=== PATIENT | female | born 1955 | race Caucasian/White ===

== ENCOUNTER 2021-08-31 16:41 | Inpatient (IN) | payer MEDICARE, OTHER, SELFPAY ==
--- NOTE | ~2021-08-31 | XR_ITS ---
EXAMINATION: XR CHEST CLINICAL INFORMATION: Hypoxia COMPARISON: Previous CXR from 11/19/2021 TECHNIQUE: Frontal view of the chest was obtained. FINDINGS: No significant abnormality is noted involving the heart, lungs, mediastinum, bony thorax or soft tissues. XR/XR chest 1V IMPRESSION: Unremarkable examination.
--- NOTE | ~2021-08-31 | XR_ITS ---
EXAMINATION: XR CHEST, 2 VIEWS CLINICAL INFORMATION: Hypoxemia COMPARISON: None. TECHNIQUE: PA and lateral views of the chest were obtained. FINDINGS: Lungs are clear. No consolidation, pneumothorax, or pleural effusion. Cardiac and mediastinal contours are normal. Pulmonary vasculature is unremarkable. Trachea is midline. Osseous structures are unremarkable. Degenerative spondylosis in the thoracic spine. XR/XR chest 2V IMPRESSION: No acute cardiopulmonary findings
--- NOTE | 2021-08-31 17:02 | ED_ITS ---
HPI - General Adult General Chief complaint: Psychiatric Symptoms <CARLEY Schmitt Last Filed: 09/01/21 01:08> Stated complaint: CRISIS, SECTION 12 <CARLEY Schmitt Last Filed: 09/01/21 01:08> Time Seen by Provider: 08/31/21 16:44 <CARLEY Schmitt Last Filed: 09/01/21 01:08> Source: patient and EMS <CARLEY Schmitt Last Filed: 09/01/21 01:08> Mode of arrival: EMS <CARLEY Schmitt Last Filed: 09/01/21 01:08> History of Present Illness HPI narrative: 65-year-old female with a past medical history of schizophrenia BIBA after having family conflict, and being off medications x3 weeks. Patient reports she does not need to be in the hospital, he does not need her family, and she does not need her medications any more. Denies SI/HI. Denies visual or auditory hallucinations, ETOH or illicit drug use, CP/SOB, abdominal pain, nausea/vomiting Patient not forthcoming with history <CARLEY Schmitt Last Filed: 09/01/21 01:08> Related Data Allergies/adverse reactions: Allergies Allergy/AdvReac Type Severity Reaction Status Date / Time No Known Allergies Allergy Unverified 08/05/20 17:11 [No Known Allergies*] <CARLEY Schmitt Last Filed: 09/01/21 01:08> Review of Systems Review of Systems: Constitutional: No Fever, No Chills, No Fatigue, No Malaise ENT/Mouth: No Ear Pain, No Nasal Congestion, No sore throat, No Rhinorrhea Eyes: No Eye Pain, No Vision Changes Cardiovascular: No Chest Pain, No SOB Respiratory: No Cough, No Dyspnea Gastrointestinal: No Nausea, No Vomiting, No Diarrhea, No Constipation, No Abdominal pain Genitourinary: No Dysuria, No Urinary Frequency, No Flank Pain Musculoskeletal: No joint pain, No Myalgias, No Joint Swelling Skin: No Skin Lesions, No rash Neuro: No Weakness, No Headache Psych: No Anxiety/Panic, No Depression, No SI/HI, No AH/VH, No Social Issues <CARLEY Schmitt Last Filed: 09/01/21 01:08> Yes all other systems are reviewed and are negative <CARLEY Schmitt - Last Filed: 09/01/21 01:08> FOR[facility]LY [facility] Past Medical History Attestation statement: The following information was validated with the patient. <CARLEY Schmitt - Last Filed: 09/01/21 01:08> Social History Social History: Social History Advance Directives: No Advance Directives Information Provided: Yes Patient : No <CARLEY Schmitt - Last Filed: 09/01/21 01:08> Physical Exam Vital Signs: Vital Signs: Last Vital Signs Temp 98.0 F 08/31/21 23:07 Pulse 79 09/01/21 06:43 Resp 17 08/31/21 23:07 BP 134/66 09/01/21 06:43 Pulse Ox 97 09/01/21 06:43 Body Mass Index 32.3 <CARLEY Schmitt - Last Filed: 09/01/21 01:08> Vital Signs: Last Vital Signs Temp 98.0 F 08/31/21 23:07 Pulse 79 09/01/21 06:43 Resp 17 08/31/21 23:07 BP 134/66 09/01/21 06:43 Pulse Ox 97 09/01/21 06:43 Body Mass Index 32.3 <Ezra Mclaughlin MD - Last Filed: 09/01/21 08:23> Const: General: cooperative, healthy appearing and no acute distress <CARLEY Schmitt - Last Filed: 09/01/21 01:08> Limitations: no limitations <CARLEY Schmitt - Last Filed: 09/01/21 01:08> HENMT: Head: Yes normal to inspection <CARLEY Schmitt - Last Filed: 09/01/21 01:08> Ears: hearing grossly normal bilaterally <CARLEY Schmitt - Last Filed: 09/01/21 01:08> General nose exam: Normal external nose present <CARLEY Schmitt - Last Filed: 09/01/21 01:08> Face and sinus: Yes normal facial exam <CARLEY Schmitt - Last Filed: 09/01/21 01:08> Eyes: General: appearance normal, both eyes and all related structures <CARLEY Schmitt - Last Filed: 09/01/21 01:08> Pupils: Equal, round and reactive pupils present <Chula Eva [facility] Last Filed: 09/01/21 01:08> EOM: EOMs intact bilaterally <Chula [facility] - Last Filed: 09/01/21 01:08> Neck: Neck: Yes normal visual inspection and Yes no meningeal signs <Chula Eva [facility] Last Filed: 09/01/21 01:08> Resp: Effort & Inspection: normal respiratory effort <Chula [facility] - Last Filed: 09/01/21 01:08> Auscultation: clear to auscultation bilaterally, no crackles and no wheezes <Chula [facility] - Last Filed: 09/01/21 01:08> Cardio: Rate: regular rate <Chula Eva [facility] Last Filed: 09/01/21 01:08> Heart sounds: S1 normal heart sound present and S2 normal heart sound present <Chula [facility] - Last Filed: 09/01/21 01:08> GI: Inspection: Yes normal to inspection <Chula Eva [facility] Last Filed: 09/01/21 01:08> Palpation (GI): Soft to palpation, nontender, no guarding and not rigid <Chula [facility] - Last Filed: 09/01/21 01:08> Skin: Rashes: no rashes <Chula [facility] - Last Filed: 09/01/21 01:08> Wounds: no wounds <Chula Eva [facility] Last Filed: 09/01/21 01:08> Neuro: General: gait normal, tone normal, moves all extremities and no meningeal signs <Chula Eva [facility] Last Filed: 09/01/21 01:08> Cranial nerves: Yes CN's II-XII intact bilaterally and Yes Equal, round and reactive pupils present <Chula [facility] - Last Filed: 09/01/21 01:08> Gait exam (Neuro): Normal gait present <Chula Eva [facility] Last Filed: 09/01/21 01:08> Extrem: General: Yes normal to inspection <Chula [facility] - Last Filed: 09/01/21 01:08> Psych: Affect: Irritable affect present and Blunted affect present <CARLEY Schmitt - Last Filed: 09/01/21 01:08> Attitude: Guarded attititude/behavior present and Avoids eye contact (attititude/behavior) <CARLEY Schmitt - Last Filed: 09/01/21 01:08> Thought content: suicidality and no homicidality <CARLEY Schmitt Last Filed: 09/01/21 01:08> Insight: Limited insight present (Psych) <CARLEY Schmitt Last Filed: 09/01/21 01:08> Judgement: Limited judgement present (Psych) <CARLEY Schmitt - Last Filed: 09/01/21 01:08> Course Course Course Narrative: -1833--mild leukocytosis of 11 -AST/ALT mildly elevated. Labs otherwise unremarkable. Tox screen negative -0100--ED care transferred to Dr. Azul pending crisis eval. Patient placed in physician observation as needs more time to be evaluated by crisis <CARLEY Schmitt Last Filed: 09/01/21 01:08> -1833--mild leukocytosis of 11 -AST/ALT mildly elevated. Labs otherwise unremarkable. Tox screen negative -0100--ED care transferred to Dr. Azul pending crisis eval. Patient placed in physician observation as needs more time to be evaluated by crisis 08:15 patient re-evaluated by ED MD, Dr. Mclaughlin, patient awaiting placement, has been stable overnight. <Ezra Mclaughlin MD - Last Filed: 09/01/21 08:23> Medical Decision Making MDM Narrative Medical decision making narrative: 65-year-old female with a past medical history of schizophrenia BIBA after having family conflict, and being off medications x3 weeks. Patient reports she does not need to be in the hospital, he does not need her family, and she does not need her medications any more. On exam tachycardic, NAD, not forthcoming with history, guarded. Denies SI/HI. Exam nonfocal Plan: Labs, UA, BROOKS, crisis consult <CARLEY Schmitt Last Filed: 09/01/21 01:08> Lab Data Result diagrams: : 08/31/21 18:02 08/31/21 18:02 <CARLEY Schmitt - Last Filed: 09/01/21 01:08> Labs: Lab Results 08/31/21 08/31/21 08/31/21 Range/Units 18:02 18:02 18:44 WBC 11.0 H (4.8-10.8) X10*3/uL RBC 4.60 (4.20-5.50) X10*6/uL Hgb 14.2 (12.0-16.0) g/dl Hct 42.4 (37-47) % MCV 92.2 (80-98) fL MCH 30.9 (27.0-33.0) pg MCHC 33.5 (31.0-35.0) g/dl RDW 12.9 (11.0-16.0) % Plt Count 337 (160-400) X10*3/uL MPV 8.9 L (9.4-12.3) fL Immature Gran % (Auto) 1.1 H (0.0-0.4) % Neut % (Auto) 74.9 H (45-73) % Lymph % (Auto) 14.7 L (20-40) % Reagan % (Auto) 7.6 (2-11) % Eos % (Auto) 1.2 (0-4) % Baso % (Auto) 0.5 (0-2) % Lymph # (Auto) 1.6 (1.2-4.9) X10*3/uL Reagan # (Auto) 0.8 (0.1-1.2) X10*3/uL Eos # (Auto) 0.1 (0.0-0.4) X10*3/uL Baso # (Auto) 0.1 (0.0-0.2) X10*3/uL Abs Immat Gran (auto) 0.12 H (0.00-0.03) X10*3/uL Absolute Neuts (auto) 8.2 (2.0-8.3) X10*3/uL Absolute Nucleated RBC 0.000 (0.0-0.012) X10*3/uL Nucleated RBC % (auto) 0.0 (0.0-0.2) /100WBC Sodium 142 (135-145) mmol/L Potassium 4.5 (3.3-5.1) mmol/L Chloride 105 (96-108) mmol/L Carbon Dioxide 28 (22-29) mmol/L Anion Gap 14 (12-20) BUN 13 (9-16) mg/dL Creatinine 1.24 (0.5-1.4) mg/dL Estim Creat Clear Calc 42.0 Estimated GFR 44 Random Glucose 128 H (60-115) mg/dL Calcium 10.6 H (8.4-10.2) mg/dL Total Bilirubin 0.2 (0.0-1.0) mg/dL Direct Bilirubin < 0.2 (0.0-0.5) mg/dL AST 33 H (5-31) U/L ALT 47 H (0-31) U/L Alkaline Phosphatase 109 (39-117) U/L Total Protein 6.7 (6.5-8.0) g/dL Albumin 4.4 (3.5-5.0) g/dL Urine Opiates Screen (Not Detect) Urine Fentanyl Screen (Not Detect) Ur Barbiturates Screen (Not Detect) Ur Phencyclidine Scrn (Not Detect) Ur Amphetamines Screen (Not Detect) U Benzodiazepines Scrn (Not Detect) Urine Cocaine Screen (Not Detect) U Marijuana (THC) Screen (Not Detect) COVID-19 (ABIODUN) Negative (Negative) COVID-19 Clin Com See Note 08/31/21 Range/Units 18:54 WBC (4.8-10.8) X10*3/uL RBC (4.20-5.50) X10*6/uL Hgb (12.0-16.0) g/dl Hct (37-47) % MCV (80-98) fL MCH (27.0-33.0) pg MCHC (31.0-35.0) g/dl RDW (11.0-16.0) % Plt Count (160-400) X10*3/uL MPV (9.4-12.3) fL Immature Gran % (Auto) (0.0-0.4) % Neut % (Auto) (45-73) % Lymph % (Auto) (20-40) % Reagan % (Auto) (2-11) % Eos % (Auto) (0-4) % Baso % (Auto) (0-2) % Lymph # (Auto) (1.2-4.9) X10*3/uL Reagan # (Auto) (0.1-1.2) X10*3/uL Eos # (Auto) (0.0-0.4) X10*3/uL Baso # (Auto) (0.0-0.2) X10*3/uL Abs Immat Gran (auto) (0.00-0.03) X10*3/uL Absolute Neuts (auto) (2.0-8.3) X10*3/uL Absolute Nucleated RBC (0.0-0.012) X10*3/uL Nucleated RBC % (auto) (0.0-0.2) /100WBC Sodium (135-145) mmol/L Potassium (3.3-5.1) mmol/L Chloride (96-108) mmol/L Carbon Dioxide (22-29) mmol/L Anion Gap (12-20) BUN (9-16) mg/dL Creatinine (0.5-1.4) mg/dL Estim Creat Clear Calc Estimated GFR Random Glucose (60-115) mg/dL Calcium (8.4-10.2) mg/dL Total Bilirubin (0.0-1.0) mg/dL Direct Bilirubin (0.0-0.5) mg/dL AST (5-31) U/L ALT (0-31) U/L Alkaline Phosphatase (39-117) U/L Total Protein (6.5-8.0) g/dL Albumin (3.5-5.0) g/dL Urine Opiates Screen Not Detected (Not Detect) Urine Fentanyl Screen Not Detected (Not Detect) Ur Barbiturates Screen Not Detected (Not Detect) Ur Phencyclidine Scrn Not Detected (Not Detect) Ur Amphetamines Screen Not Detected (Not Detect) U Benzodiazepines Scrn Not Detected (Not Detect) Urine Cocaine Screen Not Detected (Not Detect) U Marijuana (THC) Screen Not Detected (Not Detect) COVID-19 (ABIODUN) (Negative) COVID-19 Clin Com <CARLEY Schmitt - Last Filed: 09/01/21 01:08> Lab Results 08/31/21 08/31/21 08/31/21 Range/Units 18:02 18:02 18:44 WBC 11.0 H (4.8-10.8) X10*3/uL RBC 4.60 (4.20-5.50) X10*6/uL Hgb 14.2 (12.0-16.0) g/dl Hct 42.4 (37-47) % MCV 92.2 (80-98) fL MCH 30.9 (27.0-33.0) pg MCHC 33.5 (31.0-35.0) g/dl RDW 12.9 (11.0-16.0) % Plt Count 337 (160-400) X10*3/uL MPV 8.9 L (9.4-12.3) fL Immature Gran % (Auto) 1.1 H (0.0-0.4) % Neut % (Auto) 74.9 H (45-73) % Lymph % (Auto) 14.7 L (20-40) % Reagan % (Auto) 7.6 (2-11) % Eos % (Auto) 1.2 (0-4) % Baso % (Auto) 0.5 (0-2) % Lymph # (Auto) 1.6 (1.2-4.9) X10*3/uL Reagan # (Auto) 0.8 (0.1-1.2) X10*3/uL Eos # (Auto) 0.1 (0.0-0.4) X10*3/uL Baso # (Auto) 0.1 (0.0-0.2) X10*3/uL Abs Immat Gran (auto) 0.12 H (0.00-0.03) X10*3/uL Absolute Neuts (auto) 8.2 (2.0-8.3) X10*3/uL Absolute Nucleated RBC 0.000 (0.0-0.012) X10*3/uL Nucleated RBC % (auto) 0.0 (0.0-0.2) /100WBC Sodium 142 (135-145) mmol/L Potassium 4.5 (3.3-5.1) mmol/L Chloride 105 (96-108) mmol/L Carbon Dioxide 28 (22-29) mmol/L Anion Gap 14 (12-20) BUN 13 (9-16) mg/dL Creatinine 1.24 (0.5-1.4) mg/dL Estim Creat Clear Calc 42.0 Estimated GFR 44 Random Glucose 128 H (60-115) mg/dL Calcium 10.6 H (8.4-10.2) mg/dL Total Bilirubin 0.2 (0.0-1.0) mg/dL Direct Bilirubin < 0.2 (0.0-0.5) mg/dL AST 33 H (5-31) U/L ALT 47 H (0-31) U/L Alkaline Phosphatase 109 (39-117) U/L Total Protein 6.7 (6.5-8.0) g/dL Albumin 4.4 (3.5-5.0) g/dL Urine Opiates Screen (Not Detect) Urine Fentanyl Screen (Not Detect) Ur Barbiturates Screen (Not Detect) Ur Phencyclidine Scrn (Not Detect) Ur Amphetamines Screen (Not Detect) U Benzodiazepines Scrn (Not Detect) Urine Cocaine Screen (Not Detect) U Marijuana (THC) Screen (Not Detect) COVID-19 (ABIODUN) Negative (Negative) COVID-19 Clin Com See Note 08/31/21 Range/Units 18:54 WBC (4.8-10.8) X10*3/uL RBC (4.20-5.50) X10*6/uL Hgb (12.0-16.0) g/dl Hct (37-47) % MCV (80-98) fL MCH (27.0-33.0) pg MCHC (31.0-35.0) g/dl RDW (11.0-16.0) % Plt Count (160-400) X10*3/uL MPV (9.4-12.3) fL Immature Gran % (Auto) (0.0-0.4) % Neut % (Auto) (45-73) % Lymph % (Auto) (20-40) % Reagan % (Auto) (2-11) % Eos % (Auto) (0-4) % Baso % (Auto) (0-2) % Lymph # (Auto) (1.2-4.9) X10*3/uL Reagan # (Auto) (0.1-1.2) X10*3/uL Eos # (Auto) (0.0-0.4) X10*3/uL Baso # (Auto) (0.0-0.2) X10*3/uL Abs Immat Gran (auto) (0.00-0.03) X10*3/uL Absolute Neuts (auto) (2.0-8.3) X10*3/uL Absolute Nucleated RBC (0.0-0.012) X10*3/uL Nucleated RBC % (auto) (0.0-0.2) /100WBC Sodium (135-145) mmol/L Potassium (3.3-5.1) mmol/L Chloride (96-108) mmol/L Carbon Dioxide (22-29) mmol/L Anion Gap (12-20) BUN (9-16) mg/dL Creatinine (0.5-1.4) mg/dL Estim Creat Clear Calc Estimated GFR Random Glucose (60-115) mg/dL Calcium (8.4-10.2) mg/dL Total Bilirubin (0.0-1.0) mg/dL Direct Bilirubin (0.0-0.5) mg/dL AST (5-31) U/L ALT (0-31) U/L Alkaline Phosphatase (39-117) U/L Total Protein (6.5-8.0) g/dL Albumin (3.5-5.0) g/dL Urine Opiates Screen Not Detected (Not Detect) Urine Fentanyl Screen Not Detected (Not Detect) Ur Barbiturates Screen Not Detected (Not Detect) Ur Phencyclidine Scrn Not Detected (Not Detect) Ur Amphetamines Screen Not Detected (Not Detect) U Benzodiazepines Scrn Not Detected (Not Detect) Urine Cocaine Screen Not Detected (Not Detect) U Marijuana (THC) Screen Not Detected (Not Detect) COVID-19 (ABIODUN) (Negative) COVID-19 Clin Com <Ezra Mclaughlin MD - Last Filed: 09/01/21 08:23> Discharge Plan Discharge Clinical Impression: Chronic schizophrenia <CARLEY Schmitt - Last Filed: 09/01/21 01:08>
[2021-08-31 17:06] VITALS: BP 141/98; PULSE 117; RESP 16; TEMP 36.6; O2SAT 96; BMI 32.3
[2021-08-31 18:10] LABS: MANUAL DIFF FLAG NO
[2021-08-31 18:21] LABS: Basophils Absolute Auto 0.1 X10*3/uL (0.0-0.2); Basophils Percent Auto 0.5 % (0-2); Eosinophils Absolute Auto 0.1 X10*3/uL (0.0-0.4); Eosinophils Percent Auto 1.2 % (0-4); Hematocrit 42.4 % (37-47); Hemoglobin 14.2 g/dl (12.0-16.0); Imm Gran Abs Auto 0.12 X10*3/uL (0.00-0.03); Imm Gran Pct Auto 1.1 % (0.0-0.4); Lymphocytes Absolute Auto 1.6 X10*3/uL (1.2-4.9); Lymphocytes Percent Auto 14.7 % (20-40); Mean Corpuscular HGB Conc 33.5 g/dl (31.0-35.0); Mean Corpuscular Hemoglobin 30.9 pg (27.0-33.0); Mean Corpuscular Volume 92.2 fL (80-98); Mean Platelet Volume 8.9 fL (9.4-12.3); Monocytes Absolute Auto 0.8 X10*3/uL (0.1-1.2); Monocytes Percent Auto 7.6 % (2-11); Neutrophils Absolute Auto 8.2 X10*3/uL (2.0-8.3); Neutrophils Percent Auto 74.9 % (45-73); Platelet Count 337 X10*3/uL (160-400); Red Cell Distribution Width 12.9 % (11.0-16.0)
[2021-08-31 18:38] LABS: Alanine Aminotransferase 47 U/L (0-31); Albumin Level 4.4 g/dL (3.5-5.0); Alkaline Phosphatase 109 U/L (39-117); Anion Gap 14 (12-20); Aspartate Amino Transferase 33 U/L (5-31); Bilirubin Direct < 0.2 mg/dL (0.0-0.5); Bilirubin Total 0.2 mg/dL (0.0-1.0); Blood Urea Nitrogen 13 mg/dL (9-16); Carbon Dioxide 28 mmol/L (22-29); Chloride 105 mmol/L (96-108); Estimated Glomerular Filt Rate 44; Glucose Random 128 mg/dL (60-115); Potassium 4.5 mmol/L (3.3-5.1); Sodium 142 mmol/L (135-145); Total Protein 6.7 g/dL (6.5-8.0)
[2021-08-31 18:43] LABS: Calcium 10.6 mg/dL (8.4-10.2)
[2021-08-31 19:13] LABS: COVID-19 Test Negative (Negative); IDNOW Serial# 9DD0AD1C
[2021-08-31 19:18] LABS: Amphetamine Screen Urine Not Detected (Not Detect); Barbiturates, Urine Not Detected (Not Detect); Benzodiazepines Screen Urine Not Detected (Not Detect); Cannabinoid Screen Urine Not Detected (Not Detect); Cocaine Screen Urine Not Detected (Not Detect); Fentanyl, urine Not Detected (Not Detect); Opiate Screen Urine Not Detected (Not Detect); Phencyclidine Screen Urine Not Detected (Not Detect)
--- NOTE | 2021-08-31 23:03 | PC.NURSE ---
Patient seems preoccupied and upset for being here. Patient stated I should not be here off her medication for over month. Affect is flat. Denied being anxious, offered/refused prn medication, will continue to monitor.
[2021-08-31 23:07] VITALS: BP 149/73; PULSE 111; RESP 17; TEMP 36.7; O2SAT 95
--- NOTE | 2021-09-01 05:17 | PC.NURSE ---
Patient slept through the night, no distress observed/reported, behavior calm, quiet, isolative, affect flat. VSS, Patient disposition per [facility] is section 12 inpatient bed search, appetite good, patient is off her medication for over a month, will continue to monitor.
[2021-09-01 06:43] VITALS: BP 134/66; PULSE 79; O2SAT 97
--- NOTE | 2021-09-01 07:19 | PC.NURSE ---
patient appears to remain at rest at present patient appears in no distress
[2021-09-01 08:43] VITALS: BP 143/74; PULSE 92; TEMP 37.3; O2SAT 94
--- NOTE | 2021-09-01 09:21 | PHA.MEDREC ---
Pharmacy Consult ? Medication Reconciliation Pharmacy has completed the medication reconciliation. Patient reports she has taken any medication for 3-4 weeks. The only thing she takes is ibuprofen for tooth pain, but has not had any pain recently. Tata Pham, PharmD
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
[2021-09-01 18:00] VITALS: BP 114/73; PULSE 111; RESP 16; TEMP 37; O2SAT 95
--- NOTE | 2021-09-01 20:04 | PC.NURSE ---
Pt is a 65 year old unmarried female admitted to the unit on a section 12b from [facility] ed pod where she was brought after a BHN assessment was called to a mobile unit; per crisis report and pt report, police had to pick the lock to enter pt's home and bring her to the hospital. Per crisis report pt's four sisters became concerned as she was calling them all at different times and sounded disorganized and paranoid. Pt has a long history of psychiatric illness starting age 20 and has had multiple hospitalizations and several suicide attempts by overdose; at this time she denies having had any suicidal thoughts or behaviors, stating, I stopped taking my medications about three weeks ago because my right arm was shaking . Pt at times has good eye contact and is fully oriented; she was guarded and became irritable during the admission, refusing to sign legal documents, which she seemed suspicious about, and insisting she is here against her will and that her sisters put me here . Pt receives services from [facility]. Pt is on 15 minute checks, section 12 is up on Thursday 09/06, [facility]orne is aware of pt's admit, meds verified with [facility].
--- NOTE | 2021-09-01 21:37 | PC.ADMIT ---
Addendum entered by Sunitha Almaraz RN 09/01/21 21:42: corrrection to legal status, pt is nolonger a 12b, signed a CV Original Note: Pt is a 65 year old unmarried female admitted to the unit on a section 12b from [facility] ed pod where she was brought after a BHN assessment was called to a mobile unit; per crisis report and pt report, police had to pick the lock to enter pt's home and bring her to the hospital. Per crisis report pt's four sisters became concerned as she was calling them all at different times and sounded disorganized and paranoid. Pt has a long history of psychiatric illness starting age 20 and has had multiple hospitalizations and several suicide attempts by overdose; at this time she denies having had any suicidal thoughts or behaviors, stating, I stopped taking my medications about three weeks ago because my right arm was shaking . Pt at times has good eye contact and is fully oriented; she was guarded and became irritable during the admission, refusing to sign legal documents, which she seemed suspicious about, and insisting she is here against her will and that her sisters put me here . Pt receives services from [facility]. Pt is on 15 minute checks, section 12 is up on Thursday 09/06, [facility] is aware of pt's admit, meds verified with [facility]. Initialized on 09/01/21 20:04 - END OF NOTE
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
[2021-09-02 08:40] VITALS: BP 140/71; PULSE 86
[2021-09-02 08:48] LABS: Estimated Average Glucose 134 mg/dL; Hemoglobin A1c % 6.3 %
[2021-09-02 09:28] LABS: Cholesterol 178 mg/dL; HDL Cholesterol 35 mg/dL; LDL Cholesterol Calculated 110 mg/dl; Triglycerides 168 mg/dL
[2021-09-02 09:38] LABS: Free T4 (Free Thyroxine) 0.98 ng/dL (0.71-1.85); Thyroid Stimulating Hormone 0.58 uIU/mL (0.32-4.0)
[2021-09-02 09:49] LABS: Folate 11.6 ng/mL (> or = 4.0); Vitamin B12 481 pg/mL (200-900)
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
[2021-09-03 06:00] VITALS: BP 147/70; PULSE 91; RESP 18; TEMP 36.7; O2SAT 95
--- NOTE | 2021-09-03 12:22 | PC.NURSE ---
pt refusing all am medication. dr. roche aware.
--- NOTE | 2021-09-03 22:18 | HO.PSYCHPN ---
Subjective Subjective Date of Service: 09/04/21 Reason For Visit: schizophrenia Subjective Notes: Conditional Voluntary Healthcare Proxy: No Guardianship: No Interim History: Pt has been withdrawn mostly not engaged refusing shower meds isolative and withdrawn Medication Compliance: No Attending Groups: No Mental Status Exam Mental Status Exam Narrative: Appearance: casually groomed, fair hygiene in NAD Behavior: guarded although fairly pleasant when she recognized this telegraphic typewriter repairer from previous admission psychomotor: some restlessness Speech:mumbles at times, minimally spontaneous, delayed response Thought process:thought blocking Thought content:guarded, wanting to go back home Mood: okay Affect: suspicious, guarded SI:none HI:none VH/AH:denies but appears internally preoccupied Delusions:paranoid delusions Insight/judgment:impaired x 3 Memory/cog: alert, impaired secondary to psychiatric symptoms. Diagnostics Vital Signs (24Hr): Vital Signs - 24 hr 09/03/21 06:00 Temperature 98.0 F Pulse Rate 91 Respiratory Rate 18 Blood Pressure 147/70 H Pulse Oximetry 95 Body Mass Index 32.3 Labs Results: 08/31/21 18:02 08/31/21 18:02 Labs: Laboratory Results - last 48 hr 09/02/21 09/02/21 09/02/21 08:06 08:06 08:06 Estimat Average Glucose 134 Hemoglobin A1c % 6.3 Triglycerides 168 Cholesterol 178 LDL Cholesterol, Calc 110 HDL Cholesterol 35 Vitamin B12 481 Folate 11.6 TSH 0.58 Free T4 0.98 Medications Medications Current Medications Acetaminophen (Acetaminophen 325 Mg Tablet) 650 mg PO Q6H PRN PRN Reason: Headache/Pain Mild Scale (1-3) Al Hydroxide/Mg Hydroxide (Magnesium Hydrox/Alum Hydrox 30 Ml Oral.Susp) 30 ml PO Q6H PRN PRN Reason: Heartburn/Nausea Haloperidol (Haloperidol 1 Mg Tablet) 2 mg PO BID [facility] Last Admin: 09/03/21 21:29 Dose: Not Given Documented by: Hydroxyzine HCl (Hydroxyzine Hcl 25 Mg Tablet) 25 mg PO BEDTIME PRN PRN Reason: Anxiety Ibuprofen (Ibuprofen 400 Mg Tablet) 400 mg PO Q6H PRN PRN Reason: tooth pain Lorazepam (Lorazepam 1 Mg Tablet) 1 mg PO Q4H PRN PRN Reason: insomnia/anxiety Magnesium Hydroxide (Milk Of Magnesia 30 Ml Oral.Susp) 30 ml PO DAILY PRN PRN Reason: Constipation Olanzapine (Olanzapine 5 Mg Tablet) 5 mg PO Q4H PRN PRN Reason: agitation Pharmacy Consult (Consult Rx Perform Med Rec) 1 each MISCELLANE ONCE PRN PRN Reason: Consult order Propranolol HCl (Propranolol Hcl 20 Mg Tablet) 20 mg PO TID [facility]; Protocol Last Admin: 09/03/21 21:30 Dose: Not Given Documented by: Trazodone HCl (Trazodone Hcl 50 Mg Tablet) 50 mg PO BEDTIME PRN PRN Reason: Insomnia Allergies Allergies Allergy/AdvReac Type Severity Reaction Status Date / Time No Known Allergies Allergy Unverified 08/05/20 17:11 [No Known Allergies*] Assessment & Plan Assessment & Plan (1) Schizoaffective disorder, bipolar type: Status: Acute Code(s): F25.0 - Schizoaffective disorder, bipolar type Assessment and Plan: Ms. Carvajal is a 65 year-old woman with hx of schizoaffective disorder who was brought to [facility] via EMS as pt presented increasingly more paranoid, disorganized and unable to care for self (not eating well, not following with appointments which she regularly does). We discussed risks, benefits and alternative treatment options PLAN 1. Admit to M5 2. for now continue haldol 2mg po BID, will titrate as needed. 3. obtain collateral information 4. Aftercare planning 5. monitor safety- currently on 15 checks cont above encourage acceptance of tx . Greater than 50% of the session was spent on counseling and/or coordination of care Reason for contiued inpatient stay Substantial Risk for: inability to function and rapid decompensation
--- NOTE | 2021-09-04 11:58 | HO.PSYCHPN ---
Subjective Subjective Date of Service: 09/04/21 Reason For Visit: schizophrenia Subjective Notes: Conditional Voluntary Interim History: Patient withdrawn and internally preoccupied did not engage in conversation vital signs or grooming. Refusing medication Medication Compliance: No Side effects from medications: No Attending Groups: No Review of Systems Refusing propranolol Mental Status Exam Mental Status Exam Patient Appearance: Disheveled Patient Orientation: Person and Place Level of Consciousness: Awake Patient Behavior: Guarded and Poor Eye Contact Mood Description: Anxious and Apprehensive Affect Description: Constricted Ability to Follow Directions: Fair Speech Pattern: Clear, Impoverished and Monotone Judgement: Poor Judgement and Insight: Patient refusing medication cannot really explain saying she does not needed anymore. Guarded difficult to evaluate for paranoia or hallucinations patient not willing to engage no gross thoughts of harm to herself or others Diagnostics Vital Signs (24Hr): Body Mass Index 32.3 Labs Results: 08/31/21 18:02 08/31/21 18:02 Medications Medications Current Medications Acetaminophen (Acetaminophen 325 Mg Tablet) 650 mg PO Q6H PRN PRN Reason: Headache/Pain Mild Scale (1-3) Al Hydroxide/Mg Hydroxide (Magnesium Hydrox/Alum Hydrox 30 Ml Oral.Susp) 30 ml PO Q6H PRN PRN Reason: Heartburn/Nausea Haloperidol (Haloperidol 1 Mg Tablet) 2 mg PO BID [facility] Last Admin: 09/04/21 08:10 Dose: Not Given Documented by: Hydroxyzine HCl (Hydroxyzine Hcl 25 Mg Tablet) 25 mg PO BEDTIME PRN PRN Reason: Anxiety Ibuprofen (Ibuprofen 400 Mg Tablet) 400 mg PO Q6H PRN PRN Reason: tooth pain Lorazepam (Lorazepam 1 Mg Tablet) 1 mg PO Q4H PRN PRN Reason: insomnia/anxiety Magnesium Hydroxide (Milk Of Magnesia 30 Ml Oral.Susp) 30 ml PO DAILY PRN PRN Reason: Constipation Olanzapine (Olanzapine 5 Mg Tablet) 5 mg PO Q4H PRN PRN Reason: agitation Pharmacy Consult (Consult Rx Perform Med Rec) 1 each MISCELLANE ONCE PRN PRN Reason: Consult order Propranolol HCl (Propranolol Hcl 20 Mg Tablet) 20 mg PO TID [facility]; Protocol Last Admin: 09/04/21 08:10 Dose: Not Given Documented by: Trazodone HCl (Trazodone Hcl 50 Mg Tablet) 50 mg PO BEDTIME PRN PRN Reason: Insomnia Allergies Allergies Allergy/AdvReac Type Severity Reaction Status Date / Time No Known Allergies Allergy Unverified 08/05/20 17:11 [No Known Allergies*] Assessment & Plan Assessment & Plan (1) Schizoaffective disorder, bipolar type: Status: Acute Code(s): F25.0 - Schizoaffective disorder, bipolar type Assessment and Plan: Ms. Carvajal is a 65 year-old woman with hx of schizoaffective disorder who was brought to [facility] [place] [place] [facility] via EMS as pt presented increasingly more paranoid, disorganized and unable to care for self (not eating well, not following with appointments which she regularly does). We discussed risks, benefits and alternative treatment options PLAN 1. Admit to M5 2. for now continue haldol 2mg po BID, will titrate as needed. 3. obtain collateral information 5. monitor safety- currently on 15 checks cont above encourage acceptance of tx . bove reviewed patient refusing care vital Signs refusing medication refusing to [place] herself Will need to evaluate need for commitment and Raman. Obtain further data regarding ability to care for herself in the community Greater than 50% of the session was spent on counseling and/or coordination of care Reason for contiued inpatient stay Substantial Risk for: inability to function and rapid decompensation
[2021-09-04 18:00] VITALS: RESP 16
--- NOTE | 2021-09-05 10:55 | P.PNPSI_ITS ---
Subjective Subjective Date of Service: 09/05/21 Reason For Visit: schizophrenia Interim History: Pt seen on 09/05 Patient sitting on the bed in her room on approach. Color Mixer introduced self to which patient said she did not want to talk to physician underwriter, saying you're not from this floor..you're not staff here...you're not even from this floor. Color Mixer tried to engage however Patient said I don't think you're a real doctor and then got up and walked out of the room. Medication Compliance: No Mental Status Exam Mental Status Exam Narrative: Patient Appearance:?Disheveled; poor hygiene Patient Orientation:?Person and Place Level of Consciousness:?Awake Patient Behavior:?Guarded, suspicious, not cooperative; Poor Eye Contact Mood Description:?Anxious and irritable Affect Description:?Constricted Ability to Follow Directions:?fair Speech Pattern:?Normal rate, volume and prosody; not pressured; clear Thought process: goal oriented Thought Content: paranoid of staff; denies SI/HI Perception: too guarded to evaluate for AVH Psychomotor agitation/retardation: none Judgment and Insight:?Impaired; Patient refusing medication cannot really explain saying she does not needed anymore; not bathing Diagnostics Vital Signs (24Hr): Vital Signs - 24 hr 09/04/21 18:00 Respiratory Rate 16 Body Mass Index 32.3 Labs Results: 08/31/21 18:02 08/31/21 18:02 Medications Medications Current Medications Acetaminophen (Acetaminophen 325 Mg Tablet) 650 mg PO Q6H PRN PRN Reason: Headache/Pain Mild Scale (1-3) Al Hydroxide/Mg Hydroxide (Magnesium Hydrox/Alum Hydrox 30 Ml Oral.Susp) 30 ml PO Q6H PRN PRN Reason: Heartburn/Nausea Haloperidol (Haloperidol 1 Mg Tablet) 2 mg PO BID [facility] Last Admin: 09/05/21 10:54 Dose: Not Given Documented by: Hydroxyzine HCl (Hydroxyzine Hcl 25 Mg Tablet) 25 mg PO BEDTIME PRN PRN Reason: Anxiety Ibuprofen (Ibuprofen 400 Mg Tablet) 400 mg PO Q6H PRN PRN Reason: tooth pain Lorazepam (Lorazepam 1 Mg Tablet) 1 mg PO Q4H PRN PRN Reason: insomnia/anxiety Magnesium Hydroxide (Milk Of Magnesia 30 Ml Oral.Susp) 30 ml PO DAILY PRN PRN Reason: Constipation Olanzapine (Olanzapine 5 Mg Tablet) 5 mg PO Q4H PRN PRN Reason: agitation Pharmacy Consult (Consult Rx Perform Med Rec) 1 each MISCELLANE ONCE PRN PRN Reason: Consult order Propranolol HCl (Propranolol Hcl 20 Mg Tablet) 20 mg PO TID [facility]; Protocol Last Admin: 09/05/21 10:54 Dose: Not Given Documented by: Trazodone HCl (Trazodone Hcl 50 Mg Tablet) 50 mg PO BEDTIME PRN PRN Reason: Insomnia Allergies Allergies Allergy/AdvReac Type Severity Reaction Status Date / Time No Known Allergies Allergy Unverified 08/05/20 17:11 [No Known Allergies*] Assessment & Plan Assessment & Plan (1) Schizoaffective disorder, bipolar type: Status: Acute Code(s): F25.0 - Schizoaffective disorder, bipolar type Assessment and Plan: Ms. Carvajal is a 65 year-old woman with hx of schizoaffective disorder who was [place] [facility] [place] after sister called 911 as pt presented increasingly more paranoid, disorganized and unable to care for self (not eating well, not following with appointments which she regularly does), not taking meds (history of similar behaviors, missing for days, found in hotel, not caring for self, requiring treatment for dehydration)...Upon inquiry she reports ?Im doing fine.?? Hospital course: isolating refusing meds, vitals; not bathing or grooming outpt prescriber SIRENA Allen last prescribed Depakote 750mg; haldol 0.5mg BID); tried to call but could not get through -SW talked w/ [facility] staff who said on Haldol Dec, patient had tremors. PLAN PT ON CV q15min checks -for now continue haldol 2mg po BID (pt refusing); may need to switch med due to side-effect but currently refuses Will need to evaluate need for commitment and Raman. Obtain further data regarding ability to care for herself in the community Greater than 50% of the session was spent on counseling and/or coordination of care Reason for contiued inpatient stay Substantial Risk for: rapid decompensation and med/psych decompensation
--- NOTE | 2021-09-06 10:29 | P.PNPSI_ITS ---
Subjective Subjective Date of Service: 09/06/21 Reason For Visit: schizophrenia Interim History: Patient sent down next to telegraphic typewriter mechanic who was casually talking with another patient. She asked to be called Manish. Patient was more pleasant with telegraphic typewriter mechanic at this time and talked casually. She asked telegraphic typewriter mechanic about his hobbies and patient and telegraphic typewriter mechanic discussed literature. Patient said that she had always wanted to play the guitar but never got around to taking other than basic lessens. Patient said that she did not want to be here at the hospital, that people came to her door, picked the lock and made her come to the hospital. She says she knows who it was who called an knows why they did so, but would not discuss this further. Patient says she does want to go home but that she might not be ready quite yet. She does not answer why she is not ready and clarifies that she could probably go home now but will hang out here for another couple of days. She does not want to take medications; she says that the medications she was taking are not really that helpful anyway and that no medications in the past have been. Conversation was politely concluded and patient wished telegraphic typewriter mechanic a nice day. Mental Status Exam Mental Status Exam Narrative: ?Patient Appearance:?Disheveled; poor hygiene Patient Orientation:?Person and Place Level of Consciousness:?Awake Patient Behavior: friendly today with telegraphic typewriter mechanic but overall remains?Guarded, suspicious; Poor Eye Contact Mood Description:?Anxious and irritable Affect Description:?Constricted Ability to Follow Directions:?fair Speech Pattern:?Normal rate, volume and prosody; not pressured; clear Thought process: goal oriented Thought Content: paranoid; denies SI/HI Perception: too guarded to evaluate for AVH Psychomotor agitation/retardation: none Judgment and Insight:?Impaired; Patient refusing medication cannot really explain saying she does not needed anymore; not bathing Diagnostics Vital Signs (24Hr): Body Mass Index 32.3 Labs Results: 08/31/21 18:02 08/31/21 18:02 Medications Medications Current Medications Acetaminophen (Acetaminophen 325 Mg Tablet) 650 mg PO Q6H PRN PRN Reason: Headache/Pain Mild Scale (1-3) Al Hydroxide/Mg Hydroxide (Magnesium Hydrox/Alum Hydrox 30 Ml Oral.Susp) 30 ml PO Q6H PRN PRN Reason: Heartburn/Nausea Haloperidol (Haloperidol 1 Mg Tablet) 2 mg PO BID [facility] Last Admin: 09/05/21 20:46 Dose: Not Given Documented by: Hydroxyzine HCl (Hydroxyzine Hcl 25 Mg Tablet) 25 mg PO BEDTIME PRN PRN Reason: Anxiety Ibuprofen (Ibuprofen 400 Mg Tablet) 400 mg PO Q6H PRN PRN Reason: tooth pain Lorazepam (Lorazepam 1 Mg Tablet) 1 mg PO Q4H PRN PRN Reason: insomnia/anxiety Magnesium Hydroxide (Milk Of Magnesia 30 Ml Oral.Susp) 30 ml PO DAILY PRN PRN Reason: Constipation Olanzapine (Olanzapine 5 Mg Tablet) 5 mg PO Q4H PRN PRN Reason: agitation Pharmacy Consult (Consult Rx Perform Med Rec) 1 each MISCELLANE ONCE PRN PRN Reason: Consult order Propranolol HCl (Propranolol Hcl 20 Mg Tablet) 20 mg PO TID [facility]; Protocol Last Admin: 09/05/21 20:47 Dose: Not Given Documented by: Trazodone HCl (Trazodone Hcl 50 Mg Tablet) 50 mg PO BEDTIME PRN PRN Reason: Insomnia Allergies Allergies Allergy/AdvReac Type Severity Reaction Status Date / Time No Known Allergies Allergy Unverified 08/05/20 17:11 [No Known Allergies*] Assessment & Plan Assessment & Plan (1) Schizoaffective disorder, bipolar type: Status: Acute Code(s): F25.0 - Schizoaffective disorder, bipolar type Assessment and Plan: Ms. Carvajal is a 65 year-old woman with hx of schizoaffective disorder who was brought to [facility] via EMS after sister called 911 as pt presented increasingly more paranoid, disorganized and unable to care for self (not eating well, not following with appointments which she regularly does), not taking meds (history of similar behaviors, missing for days, found in hotel, not caring for self, requiring treatment for dehydration)...Upon inquiry she reports ?Im doing fine.?? Hospital course: isolating refusing meds, vitals; not bathing or grooming outpt prescriber SIRENA Allen last prescribed Depakote 750mg; haldol 0.5mg BID); tried to call but could not get through -SW talked w/ [facility] staff who said on Haldol Dec, patient had tremors. PLAN PT ON CV q15min checks -for now continue haldol 2mg po BID (pt refusing); may need to switch med due to side-effect but currently refuses Will need to evaluate need for commitment and Raman. -will seek to Obtain further data regarding ability to care for herself in the community Greater than 50% of the session was spent on counseling and/or coordination of care Reason for contiued inpatient stay Substantial Risk for: inability to function and med/psych decompensation
--- NOTE | 2021-09-07 10:23 | P.PNPSI_ITS ---
Subjective Subjective Date of Service: 09/07/21 Reason For Visit: schizophrenia Interim History: pt seen on 09/07/21 pt irritable; lying in bed. On approach, pt looked at justowriter operator and said, you did something bad...you did didn't you?...you did something bad...get out of here...i don't want to talk to you. Patient refused to talk further despite attempts to engage. Mental Status Exam Mental Status Exam Narrative: Patient Appearance:?Disheveled; poor hygiene Patient Orientation:?Person and Place Level of Consciousness:?Awake Patient Behavior: uncooperative, angry, Guarded, suspicious; Poor Eye Contact Mood Description:?Anxious and irritable Affect Description:?Constricted Ability to Follow Directions:?fair Speech Pattern:?Normal rate, volume and prosody; not pressured; clear Thought process: goal oriented Thought Content: paranoid; denies SI/HI Perception: too guarded to evaluate for AVH Psychomotor agitation/retardation: none Judgment and Insight:?Impaired; Patient refusing medication; says it's not helpful; not bathing Diagnostics Vital Signs (24Hr): Body Mass Index 32.3 Labs Results: 08/31/21 18:02 08/31/21 18:02 Medications Medications Current Medications Acetaminophen (Acetaminophen 325 Mg Tablet) 650 mg PO Q6H PRN PRN Reason: Headache/Pain Mild Scale (1-3) Al Hydroxide/Mg Hydroxide (Magnesium Hydrox/Alum Hydrox 30 Ml Oral.Susp) 30 ml PO Q6H PRN PRN Reason: Heartburn/Nausea Haloperidol (Haloperidol 1 Mg Tablet) 2 mg PO BID [facility] Last Admin: 09/06/21 21:39 Dose: Not Given Documented by: Hydroxyzine HCl (Hydroxyzine Hcl 25 Mg Tablet) 25 mg PO BEDTIME PRN PRN Reason: Anxiety Ibuprofen (Ibuprofen 400 Mg Tablet) 400 mg PO Q6H PRN PRN Reason: tooth pain Lorazepam (Lorazepam 1 Mg Tablet) 1 mg PO Q4H PRN PRN Reason: insomnia/anxiety Magnesium Hydroxide (Milk Of Magnesia 30 Ml Oral.Susp) 30 ml PO DAILY PRN PRN Reason: Constipation Olanzapine (Olanzapine 5 Mg Tablet) 5 mg PO Q4H PRN PRN Reason: agitation Pharmacy Consult (Consult Rx Perform Med Rec) 1 each MISCELLANE ONCE PRN PRN Reason: Consult order Propranolol HCl (Propranolol Hcl 20 Mg Tablet) 20 mg PO TID [facility]; Protocol Last Admin: 09/06/21 21:39 Dose: Not Given Documented by: Trazodone HCl (Trazodone Hcl 50 Mg Tablet) 50 mg PO BEDTIME PRN PRN Reason: Insomnia Allergies Allergies Allergy/AdvReac Type Severity Reaction Status Date / Time No Known Allergies Allergy Unverified 08/05/20 17:11 [No Known Allergies*] Assessment & Plan Assessment & Plan (1) Schizoaffective disorder, bipolar type: Status: Acute Code(s): F25.0 - Schizoaffective disorder, bipolar type Assessment and Plan: Ms. Carvajal is a 65 year-old woman with hx of schizoaffective disorder who was brought to [facility] via EMS after sister called 911 as pt presented increasingly more paranoid, disorganized and unable to care for self (not eating well, not following with appointments which she regularly does), not taking meds (history of similar behaviors, missing for days, found in hotel, not caring for self, requiring treatment for dehydration)...Upon inquiry she reports ?Im doing fine.?? Hospital course: isolating refusing meds, vitals; not bathing or grooming outpt prescriber SIRENA Allen last prescribed Depakote 750mg; haldol 0.5mg BID); tried to call but could not get through -SW talked w/ [facility] staff who said on Haldol Dec, patient had tremors. -justowriter operator spoke with patient's sister Carol; justowriter operator did not disclose any information and only collected information. Sister said patient seemed a little off when they met for lunch. The next day patient called her sister and said the police came and busted the door, but when sister's went to fix the door said it was fine. The next day sister went to visit patient who refused to open the door. Through the door patient said it was nighttime even though it was day; patient then said you are not on the porch even though sister was standing there saying she was on the porch. Crisis was called; a brown was available and door was unlocked and patient taken to the emergency room. Sister says patient has been off medications for a little while not sure how long. Sister and family are worried because last year when patient was off her medication she went into hiding and was found several days later living in a hotel; the year before she drank an excessive amount of water to cleanse herself, causing electrolyte imbalance. Patient's therapist talked to web content & social media manager and said that she had developed a mild tremor on Haldol however on Haldol patient did her best. She was recently switched to Risperdal though it does not seem she took any. PLAN PT ON CV q15min checks -for now continue haldol 2mg po BID (pt refusing); may need to switch med due to side-effect but currently refuses Will need to evaluate need for commitment and Raman. -will seek to Obtain further data regarding ability to care for herself in the community I spent minutes with the patient and/or on the patient floor today, greater than?50% of which was spent counseling/coordinating care. Reason for contiued inpatient stay Substantial Risk for: med/psych decompensation
--- NOTE | 2021-09-07 12:27 | PC.NURSE ---
pt refused all meds and for blood pressure to be taken
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
[2021-09-08 18:00] VITALS: BP 144/84; PULSE 107
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
--- NOTE | 2021-09-10 19:07 | P.PNPSI_ITS ---
Subjective Subjective Date of Service: 09/10/21 Reason For Visit: schizophrenia Subjective Notes: Conditional Voluntary Interim History: Nusrat was angry and dismissive. She states that she is tired of people intruding and she wants to be left alone She continues to refuse treatment Medication Compliance: Yes Side effects from medications: No Attending Groups: No Review of Systems Acute medical concerns: No Mental Status Exam Mental Status Exam Narrative: Patient Appearance:?Disheveled; poor hygiene Patient Orientation:?Person and Place Level of Consciousness:?Awake Patient Behavior: uncooperative, angry, Guarded, suspicious; Poor or intense Eye Contact Mood Description: irritable Affect Description:?Constricted Ability to Follow Directions:?fair Speech Pattern:?Normal rate, volume and prosody; not pressured; clear Thought process: goal oriented Thought Content: paranoid; denies SI/HI Perception: denies AVH Psychomotor agitation/retardation: none Judgment and Insight:?Impaired; Patient refusing medication; says it's not helpful; not bathing Diagnostics Vital Signs (24Hr): Body Mass Index 32.3 Labs Results: 08/31/21 18:02 08/31/21 18:02 Medications Medications Current Medications Acetaminophen (Acetaminophen 325 Mg Tablet) 650 mg PO Q6H PRN PRN Reason: Headache/Pain Mild Scale (1-3) Al Hydroxide/Mg Hydroxide (Magnesium Hydrox/Alum Hydrox 30 Ml Oral.Susp) 30 ml PO Q6H PRN PRN Reason: Heartburn/Nausea Haloperidol (Haloperidol 1 Mg Tablet) 2 mg PO BID [facility] Last Admin: 09/10/21 09:13 Dose: Not Given Documented by: Hydroxyzine HCl (Hydroxyzine Hcl 25 Mg Tablet) 25 mg PO BEDTIME PRN PRN Reason: Anxiety Ibuprofen (Ibuprofen 400 Mg Tablet) 400 mg PO Q6H PRN PRN Reason: tooth pain Lorazepam (Lorazepam 1 Mg Tablet) 1 mg PO Q4H PRN PRN Reason: insomnia/anxiety Magnesium Hydroxide (Milk Of Magnesia 30 Ml Oral.Susp) 30 ml PO DAILY PRN PRN Reason: Constipation Olanzapine (Olanzapine 5 Mg Tablet) 5 mg PO Q4H PRN PRN Reason: agitation Pharmacy Consult (Consult Rx Perform Med Rec) 1 each MISCELLANE ONCE PRN PRN Reason: Consult order Propranolol HCl (Propranolol Hcl 20 Mg Tablet) 20 mg PO TID [facility]; Protocol Last Admin: 09/10/21 16:43 Dose: Not Given Documented by: Trazodone HCl (Trazodone Hcl 50 Mg Tablet) 50 mg PO BEDTIME PRN PRN Reason: Insomnia Allergies Allergies Allergy/AdvReac Type Severity Reaction Status Date / Time No Known Allergies Allergy Unverified 08/05/20 17:11 [No Known Allergies*] Assessment & Plan Assessment & Plan (1) Schizoaffective disorder, bipolar type: Status: Acute Code(s): F25.0 - Schizoaffective disorder, bipolar type Assessment and Plan: IMPRESSION: Ms. Carvajal is a 65 year-old woman with hx of schizoaffective disorder who was brought to [facility] via EMS after sister called 911 as pt presented increasingly more paranoid, disorganized and unable to care for self (not eating well, not following with appointments which she regularly does), not taking meds (history of similar behaviors, missing for days, found in hotel, not caring for self, req uiring treatment for dehydration)...Limited insight. Hospital course: isolating refusing meds, vitals; not bathing or grooming outpt prescriber SIRENA Allen last prescribed Depakote 750mg; haldol 0.5mg BID); tried to call but could not get through -SW talked w/ [facility] staff who said on Haldol Dec, patient had tremors. -loan underwriter spoke with patient's sister Carol; loan underwriter did not disclose any in formation and only collected information. Sister said patient seemed a little off when they met for lunch. The next day patient called her sister and said the police came and busted the door, but when sister's went to fix the door said it was fine. The next day sister went to visit patient who refused to open the door. Through the door patient said it was nighttime even though it was day; patient then said you are not on the porch even though sister was standing there saying she was on the porch. Crisis was called; a brown was available and door was unlocked and patient taken to the emergency room. Sister says patient has been off medications for a little while not sure how long. Sister and family are worried because last year when patient was off her medication she went into hiding and was found several days later living in a hotel; the year before she drank an excessive amount of water to cleanse herself, causing electrolyte imbalance. Patient's therapist talked to child welfare social worker and said that she had developed a mild tremor on Haldol however on Haldol patient did her best. She was recently switched to Risperdal though it does not seem she took any. Patient is disorganized in speech and behavior, but when caught at the right moment, can think in organized way. patient was able to have an organized and linear discussion regarding her life at home.? She explained that she goes shopping by driving to the grocery store; she said she has been going there for years and knows where everything is.? She says she enjoys it.? She prefers to pay her bills by check since she is not familiar with online banking.? Patient explained that money from social security is deposited into her account.? Courtesy Car Driver discussed medications and patient says she does not need or want them.? She said she was on Haldol in the past and that at that time she had schizoaffective disorder and found that the Haldol helped her.? However she reports she got tardive dyskinesia from it and also that she had a hand tremor, primarily her right hand.? She does not think she has schizoaffective disorder anymore and no longer needs medications.? Regarding her family's opinion on the matter she says that her family has some messed up thinking.? They always want to commit her.? She says no matter what she does, they always say commit commit commit...? Courtesy Car Driver asked what she thinks of this ad mission.? She said at 1st she came against her will, but now she is making the best of it and she thinks it is helpful.? However she is unable to say what is helpful about other than it is nice to be around people.? When talking about discharge she reiterates that cars are not driving right now.? Courtesy Car Driver attempted to explain that most people come to the inpatient unit who need and want treatment, frequently with medications and she is not interested in either.? Courtesy Car Driver discussed perhaps discharge home but patient did not answer and just looked at.? She then he eventually agreed to consider it. PLAN: -Currently patient is on a CV.? She is able to clearly explain how she takes care of herself in the community.? However she can also be quite disorganized speech and behavior.? Currently it seems that patient is unable to understand this admission or the discharge process; this remains true she may be too disorganized to discharge.? Will continue to evaluate. PT ON CV q15min checks -for now continue haldol 2mg po BID (pt refusing); may need to switch med due to side-effect but currently refuses Will need to evaluate need for commitment and Raman. -will seek to Obtain further data regarding ability to care for herself in the community No change to the above plan I spent minutes with the patient and/or on the patient floor today, greater than?50% of which was spent counseling/coordinating care. Patient educated on: medication risk/benefits Informed Consent: does not understand Reason for contiued inpatient stay Substantial Risk for: rapid decompensation
--- NOTE | 2021-09-11 19:01 | P.PNPSI_ITS ---
Subjective Subjective Date of Service: 09/11/21 Reason For Visit: schizophrenia Subjective Notes: 3 Day Interim History: Nusrat has remained angry and resistant to care. She has not bathed and she hoards food in her room, Ants have been crawling on this. She becomes angry and belligerent when attempts are made to help her with ADLs or to discuss treatment. She refuses everything Medication Compliance: No Attending Groups: No Review of Systems Acute medical concerns: No Mental Status Exam Mental Status Exam Narrative: Patient Appearance:?Disheveled; poor hygiene Patient Orientation:?Person and Place Level of Consciousness:?Awake Patient Behavior: uncooperative, angry, Guarded, suspicious; Poor or intense Eye Contact Mood Description: irritable Affect Description:?Constricted Ability to Follow Directions:?fair Speech Pattern:?Normal rate, volume and prosody; not pressured; clear Thought process: goal oriented Thought Content: paranoid; denies SI/HI Perception: denies AVH Psychomotor agitation/retardation: none Judgment and Insight:?Impaired; Patient refusing medication; says it's not helpful; not bathing Diagnostics Vital Signs (24Hr): Body Mass Index 32.3 Labs Results: 08/31/21 18:02 08/31/21 18:02 Medications Medications Current Medications Acetaminophen (Acetaminophen 325 Mg Tablet) 650 mg PO Q6H PRN PRN Reason: Headache/Pain Mild Scale (1-3) Al Hydroxide/Mg Hydroxide (Magnesium Hydrox/Alum Hydrox 30 Ml Oral.Susp) 30 ml PO Q6H PRN PRN Reason: Heartburn/Nausea Haloperidol (Haloperidol 1 Mg Tablet) 2 mg PO BID [facility] Last Admin: 09/11/21 08:19 Dose: Not Given Documented by: Hydroxyzine HCl (Hydroxyzine Hcl 25 Mg Tablet) 25 mg PO BEDTIME PRN PRN Reason: Anxiety Ibuprofen (Ibuprofen 400 Mg Tablet) 400 mg PO Q6H PRN PRN Reason: tooth pain Lorazepam (Lorazepam 1 Mg Tablet) 1 mg PO Q4H PRN PRN Reason: insomnia/anxiety Magnesium Hydroxide (Milk Of Magnesia 30 Ml Oral.Susp) 30 ml PO DAILY PRN PRN Reason: Constipation Olanzapine (Olanzapine 5 Mg Tablet) 5 mg PO Q4H PRN PRN Reason: agitation Pharmacy Consult (Consult Rx Perform Med Rec) 1 each MISCELLANE ONCE PRN PRN Reason: Consult order Propranolol HCl (Propranolol Hcl 20 Mg Tablet) 20 mg PO TID [facility]; Protocol Last Admin: 09/11/21 16:25 Dose: Not Given Documented by: Trazodone HCl (Trazodone Hcl 50 Mg Tablet) 50 mg PO BEDTIME PRN PRN Reason: Insomnia Allergies Allergies Allergy/AdvReac Type Severity Reaction Status Date / Time No Known Allergies Allergy Unverified 08/05/20 17:11 [No Known Allergies*] Assessment & Plan Assessment & Plan (1) Schizoaffective disorder, bipolar type: Status: Acute Code(s): F25.0 - Schizoaffective disorder, bipolar type Assessment and Plan: IMPRESSION: Ms. Carvajal is a 65 year-old woman with hx of schizoaffective disorder who was brought [place] [facility] [place] after sister called 911 as pt presented increasingly more paranoid, disorganized and unable to care for self (not eating well, not following with appointments which she regularly does), not taking meds (history of similar behaviors, missing for days, found in hotel, not caring for self, requiring treatment for dehydration)...Limited insight. Hospital course: isolating refusing meds, vitals; not bathing or grooming outpt prescriber SIRENA Allen last prescribed Depakote 750mg; haldol 0.5mg BID); tried to call but could not get through -SW talked / [facility] staff who said on Haldol Dec, patient had tremors. -copywriter spoke with patient's sister Carol; copywriter did not disclose any information and only collected information. Sister said patient seemed a little off when they met for lunch. The next day patient called her sister and said the police came and busted the door, but when sister's went to fix the door said it was fine. The next day sister went to visit patient who refused to open the door. Through the door patient said it was nighttime even though it was day; patient then said you are not on the porch even though sister was standing there saying she was on the porch. Crisis was called; a brown was available and door was unlocked and patient taken to the emergency room. Sister says patient has been off medications for a little while not sure how long. Sister and family are worried because last year when patient was off her medication she went into hiding and was found several days later living in a hotel; the year before she drank an excessive amount of water to cleanse herself, causing electrolyte imbalance. Patient's therapist talked to geriatric social worker and said that she had developed a mild tremor on Haldol however on Haldol patient did her best. She was recently switched to Risperdal though it does not seem she took any. Patient is disorganized in speech and behavior, but when caught at the right moment, can think in organized way. patient was able to have an organized and linear discussion regarding her life at home.? She explained that she goes shopping by driving to the grocery store; she said she has been going there for years and knows where everything is.? She says she enjoys it.? She prefers to pay her bills by check since she is not familiar with [employer] banking.? Patient explained that money from social security is deposited into her account.? Editor Magazine discussed medications and patient says she does not need or want them.? She said she was on Haldol in the past and that at that time she had schizoaffective disorder and found that the Haldol helped her.? However she reports she got tardive dyskinesia from it and also that she had a hand tremor, primarily her right hand.? She does not think she has schizoaffective disorder anymore and no longer needs medications.? Regarding her family's opinion on the matter she says that her family has some messed up thinking.? They always want to commit her.? She says no matter what she does, they always say commit commit commit...? Editor Magazine asked what she thinks of this admission.? She said at 1st she came against her will, but now she is making the best of it and she thinks it is helpful.? However she is unable to say what is helpful about other than it is nice to be around people.? When talking about discharge she reiterates that cars are not driving right now.? Editor Magazine attempted to explain that most people come to the inpatient unit who need and want treatment, frequently with medications and she is not interested in either.? Editor Magazine discussed perhaps discharge home but patient did not answer and just looked at.? She then he eventually agreed to consider it. PLAN: -Currently patient is on a CV.? She is able to clearly explain how she takes care of herself in the community.? However she can also be quite disorganized speech and behavior.? Currently it seems that patient is unable to understand this admission or the discharge process; this remains true she may be too disorganized to discharge.? Will continue to evaluate. PT ON CV q15min checks -for now continue haldol 2mg po BID (pt refusing); may need to switch med due to side-effect but currently refuses Will need to evaluate need for commitment and Raman. -will seek to Obtain further data regarding ability to care for herself in the community 09/10/21: No change to the above plan 09/11/21: remains belligerent and unable to see need or care. Recommend petition for treatment. I spent minutes with the patient and/or on the patient floor today, greater than?50% of which was spent counseling/coordinating care. Patient educated on: diagnosis Informed Consent: does not understand Reason for contiued inpatient stay Substantial Risk for: rapid decompensation
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
--- NOTE | 2021-09-13 05:22 | PC.NURSE ---
Patient is awake sitting up at the foot of her bed staring at the wall for a period of time. She comes out to the Kitchen at 5am and has a snack. Patient sits in Kitchen alone smiling to herself, she appears pre-occupied. When asked about sleep, she states, Me and Mary have been sleeping well. We always sleep well. Mary is my Spiritual partner... Mary has both male and female parts. She has a small penis and a vagina. Mary lives in [place]. I haven't seen her in 3 years. Patient goes on to ask this property underwriter about their eyeglasses and eye sight and reports having had cataract surgery. Patient continues to sit up in Kitchen.
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
--- NOTE | 2021-09-15 09:44 | P.PNPSI_ITS ---
Subjective Subjective Date of Service: 09/15/21 Reason For Visit: schizophrenia Interim History: Patient refused to engage with mortgage or loan underwriter. Patient says near did mortgage or loan underwriter said what do you want? Go way... I am not talking to you. Patient's roommate had to change rooms last night since patient was standing over her roommate's bed staring at her while she slept, making her very uncomfortable. Staff reports patient did not sleep last night and continues to refuse medications and vitals; no attention to ADLs and malodorous Mental Status Exam Mental Status Exam Narrative: Patient Appearance:?Disheveled; poor hygiene Patient Orientation:?Person and Place; not time, not situation Level of Consciousness:?Awake Patient Behavior: mostly uncooperative, irritable, Guarded and suspicious; Poor or intense Eye Contact; Mood Description: irritable Affect Description:?Constricted Ability to Follow Directions:?poor Speech Pattern:?Normal rate, volume and prosody; not pressured Thought process: goal oriented but concrete; disorganized as well Thought Content: paranoid; denies SI/HI Perception: AH Psychomotor agitation/retardation: none Judgment and Insight:?Impaired Diagnostics Vital Signs (24Hr): Body Mass Index 32.3 Labs Results: 08/31/21 18:02 08/31/21 18:02 Medications Medications Current Medications Acetaminophen (Acetaminophen 325 Mg Tablet) 650 mg PO Q6H PRN PRN Reason: Headache/Pain Mild Scale (1-3) Al Hydroxide/Mg Hydroxide (Magnesium Hydrox/Alum Hydrox 30 Ml Oral.Susp) 30 ml PO Q6H PRN PRN Reason: Heartburn/Nausea Haloperidol (Haloperidol 1 Mg Tablet) 2 mg PO BID [facility] Last Admin: 09/14/21 20:10 Dose: Not Given Documented by: Hydroxyzine HCl (Hydroxyzine Hcl 25 Mg Tablet) 25 mg PO BEDTIME PRN PRN Reason: Anxiety Ibuprofen (Ibuprofen 400 Mg Tablet) 400 mg PO Q6H PRN PRN Reason: tooth pain Magnesium Hydroxide (Milk Of Magnesia 30 Ml Oral.Susp) 30 ml PO DAILY PRN PRN Reason: Constipation Olanzapine (Olanzapine 5 Mg Tablet) 5 mg PO Q4H PRN PRN Reason: agitation Pharmacy Consult (Consult Rx Perform Med Rec) 1 each MISCELLANE ONCE PRN PRN Reason: Consult order Propranolol HCl (Propranolol Hcl 20 Mg Tablet) 20 mg PO TID [facility]; Protocol Last Admin: 09/14/21 20:09 Dose: Not Given Documented by: Trazodone HCl (Trazodone Hcl 50 Mg Tablet) 50 mg PO BEDTIME PRN PRN Reason: Insomnia Allergies Allergies Allergy/AdvReac Type Severity Reaction Status Date / Time No Known Allergies Allergy Unverified 08/05/20 17:11 [No Known Allergies*] Assessment & Plan Assessment & Plan (1) Schizoaffective disorder, bipolar type: Status: Acute Code(s): F25.0 - Schizoaffective disorder, bipolar type Assessment and Plan: IMPRESSION: Ms. Carvajal is a 65 year-old woman with hx of schizoaffective disorder who was brought to [facility] via EMS after sister called 911 as pt presented increasingly more paranoid, disorganized and unable to care for self (not eating well, not following with appointments which she regularly does), not taking meds (history of similar behaviors, missing for days, found in hotel, not caring for self, requiring treatment for dehydration)...Limited insight. Hospital course: isolating refusing meds, vitals; not bathing or grooming outpt prescriber SIRENA Allen last prescribed Depakote 750mg; haldol 0.5mg BID); tried to call but could not get through -SW talked w/ [facility] staff who said on Haldol Dec, patient had tremors. -mortgage or loan underwriter spoke with patient's sister Carol; mortgage or loan underwriter did not disclose any information and only collected information. Sister said patient seemed a little off when they met for lunch. The next day patient called her sister and said the police came and busted the door, but when sister's went to fix the door said it was fine. The next day sister went to visit patient who refused to open the door. Through the door patient said it was nighttime even though it was day; patient then said you are not on the porch even though sister was standing there saying she was on the porch. Crisis was called; a brown was available and door was unlocked and patient taken to the emergency room. Sister says patient has been off medications for a little while not sure how long. Sister and family are worried because last year when patient was off her medication she went into hiding and was found several days later living in a hotel; the year before she drank an excessive amount of water to cleanse h erself, causing electrolyte imbalance. Patient's therapist talked to manager social and said that she had developed a mild tremor on Haldol however on Haldol patient did her best. She was recently switched to Risperdal though it does not seem she took any. on 09/08 Patient is disorganized in speech and behavior, but when caught at the right moment, can think in organized way. patient was able to have an organized and linear discussion regarding her life at home.? She explained that she goes shopping by driving to the grocery store; she said she has been going there for years and knows where everything is.? She says she enjoys it.? She prefers to pay her bills by check since she is not familiar with online banking.? Patient explained that money from social security is deposited into her account.? Turning Machine Operator Helper discussed medications and patient says she does not need or want them.? She said she was on Haldol in the past and that at that time she had schizoaffective disorder and found that the Haldol helped her.? However she reports she got tardive dyskinesia from it and also that she had a hand tremor, primarily her right hand.? She does not think she has schizoaffective disorder anymore and no longer needs medications.? Regarding her family's opinion on the matter she says that her family has some messed up thinking.? They always want to commit her.? She says no matter what she does, they always say commit commit commit...? Turning Machine Operator Helper asked what she thinks of this admission.? She said at 1st she came against her will, but now she is making the best of it and she thinks it is helpful.? However she is unable to say what is helpful about other than it is nice to be around people.? When talking about discharge she reiterates that cars are not driving right now.? Turning Machine Operator Helper attempted to explain that most people come to the inpatient unit who need and want treatment, frequently with medications and she is not interested in either.? Turning Machine Operator Helper discussed perhaps discharge home but patient did not answer and just looked mortgage or loan underwriter. Since 09/08- patient has become increasingly difficult to engage. She has continued to refuse medication treatment, including vitals. Patient has no insight at all. She does not understand why she is on the unit and she does not believe she is psychiatrically ill (she says she used to have schizoaffective disorder but that she no longer does and thus does not need medication). Due to her psychotic illness she is unable to engage in therapy sessions or attend groups. While she has had moments of goal oriented thinking, she is overall too disorganized to discuss discharge home or have any meaningful discussion about it at all. She refuses to bathe and is malodorous, she is disorganized in speech and behavior and Patient is psychotic illness remains a barrier to treatment and she was thus both refusing and unable to engage in discussion about her treatment or discharge, refusing both. PLAN: -Currently patient is on a CV.? She is able to clearly explain how she takes care of herself in the community.? However she can also be quite disorganized speech and behavior.? Currently it seems that patient is unable to understand this admission or the discharge process; this remains true she may be too disorganized to discharge.? Will continue to evaluate. PT ON CV q15min checks -for now continue haldol 2mg po BID (pt refusing); may need to switch med due to side-effect but currently refuses Will need to evaluate need for commitment and Raman. -will seek to Obtain further data regarding ability to care for herself in the community 09/10/21: No change to the above plan 09/11/21: remains belligerent and unable to see need or care. Recommend petition for treatment. 09/12: pt continues to decline medications, thinks food is poisons, not showering malodorous, suspicious, talking to Gissel hears this voice. Cap gras delusions in that pt thinks this mortgage or loan underwriter is not Genny, but Tianna, and does not think Dr. Abdul is a doctor but business developer in [place]. I spent minutes with the patient and/or on the patient floor today, greater than?50% of which was spent counseling/coordinating care. Reason for contiued inpatient stay Substantial Risk for: inability to function
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
[2021-09-16] MEDS: Milk of Magnesia 30 ML ORAL.SUSP PO (23:48)
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
--- NOTE | 2021-09-20 13:03 | PC.NURSE ---
pt continues to refuse all care, no vital signs taken
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
--- NOTE | 2021-09-21 12:29 | PC.NURSE ---
Pt continues to refuse care, refuses VS
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
[2021-09-25] MEDS: Magnesium Hydrox/Alum Hydrox 30 ML ORAL.SUSP PO (08:43)
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
[2021-09-29 07:00] VITALS: BMI 37.6
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
[2021-09-30] MEDS: OLANZapine 10 MG VIAL 5 MG IM (18:10)
[2021-10-01] MEDS: OLANZapine 10 MG VIAL 5 MG IM (09:20)
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
[2021-10-02] MEDS: OLANZapine 10 MG VIAL 5 MG IM ×3 (08:55→09:02)
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
[2021-10-03] MEDS: OLANZapine 10 MG VIAL 5 MG IM (08:48)
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
[2021-10-04] MEDS: OLANZapine ODT 10 MG TAB.RAPDIS TRANSLINGU (10:33)
--- NOTE | 2021-10-04 10:37 | PC.NURSE ---
refused BP to be taken and Propanolol
[2021-10-04 12:00] VITALS: BP 105/66; PULSE 101
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
[2021-10-04] MEDS: Milk of Magnesia 30 ML ORAL.SUSP PO (19:51)
[2021-10-04] MEDS: traZODone HCL 50 MG TABLET PO ×2 (20:18→23:09)
[2021-10-05] MEDS: OLANZapine ODT 10 MG TAB.RAPDIS TRANSLINGU (09:25)
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
[2021-10-05] MEDS: OLANZapine ODT 10 MG TAB.RAPDIS 5 MG TRANSLINGU (22:05)
[2021-10-06] MEDS: OLANZapine ODT 10 MG TAB.RAPDIS 5 MG TRANSLINGU (08:03)
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
[2021-10-06] MEDS: OLANZapine ODT 10 MG TAB.RAPDIS TRANSLINGU (21:39)
[2021-10-07] MEDS: traZODone HCL 50 MG TABLET PO ×2 (02:50→22:40)
[2021-10-07] MEDS: hydrOXYzine HCL 25 MG TABLET PO (02:50)
--- NOTE | 2021-10-07 03:03 | PC.NURSE ---
Patient is awake and yelling loudly from 1:30am on. Patient is finally agreeable to taking PRN medication. She takes PRN Trazodone and Hydroxyzine.
[2021-10-07] MEDS: OLANZapine ODT 10 MG TAB.RAPDIS 5 MG TRANSLINGU ×2 (07:57→08:40)
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
--- NOTE | 2021-10-07 11:02 | PC.NURSE ---
pt encouraged strongly by this race and sports book writer to shower. she did not yell back at me saying no but rather politely declined at this time. maybe later'.
--- NOTE | 2021-10-07 14:38 | PC.NURSE ---
pt was agrily walking down the hallway. when asked why she seemed so upset, she stated her father was swirling aroung the toilet that they are comin g to get it thats why she has to use the toilet down the hallway. her sister is scooped up to erica and she turned towards the wall and stated erica come and take her away as well. referring to this designer/writer and i stated i would give her space but again but offered a showered. stated she wanted to know if i want to happen to her what happened to her sister... then stated nevermind and walked away.
[2021-10-07 22:37] VITALS: BP 131/72; PULSE 100
[2021-10-07] MEDS: Propranolol HCL 20 MG TABLET PO (22:37)
[2021-10-07] MEDS: OLANZapine ODT 10 MG TAB.RAPDIS TRANSLINGU (22:39)
[2021-10-08] MEDS: Magnesium Hydrox/Alum Hydrox 30 ML ORAL.SUSP PO (05:40)
[2021-10-08 06:00] VITALS: BP 146/70; PULSE 77; TEMP 36.1; O2SAT 94
[2021-10-08 09:00] VITALS: BP 146/70; PULSE 77
[2021-10-08] MEDS: Propranolol HCL 20 MG TABLET PO ×2 (09:00→20:19)
[2021-10-08] MEDS: OLANZapine ODT 10 MG TAB.RAPDIS 5 MG TRANSLINGU (09:00)
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
[2021-10-08 20:19] VITALS: BP 141/80; PULSE 92
[2021-10-08] MEDS: hydrOXYzine HCL 25 MG TABLET PO (20:20)
[2021-10-08] MEDS: traZODone HCL 50 MG TABLET PO (20:20)
[2021-10-08] MEDS: OLANZapine ODT 10 MG TAB.RAPDIS TRANSLINGU (20:21)
[2021-10-09] MEDS: OLANZapine ODT 10 MG TAB.RAPDIS 5 MG TRANSLINGU (08:42)
[2021-10-09 18:00] VITALS: BP 158/74; PULSE 104; TEMP 36.1; O2SAT 94
[2021-10-09] MEDS: traZODone HCL 50 MG TABLET PO (21:09)
[2021-10-09] MEDS: OLANZapine ODT 10 MG TAB.RAPDIS TRANSLINGU (21:09)
[2021-10-09 21:13] VITALS: BP 158/74; PULSE 104
[2021-10-09] MEDS: Propranolol HCL 20 MG TABLET PO (21:13)
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
[2021-10-10] MEDS: OLANZapine ODT 10 MG TAB.RAPDIS 5 MG TRANSLINGU (09:17)
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
[2021-10-10 18:00] VITALS: BP 126/81; PULSE 100; RESP 18; TEMP 36.9; O2SAT 94
[2021-10-10] MEDS: OLANZapine ODT 10 MG TAB.RAPDIS 15 MG TRANSLINGU (21:10)
[2021-10-10 21:22] VITALS: BP 126/81; PULSE 100
[2021-10-10] MEDS: Propranolol HCL 20 MG TABLET PO (21:22)
[2021-10-11] MEDS: traZODone HCL 50 MG TABLET PO (02:06)
[2021-10-11] MEDS: OLANZapine ODT 10 MG TAB.RAPDIS 5 MG TRANSLINGU (09:06)
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
[2021-10-11] MEDS: OLANZapine ODT 10 MG TAB.RAPDIS 15 MG TRANSLINGU (21:47)
[2021-10-12] MEDS: OLANZapine ODT 10 MG TAB.RAPDIS 5 MG TRANSLINGU (08:45)
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
[2021-10-12] MEDS: OLANZapine ODT 10 MG TAB.RAPDIS 15 MG TRANSLINGU (21:12)
[2021-10-13] MEDS: OLANZapine ODT 10 MG TAB.RAPDIS 5 MG TRANSLINGU (09:12)
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
[2021-10-13] MEDS: Acetaminophen 325 MG TABLET 650 MG PO ×2 (11:53→20:22)
--- NOTE | 2021-10-13 15:00 | PC.NURSE ---
pt refused BP's and anti hypertive
[2021-10-13 17:24] VITALS: RESP 16
[2021-10-13] MEDS: OLANZapine ODT 10 MG TAB.RAPDIS 15 MG TRANSLINGU (20:33)
[2021-10-14] MEDS: OLANZapine ODT 10 MG TAB.RAPDIS 5 MG TRANSLINGU (09:02)
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
[2021-10-14] MEDS: OLANZapine ODT 10 MG TAB.RAPDIS 15 MG TRANSLINGU (21:55)
[2021-10-15] MEDS: traZODone HCL 50 MG TABLET PO (01:08)
[2021-10-15 06:00] VITALS: BP 136/67; PULSE 90; RESP 16; TEMP 36.4; O2SAT 96
[2021-10-15] MEDS: OLANZapine ODT 10 MG TAB.RAPDIS 5 MG TRANSLINGU (08:02)
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
[2021-10-15] MEDS: OLANZapine ODT 10 MG TAB.RAPDIS 20 MG TRANSLINGU (20:08)
[2021-10-16] MEDS: OLANZapine ODT 10 MG TAB.RAPDIS 5 MG TRANSLINGU (08:52)
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
[2021-10-16 17:19] VITALS: RESP 16
[2021-10-16] MEDS: OLANZapine ODT 10 MG TAB.RAPDIS 20 MG TRANSLINGU (20:26)
[2021-10-16] MEDS: traZODone HCL 50 MG TABLET PO (23:00)
[2021-10-17] MEDS: OLANZapine ODT 10 MG TAB.RAPDIS 5 MG TRANSLINGU (08:58)
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
[2021-10-17 17:53] VITALS: BP 130/71; PULSE 96; TEMP 36.3; O2SAT 96
[2021-10-17] MEDS: OLANZapine ODT 10 MG TAB.RAPDIS 25 MG TRANSLINGU (21:35)
[2021-10-17] MEDS: traZODone HCL 50 MG TABLET PO (23:02)
[2021-10-18 06:00] VITALS: RESP 16
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
[2021-10-18] MEDS: OLANZapine ODT 10 MG TAB.RAPDIS 25 MG TRANSLINGU (20:53)
[2021-10-19 06:15] VITALS: BP 133/73; PULSE 98; RESP 17; TEMP 36.3; O2SAT 95
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
[2021-10-19 18:00] VITALS: BP 148/92; PULSE 110; RESP 18; TEMP 36.6; O2SAT 95
[2021-10-19] MEDS: OLANZapine ODT 10 MG TAB.RAPDIS 25 MG TRANSLINGU (20:44)
[2021-10-20 05:00] VITALS: BP 129/73; PULSE 108; O2SAT 94
[2021-10-20 05:02] VITALS: BP 129/73; PULSE 108
[2021-10-20] MEDS: Propranolol HCL 20 MG TABLET PO (05:02)
[2021-10-20 05:18] VITALS: BP 129/73; PULSE 108
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
[2021-10-20] MEDS: Ibuprofen 400 MG TABLET PO (20:55)
[2021-10-20] MEDS: OLANZapine ODT 10 MG TAB.RAPDIS 25 MG TRANSLINGU (21:54)
[2021-10-21 05:40] VITALS: BP 118/80; PULSE 84; RESP 18; TEMP 36.2; O2SAT 95
[2021-10-21] MEDS: Ibuprofen 400 MG TABLET PO (17:51)
[2021-10-21 18:00] VITALS: BP 128/91; PULSE 94; TEMP 36.8
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
[2021-10-21] MEDS: OLANZapine ODT 10 MG TAB.RAPDIS 25 MG TRANSLINGU (20:20)
[2021-10-21] MEDS: traZODone HCL 50 MG TABLET PO (23:37)
[2021-10-22] MEDS: hydrOXYzine HCL 25 MG TABLET PO (00:08)
[2021-10-22] MEDS: Ibuprofen 400 MG TABLET PO ×2 (00:35→20:12)
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
--- NOTE | 2021-10-22 20:08 | PC.NURSE ---
Room sweep was completed for Hygiene. Approximately 10 full cartons of milk were removed from patient's room along with approximately 15 used spoons and straws.
[2021-10-22] MEDS: OLANZapine ODT 10 MG TAB.RAPDIS 25 MG TRANSLINGU (20:12)
[2021-10-22] MEDS: traZODone HCL 50 MG TABLET PO (20:13)
--- NOTE | 2021-10-23 07:14 | PC.NURSE ---
Significant swelling noted to patient's Left side of jaw. Patient refusing vitals at this time. Covering Provider Fadumo Carcamo, notified via [employer].
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
[2021-10-23 16:37] VITALS: TEMP 37.2
[2021-10-23] MEDS: Amoxicillin/Potassium Clav 875 MG TABLET PO (16:50)
[2021-10-23] MEDS: OLANZapine ODT 10 MG TAB.RAPDIS 25 MG TRANSLINGU (20:35)
[2021-10-23 20:37] VITALS: BP 135/74; PULSE 109
[2021-10-23] MEDS: Propranolol HCL 20 MG TABLET PO (20:37)
[2021-10-23] MEDS: Hydrocortisone 2.5 % Rectal Cr 30 GM TUBE 1 APPL PR (22:33)
--- NOTE | 2021-10-24 04:52 | PC.NURSE ---
Pt. Took shower and washed clothes. Room was cleaned. Two Pt. trash cans contained large quantities of vomit - curdled milk. Trash cans removed and cleaned.
[2021-10-24] MEDS: Amoxicillin/Potassium Clav 875 MG TABLET PO ×2 (06:31→16:07)
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
[2021-10-24 21:05] VITALS: BP 146/67; PULSE 105; TEMP 37
[2021-10-24] MEDS: OLANZapine ODT 10 MG TAB.RAPDIS 25 MG TRANSLINGU (22:39)
[2021-10-25] MEDS: Amoxicillin/Potassium Clav 875 MG TABLET PO ×2 (05:44→17:07)
[2021-10-25 05:45] VITALS: TEMP 37.1
[2021-10-25 05:52] VITALS: TEMP 37.1
[2021-10-25 08:18] LABS: MANUAL DIFF FLAG NO
[2021-10-25 08:20] LABS: Basophils Percent Auto 0.3 % (0-2); Eosinophils Absolute Auto 0.3 X10*3/uL (0.0-0.4); Eosinophils Percent Auto 2.9 % (0-4); Hematocrit 37.8 % (37.0-47.0); Hemoglobin 12.5 g/dl (12.0-16.0); Imm Gran Abs Auto 0.06 X10*3/uL (0.00-0.03); Imm Gran Pct Auto 0.5 % (0.0-0.4); Lymphocytes Absolute Auto 1.3 X10*3/uL (1.2-4.9); Lymphocytes Percent Auto 11.2 % (20-40); Mean Corpuscular HGB Conc 33.1 g/dl (31.0-35.0); Mean Corpuscular Hemoglobin 30.2 pg (27.0-33.0); Mean Corpuscular Volume 91.3 fL (80.0-98.0); Mean Platelet Volume 8.6 fL (9.4-12.3); Monocytes Absolute Auto 0.7 X10*3/uL (0.1-1.2); Monocytes Percent Auto 6.1 % (2-11); Neutrophils Absolute Auto 9.1 x10*3/uL (2.0-8.3); Platelet Count 300 X10*3/uL (160-400); Red Blood Count 4.14 X10*6/uL (4.20-5.50); White Blood Count 11.6 X10*3/uL (4.8-10.8)
[2021-10-25 08:34] LABS: Estimated Average Glucose 140 mg/dL; Hemoglobin A1c % 6.5 %
[2021-10-25 08:45] LABS: Alanine Aminotransferase 25 U/L (0-31); Albumin Level 4.1 g/dL (3.5-5.0); Alkaline Phosphatase 80 U/L (39-117); Anion Gap 13 (12-20); Aspartate Amino Transferase 15 U/L (5-31); Bilirubin Direct < 0.2 mg/dL (0.0-0.5); Bilirubin Total 0.4 mg/dL (0.0-1.0); Carbon Dioxide 25 mmol/L (22-29); Chloride 108 mmol/L (96-108); Cholesterol 174 mg/dL; Creatinine Clr Calc Pharmacy 48.5; Estimated Glomerular Filt Rate 48; HDL Cholesterol 37 mg/dL; LDL Cholesterol Calculated 107 mg/dl; Potassium 4.5 mmol/L (3.3-5.1); Sodium 141 mmol/L (135-145); Total Protein 6.3 g/dL (6.5-8.0); Triglycerides 153 mg/dL
[2021-10-25 09:39] LABS: Reflex LDLD? No
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
[2021-10-25 19:25] VITALS: BP 146/96; PULSE 98; TEMP 36.6
[2021-10-25] MEDS: OLANZapine ODT 10 MG TAB.RAPDIS 25 MG TRANSLINGU (22:43)
[2021-10-26] MEDS: Amoxicillin/Potassium Clav 875 MG TABLET PO ×2 (08:59→21:00)
[2021-10-26 10:00] VITALS: BP 116/68; PULSE 98; RESP 16; TEMP 36.4; O2SAT 93
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
[2021-10-26 18:00] VITALS: BP 138/84; PULSE 99; RESP 18; TEMP 36.3; O2SAT 96
[2021-10-26] MEDS: OLANZapine ODT 10 MG TAB.RAPDIS 25 MG TRANSLINGU (21:01)
[2021-10-27 05:36] VITALS: BP 130/63; PULSE 92; RESP 17; TEMP 35.6; O2SAT 98
[2021-10-27] MEDS: Amoxicillin/Potassium Clav 875 MG TABLET PO ×2 (08:35→21:37)
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
[2021-10-27 18:00] VITALS: BP 146/73; PULSE 99; TEMP 36.9
[2021-10-27] MEDS: OLANZapine ODT 10 MG TAB.RAPDIS 30 MG TRANSLINGU (21:37)
--- NOTE | 2021-10-28 | ECG_ITS ---
Test Reason : qtc check Blood Pressure : / mmHG Vent. Rate : 089 BPM Atrial Rate : 089 BPM P-R Int : 166 ms QRS Dur : 146 ms QT Int : 392 ms P-R-T Axes : 069 -63 057 degrees QTc Int : 476 ms Normal sinus rhythm Right bundle branch block Left anterior fascicular block Bifascicular block Abnormal ECG No previous ECGs available Referred By: Fly Abdul Electronically Signed By:Jose Antonio Loera
[2021-10-28 06:00] VITALS: BP 130/66; PULSE 96; RESP 14; TEMP 36.6; O2SAT 95
[2021-10-28] MEDS: Amoxicillin/Potassium Clav 875 MG TABLET PO ×2 (09:04→21:48)
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
[2021-10-28 18:00] VITALS: BP 140/62; PULSE 98; RESP 16; TEMP 36.4
[2021-10-28] MEDS: OLANZapine ODT 10 MG TAB.RAPDIS 30 MG TRANSLINGU (21:48)
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
[2021-10-29 08:21] LABS: Blood Urea Nitrogen 33 mg/dL (9-16)
[2021-10-29] MEDS: Amoxicillin/Potassium Clav 875 MG TABLET PO ×2 (09:31→21:08)
[2021-10-29 16:47] VITALS: BP 141/77; PULSE 101; RESP 18; TEMP 36.4; O2SAT 96
[2021-10-29] MEDS: OLANZapine ODT 10 MG TAB.RAPDIS 30 MG TRANSLINGU (21:08)
[2021-10-30] MEDS: Amoxicillin/Potassium Clav 875 MG TABLET PO ×2 (09:12→19:23)
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
[2021-10-30 17:50] VITALS: BP 141/73; PULSE 102; RESP 18; TEMP 36.2; O2SAT 94
[2021-10-30] MEDS: OLANZapine ODT 10 MG TAB.RAPDIS 30 MG TRANSLINGU (19:23)
[2021-10-31] MEDS: Amoxicillin/Potassium Clav 875 MG TABLET PO ×2 (08:36→19:46)
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
[2021-10-31 18:00] VITALS: RESP 16
[2021-10-31] MEDS: OLANZapine ODT 10 MG TAB.RAPDIS 30 MG TRANSLINGU (19:45)
[2021-10-31] MEDS: Loperamide HCl 2 MG CAPSULE 4 MG PO (22:31)
[2021-11-01] MEDS: hydrOXYzine HCL 25 MG TABLET PO (02:17)
[2021-11-01] MEDS: Loperamide HCl 2 MG CAPSULE 4 MG PO (03:48)
[2021-11-01 06:00] VITALS: BP 132/73; PULSE 100; RESP 18; TEMP 36.3; O2SAT 98
[2021-11-01] MEDS: Amoxicillin/Potassium Clav 875 MG TABLET PO ×2 (09:33→20:41)
[2021-11-01 16:27] VITALS: BP 127/70; PULSE 106; RESP 16; TEMP 36.7; O2SAT 94
[2021-11-01] MEDS: OLANZapine ODT 10 MG TAB.RAPDIS 30 MG TRANSLINGU (20:40)
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
[2021-11-02 06:00] VITALS: BP 123/77; PULSE 112; RESP 18; TEMP 35.7; O2SAT 96
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
[2021-11-02 20:42] LABS: COVID-19 Test Negative (Negative); IDNOW Serial# 55D5AD1C
[2021-11-02] MEDS: OLANZapine ODT 10 MG TAB.RAPDIS 30 MG TRANSLINGU (21:41)
[2021-11-03 05:15] VITALS: BP 145/81; PULSE 99; RESP 16; TEMP 36.1; O2SAT 95
[2021-11-03 08:12] LABS: MANUAL DIFF FLAG NO
[2021-11-03 08:17] LABS: Neut%MD 75.8 %; Neutrophils Absolute Auto 7.7 x10*3/uL (2.0-8.3); WBCANC 10.2 X10*3/uL
[2021-11-03 08:18] LABS: Basophils Percent Auto 0.3 % (0-2); Eosinophils Absolute Auto 0.3 X10*3/uL (0.0-0.4); Eosinophils Percent Auto 2.8 % (0-4); Hematocrit 37.4 % (37.0-47.0); Imm Gran Abs Auto 0.03 X10*3/uL (0.00-0.03); Imm Gran Pct Auto 0.3 % (0.0-0.4); Lymphocytes Absolute Auto 1.3 X10*3/uL (1.2-4.9); Mean Corpuscular HGB Conc 32.1 g/dl (31.0-35.0); Mean Corpuscular Hemoglobin 29.1 pg (27.0-33.0); Mean Corpuscular Volume 90.6 fL (80.0-98.0); Mean Platelet Volume 8.5 fL (9.4-12.3); Monocytes Absolute Auto 0.6 X10*3/uL (0.1-1.2); Monocytes Percent Auto 6.7 % (2-11); Neutrophils Absolute Auto 7.2 x10*3/uL (2.0-8.3); Neutrophils Percent Auto 75.9 % (45-73); Platelet Count 285 X10*3/uL (160-400); Red Blood Count 4.13 X10*6/uL (4.20-5.50); Red Cell Distribution Width 13.1 % (11.0-16.0); White Blood Count 9.4 X10*3/uL (4.8-10.8)
[2021-11-03] MEDS: cloZAPine 25 MG TABLET 12.5 MG PO ×2 (08:53→20:52)
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
[2021-11-03] MEDS: OLANZapine ODT 10 MG TAB.RAPDIS 20 MG TRANSLINGU (20:54)
[2021-11-03] MEDS: Magnesium Hydrox/Alum Hydrox 30 ML ORAL.SUSP PO (22:56)
[2021-11-04 06:00] VITALS: BP 155/80; PULSE 110; RESP 14; TEMP 36.4; O2SAT 93
[2021-11-04 09:18] LABS: COVID-19 Test Negative (Negative); IDNOW Serial# 08D9AD1C
[2021-11-04] MEDS: cloZAPine 25 MG TABLET 12.5 MG PO ×2 (09:45→20:21)
[2021-11-04] MEDS: traZODone HCL 50 MG TABLET PO (20:21)
[2021-11-04] MEDS: OLANZapine ODT 10 MG TAB.RAPDIS 20 MG TRANSLINGU (20:21)
[2021-11-04] MEDS: hydrOXYzine HCL 25 MG TABLET PO (20:21)
[2021-11-05 06:00] VITALS: BP 140/79; PULSE 98; RESP 18; TEMP 36.2; O2SAT 95
[2021-11-05] MEDS: cloZAPine 25 MG TABLET 12.5 MG PO ×2 (09:14→20:22)
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
[2021-11-05] MEDS: OLANZapine ODT 10 MG TAB.RAPDIS 20 MG TRANSLINGU (20:22)
[2021-11-05] MEDS: OXcarbazepine 300 MG TABLET PO (20:22)
[2021-11-06 06:00] VITALS: BP 150/85; PULSE 109; RESP 18; TEMP 36.1; O2SAT 97
[2021-11-06] MEDS: cloZAPine 25 MG TABLET 12.5 MG PO ×2 (11:01→20:42)
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
[2021-11-06 20:38] VITALS: BP 142/76; PULSE 93; RESP 17; TEMP 36.6; O2SAT 93
[2021-11-06] MEDS: traZODone HCL 50 MG TABLET PO (20:41)
[2021-11-06] MEDS: OLANZapine ODT 10 MG TAB.RAPDIS 20 MG TRANSLINGU (20:42)
[2021-11-06] MEDS: OXcarbazepine 300 MG TABLET PO (20:43)
[2021-11-07] MEDS: cloZAPine 25 MG TABLET 12.5 MG PO (09:20)
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
[2021-11-07 13:26] LABS: COVID-19 Test Negative (Negative)
[2021-11-07] MEDS: traZODone HCL 50 MG TABLET PO (22:05)
[2021-11-07] MEDS: OLANZapine ODT 10 MG TAB.RAPDIS 20 MG TRANSLINGU (22:05)
[2021-11-07] MEDS: cloZAPine 25 MG TABLET PO (22:05)
[2021-11-08] MEDS: cloZAPine 25 MG TABLET 12.5 MG PO (08:55)
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
[2021-11-08 18:00] VITALS: RESP 18
[2021-11-08] MEDS: OLANZapine ODT 10 MG TAB.RAPDIS 20 MG TRANSLINGU (20:29)
[2021-11-08] MEDS: traZODone HCL 50 MG TABLET PO (20:30)
[2021-11-08] MEDS: cloZAPine 25 MG TABLET PO (20:30)
[2021-11-09] MEDS: cloZAPine 25 MG TABLET 12.5 MG PO (08:30)
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
[2021-11-09 17:56] VITALS: BP 133/70; PULSE 109; RESP 18; TEMP 36.6; O2SAT 94
[2021-11-09] MEDS: traZODone HCL 50 MG TABLET PO (21:05)
[2021-11-09] MEDS: OLANZapine ODT 10 MG TAB.RAPDIS 20 MG TRANSLINGU (21:05)
[2021-11-09] MEDS: cloZAPine 25 MG TABLET PO (21:06)
[2021-11-10 06:00] VITALS: BP 144/76; PULSE 96; RESP 18; TEMP 36.3; O2SAT 95
[2021-11-10 08:37] LABS: MANUAL DIFF FLAG NO
[2021-11-10 08:41] LABS: Basophils Percent Auto 0.4 % (0-2); Eosinophils Absolute Auto 0.2 X10*3/uL (0.0-0.4); Hemoglobin 13.8 g/dl (12.0-16.0); Imm Gran Abs Auto 0.04 X10*3/uL (0.00-0.03); Imm Gran Pct Auto 0.4 % (0.0-0.4); Lymphocytes Absolute Auto 1.4 X10*3/uL (1.2-4.9); Mean Corpuscular HGB Conc 32.1 g/dl (31.0-35.0); Mean Corpuscular Hemoglobin 29.2 pg (27.0-33.0); Mean Corpuscular Volume 90.9 fL (80.0-98.0); Mean Platelet Volume 8.9 fL (9.4-12.3); Monocytes Absolute Auto 0.6 X10*3/uL (0.1-1.2); Monocytes Percent Auto 6.3 % (2-11); Neutrophils Absolute Auto 6.7 x10*3/uL (2.0-8.3); Neutrophils Percent Auto 74.9 % (45-73); Platelet Count 286 X10*3/uL (160-400); Red Blood Count 4.73 X10*6/uL (4.20-5.50); Red Cell Distribution Width 13.1 % (11.0-16.0)
[2021-11-10 08:42] LABS: Neut%MD 75.1 %; Neutrophils Absolute Auto 7.1 x10*3/uL (2.0-8.3); WBCANC 9.4 X10*3/uL
[2021-11-10 18:00] VITALS: RESP 16
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
[2021-11-10] MEDS: OLANZapine ODT 10 MG TAB.RAPDIS 20 MG TRANSLINGU (21:01)
[2021-11-11] MEDS: traZODone HCL 50 MG TABLET PO ×2 (00:25→21:26)
[2021-11-11] MEDS: hydrOXYzine HCL 25 MG TABLET PO (00:25)
[2021-11-11] MEDS: Ibuprofen 400 MG TABLET PO (00:25)
[2021-11-11 06:00] VITALS: RESP 16
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
[2021-11-11 17:12] VITALS: RESP 18
[2021-11-11] MEDS: cloZAPine 25 MG TABLET 50 MG PO (21:26)
[2021-11-11] MEDS: OLANZapine ODT 10 MG TAB.RAPDIS 20 MG TRANSLINGU (21:26)
[2021-11-12 17:47] VITALS: RESP 16
[2021-11-12] MEDS: OLANZapine ODT 10 MG TAB.RAPDIS 20 MG TRANSLINGU (20:59)
[2021-11-12] MEDS: cloZAPine 25 MG TABLET 50 MG PO (20:59)
[2021-11-12] MEDS: traZODone HCL 50 MG TABLET PO (20:59)
--- NOTE | 2021-11-13 04:45 | PC.NURSE ---
Pt awoke this shift out into the hallway yelling GET OUT GET OUT . Pt was redirected. Pt later came to [facility] and stated, I'm queer and I'm comfortable , then walked away.
[2021-11-13 06:00] VITALS: BP 140/77; PULSE 105; RESP 18; TEMP 36.4; O2SAT 96
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
[2021-11-13 18:00] VITALS: BP 150/69; PULSE 98; TEMP 36.9
[2021-11-13] MEDS: traZODone HCL 50 MG TABLET PO (20:11)
[2021-11-13] MEDS: OLANZapine ODT 10 MG TAB.RAPDIS 20 MG TRANSLINGU (20:11)
[2021-11-13] MEDS: cloZAPine 25 MG TABLET 50 MG PO (20:11)
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
[2021-11-14 17:35] VITALS: RESP 16
[2021-11-14] MEDS: OLANZapine ODT 10 MG TAB.RAPDIS 15 MG TRANSLINGU (19:48)
[2021-11-14] MEDS: traZODone HCL 50 MG TABLET PO (19:49)
[2021-11-14] MEDS: cloZAPine 25 MG TABLET 75 MG PO (19:49)
[2021-11-14 19:58] VITALS: BP 140/69; PULSE 82; TEMP 36.3; O2SAT 94
[2021-11-15 06:00] VITALS: BP 139/88; PULSE 96; RESP 16; TEMP 36.3; O2SAT 97
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
[2021-11-15 17:14] VITALS: BP 139/80; PULSE 105
[2021-11-15 20:43] VITALS: BP 151/86; PULSE 101; RESP 18; TEMP 36.8; O2SAT 94
[2021-11-15] MEDS: OLANZapine ODT 10 MG TAB.RAPDIS 15 MG TRANSLINGU (21:43)
[2021-11-15] MEDS: cloZAPine 25 MG TABLET 75 MG PO (21:43)
[2021-11-15] MEDS: traZODone HCL 100 MG TABLET PO (21:43)
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
[2021-11-16 17:32] LABS: Appearance Urine CLEAR; Color Urine STRAW; Glucose Urine UA NEG (NEG); Leukocyte Esterase Urine 1+ (NEG); Nitrite Urine NEG (NEG); Specific Gravity - Urine <= 1.005 (1.005-1.025); UACC Culture Trigger YES; Urine Blood NEG (NEG); Urine Ketones NEG (NEG); Urine Protein NEG (NEG-TRACE)
[2021-11-16 17:58] LABS: Bacteria Urine TRACE /LPF; RBC Urine 0-2 /HPF (0); Squamous Epithelial Cell Urine TRACE /LPF; UACC CULT YES
[2021-11-16 18:00] VITALS: BP 121/63; PULSE 107; RESP 16; O2SAT 92
[2021-11-16] MEDS: traZODone HCL 100 MG TABLET PO (22:01)
[2021-11-16] MEDS: OLANZapine ODT 10 MG TAB.RAPDIS 15 MG TRANSLINGU (22:01)
[2021-11-16] MEDS: cloZAPine 25 MG TABLET 75 MG PO (22:02)
[2021-11-16] MEDS: Nystatin Cream 15 GM TUBE 1 APPL TOPICAL (22:06)
[2021-11-16 22:16] VITALS: O2SAT 95
--- NOTE | 2021-11-16 23:11 | PC.NURSE ---
PT requested that this clinical writer look at her left foot as it has been quite painful. A slit on the left heel was observed, approximately 1/4 vertically with a small amount of swelling. This nurse also assessed the right foot where a smaller slit was found on the heel. Triple antibiotic ointment was applied and both were covered with band aids. Reported off to next shift that podiatry consult should be put in for tomorrow.
[2021-11-17 03:09] LABS: CT PCR NOT DETECTED (Not Detect.); NG PCR NOT DETECTED (Not Detect.)
[2021-11-17 06:00] VITALS: BP 133/79; PULSE 96; RESP 18; TEMP 36.6; O2SAT 94
[2021-11-17 08:02] LABS: MANUAL DIFF FLAG NO
[2021-11-17 08:05] LABS: Basophils Percent Auto 0.6 % (0-2); Eosinophils Absolute Auto 0.2 X10*3/uL (0.0-0.4); Eosinophils Percent Auto 3.2 % (0-4); Hematocrit 38.5 % (37.0-47.0); Hemoglobin 12.4 g/dl (12.0-16.0); Imm Gran Abs Auto 0.02 X10*3/uL (0.00-0.03); Imm Gran Pct Auto 0.3 % (0.0-0.4); Lymphocytes Absolute Auto 1.2 X10*3/uL (1.2-4.9); Lymphocytes Percent Auto 16.9 % (20-40); Mean Corpuscular HGB Conc 32.2 g/dl (31.0-35.0); Mean Platelet Volume 8.9 fL (9.4-12.3); Monocytes Absolute Auto 0.6 X10*3/uL (0.1-1.2); Monocytes Percent Auto 7.8 % (2-11); Neutrophils Absolute Auto 5.1 x10*3/uL (2.0-8.3); Neutrophils Percent Auto 71.2 % (45-73); Platelet Count 217 X10*3/uL (160-400); Red Blood Count 4.28 X10*6/uL (4.20-5.50); Red Cell Distribution Width 13.2 % (11.0-16.0); White Blood Count 7.1 X10*3/uL (4.8-10.8)
[2021-11-17] MEDS: Acetaminophen 325 MG TABLET 650 MG PO (08:33)
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
[2021-11-17] MEDS: Fluconazole 150 MG TABLET PO (12:27)
--- NOTE | 2021-11-17 14:22 | PC.NURSE ---
assisted pt with soaking her feet. dried feet and applied vaseline and new socks to affected areas. skin is noted to be dry.
[2021-11-17 18:00] VITALS: BP 140/80; PULSE 93; TEMP 37
[2021-11-17] MEDS: traZODone HCL 100 MG TABLET PO (21:50)
[2021-11-17] MEDS: OLANZapine ODT 10 MG TAB.RAPDIS 15 MG TRANSLINGU (21:50)
[2021-11-17] MEDS: cloZAPine 100 MG TABLET PO (21:50)
[2021-11-18 06:00] VITALS: PULSE 95; RESP 14; TEMP 36.3; O2SAT 94
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
--- NOTE | 2021-11-18 14:26 | PC.NURSE ---
pt did soak her feet today. after feet were dried vaseline applied to dry feet and as i left the room she said i love you eleni . very sweet and appreciative..
[2021-11-18 19:53] VITALS: PULSE 92; RESP 18; TEMP 36.1; O2SAT 95
[2021-11-18] MEDS: cloZAPine 100 MG TABLET PO (19:59)
[2021-11-18] MEDS: traZODone HCL 100 MG TABLET PO (19:59)
[2021-11-18] MEDS: OLANZapine ODT 10 MG TAB.RAPDIS 15 MG TRANSLINGU (20:00)
--- NOTE | 2021-11-19 | ECG_ITS ---
Test Reason : tachycardia Blood Pressure : / mmHG Vent. Rate : 114 BPM Atrial Rate : 114 BPM P-R Int : 154 ms QRS Dur : 138 ms QT Int : 368 ms P-R-T Axes : 072 -81 073 degrees QTc Int : 507 ms Sinus tachycardia Right bundle branch block Left anterior fascicular block Bifascicular block Abnormal ECG When compared with ECG of 28-OCT-2021 11:19, Vent. rate has increased Referred By: Yolanda Rosado Electronically Signed By:JADA GRIMES MD
[2021-11-19 06:39] VITALS: BP 130/76; PULSE 100; RESP 18; TEMP 36.1; O2SAT 95
[2021-11-19] MEDS: Milk of Magnesia 30 ML ORAL.SUSP PO (09:05)
[2021-11-19 16:43] VITALS: BP 138/76; PULSE 106; RESP 16; TEMP 36.7; O2SAT 88
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
[2021-11-19 18:21] LABS: COVID-19 Test Negative (Negative); IDNOW Serial# 9DD0AD1C
[2021-11-19 18:23] LABS: MANUAL DIFF FLAG NO
[2021-11-19 18:26] LABS: Basophils Percent Auto 0.3 % (0-2); Eosinophils Absolute Auto 0.2 X10*3/uL (0.0-0.4); Eosinophils Percent Auto 1.8 % (0-4); Hematocrit 40.3 % (37.0-47.0); Hemoglobin 13.4 g/dl (12.0-16.0); Imm Gran Abs Auto 0.06 X10*3/uL (0.00-0.03); Imm Gran Pct Auto 0.5 % (0.0-0.4); Lymphocytes Absolute Auto 1.3 X10*3/uL (1.2-4.9); Lymphocytes Percent Auto 10.8 % (20-40); Mean Corpuscular HGB Conc 33.3 g/dl (31.0-35.0); Mean Corpuscular Hemoglobin 29.6 pg (27.0-33.0); Mean Corpuscular Volume 89.2 fL (80.0-98.0); Monocytes Absolute Auto 0.8 X10*3/uL (0.1-1.2); Monocytes Percent Auto 6.5 % (2-11); Neutrophils Absolute Auto 9.5 x10*3/uL (2.0-8.3); Neutrophils Percent Auto 80.1 % (45-73); Platelet Count 263 X10*3/uL (160-400); Red Blood Count 4.52 X10*6/uL (4.20-5.50); Red Cell Distribution Width 13.1 % (11.0-16.0); White Blood Count 11.9 X10*3/uL (4.8-10.8)
[2021-11-19 18:47] LABS: D Dimer High Sensitivity 179 NG/ML
[2021-11-19] MEDS: OLANZapine ODT 10 MG TAB.RAPDIS TRANSLINGU (20:19)
[2021-11-19] MEDS: cloZAPine 25 MG TABLET 50 MG PO (20:19)
[2021-11-19] MEDS: traZODone HCL 100 MG TABLET PO (20:19)
--- NOTE | 2021-11-19 21:39 | PC.NURSE ---
FOLLOW UP BY DR. LOUIE, REVIEWED COVID SWAP, EKG AND CHEST X RAY. NO NEW FINDINGS, NO NEW ORDERS. PT.'S O2 SAT. AT PRESENT TIME 94% AT ROOM TEMP. PT. DENIES DISCOMFORT/PAIN, AFFECT CONGRUENT WITH STATEMENT. PT. FOCUSED ON STOOL SOFTENER . PT. IS ACTIVE ON UNIT, VS STABLE,
[2021-11-20] MEDS: Milk of Magnesia 30 ML ORAL.SUSP PO (04:04)
[2021-11-20 06:45] VITALS: BP 141/75; PULSE 94; RESP 18; TEMP 36.1; O2SAT 94
[2021-11-20 09:00] VITALS: BP 124/69; PULSE 98; TEMP 36.1; O2SAT 95
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
[2021-11-20 11:02] LABS: MANUAL DIFF FLAG NO
[2021-11-20] MEDS: Magnesium Citrate 300 ML SOLUTION PO (11:07)
[2021-11-20 11:33] LABS: Basophils Percent Auto 0.4 % (0-2); Eosinophils Absolute Auto 0.2 X10*3/uL (0.0-0.4); Hematocrit 41.4 % (37.0-47.0); Hemoglobin 13.5 g/dl (12.0-16.0); Imm Gran Abs Auto 0.04 X10*3/uL (0.00-0.03); Imm Gran Pct Auto 0.4 % (0.0-0.4); Lymphocytes Absolute Auto 1.3 X10*3/uL (1.2-4.9); Lymphocytes Percent Auto 12.7 % (20-40); Mean Corpuscular HGB Conc 32.6 g/dl (31.0-35.0); Mean Corpuscular Hemoglobin 29.3 pg (27.0-33.0); Mean Corpuscular Volume 89.8 fL (80.0-98.0); Mean Platelet Volume 9.1 fL (9.4-12.3); Monocytes Absolute Auto 0.6 X10*3/uL (0.1-1.2); Monocytes Percent Auto 6.1 % (2-11); Neutrophils Absolute Auto 8.1 x10*3/uL (2.0-8.3); Neutrophils Percent Auto 78.4 % (45-73); Platelet Count 260 X10*3/uL (160-400); Red Blood Count 4.61 X10*6/uL (4.20-5.50); Red Cell Distribution Width 13.3 % (11.0-16.0); White Blood Count 10.4 X10*3/uL (4.8-10.8)
[2021-11-20 13:00] VITALS: BP 143/72; PULSE 107; TEMP 36.3; O2SAT 93
[2021-11-20 16:57] VITALS: BP 146/79; PULSE 105; TEMP 36.1; O2SAT 96
[2021-11-20] MEDS: OLANZapine ODT 10 MG TAB.RAPDIS TRANSLINGU (20:48)
[2021-11-20] MEDS: traZODone HCL 100 MG TABLET PO (20:48)
[2021-11-20] MEDS: cloZAPine 25 MG TABLET 50 MG PO (20:48)
--- NOTE | 2021-11-21 | ECG_ITS ---
Test Reason : 150 bpm Blood Pressure : / mmHG Vent. Rate : 146 BPM Atrial Rate : 000 BPM P-R Int : 000 ms QRS Dur : 144 ms QT Int : 348 ms P-R-T Axes : 000 -77 072 degrees QTc Int : 542 ms Undetermined rhythm Possible Atrial flutter with 2 to 1 block or Supraventricular tachycardia Right bundle branch block Left anterior fascicular block Bifascicular block Left ventricular hypertrophy with repolarization abnormality ( R in aVL ) Abnormal ECG When compared with ECG of 19-NOV-2021 17:56, Vent. rate has increased Referred By: Juanito Louis Electronically Signed By:JADA GRIMES MD
[2021-11-21] MEDS: Fluconazole 150 MG TABLET PO (08:31)
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
[2021-11-21 19:45] VITALS: BP 133/74; PULSE 150; RESP 18; TEMP 36.2; O2SAT 94
[2021-11-21] MEDS: OLANZapine ODT 10 MG TAB.RAPDIS TRANSLINGU (20:19)
[2021-11-21] MEDS: traZODone HCL 100 MG TABLET PO (20:19)
[2021-11-21] MEDS: cloZAPine 25 MG TABLET 75 MG PO (20:19)
--- NOTE | 2021-11-21 22:21 | P.EN_ITS ---
Event Note Date of Service: 11/22/21 Event Note: tachycardia: Patient has been tachycardic in 140s. Patient has baseline right bundle branch block and vascular block with widened QRS of 140s. monomorphic repeat EKG today showed QRS of 146, tachycardia to 146. patient denies any symptoms -denies lightheadedness, dizziness, palpitations, chest pain, shortness of breath, dyspnea on exertion. patient not on any beta-blockers currently Patient take Clozaril and Zyprexa which can prolong QTC Patient appears mildly dry- increase to drink p.o. fluids ordered stat labs for basic metabolic panel, troponin, magnesium, phosphorus, D-dimer paged Dr. John from Cardiology with EKGs -mentions likely A flutter with aberrancy; recs Metoprolol and Dilt drip if needed. Also mentions telemetry. spoke to RN to move to Telemetry. patient has been the spacing to be moved to the telemetry floor. Multiple it ems more made but patient was adamantly refusing to come to the fluid to change her room. In between patient remained hemodynamically stable but heart rate continues to be frustrating between 120 to 140s. Patient received p.o. metoprolol and diltiazem with little response. I I tried to speak to the patient but patient refusing to discuss her current health situation. I called patient's healthcare proxy was invoked by her primary psychiatrist earlier in her hospital course -Health Care Proxy: Erin [phone]-> left voice msg with call back number. I asked the patient's on-call psychiatrist about the patient's capacity to refuse treatment -mentioned that unable to decided this time; also given concerns for patient's agitation and worsening heart rate because of agitation if the treatment is being forced and currently patient being asymptomatic to try conservative management tonight and to keep closely monitoring the patient. on labs noted to have normal potassium level; magnesium 2.7; calcium 10.4; concern for dehydration. Encouraged oral fluid intake. Troponin and D-dimer negative. Repeat troponin pending. Update: 5:30Am pt remained asymptomatic. HR improved to 88; BP 119/71. Hypoxia: pt sats 91% on RA. CXR negative. DDimer negative. troponins negative. Likely poor effort feom obesity. Breathing comfortably on RA. transfer cancelled Aflutter: HR improved. started on Metoprolol 25mg BID; received extra metoprolol 25mg abd Diltiazem 30mg x1 overnight. TSH wnl from admission. Cardiology follow up in AM. Echo ordered.
[2021-11-21] MEDS: Acetaminophen 325 MG TABLET 650 MG PO (22:37)
[2021-11-21 22:51] VITALS: BP 129/74; PULSE 147; RESP 20; O2SAT 92
[2021-11-21] MEDS: Metoprolol Tartrate 25 MG TABLET PO (22:58)
[2021-11-21 23:27] VITALS: BP 127/75; PULSE 149
[2021-11-21 23:47] LABS: D Dimer High Sensitivity < 150 NG/ML
[2021-11-21 23:49] LABS: Troponin-I High Sensitivity 10.8 ng/L (<3.5-17.0)
[2021-11-21 23:52] LABS: Anion Gap 11 (12-20); Blood Urea Nitrogen 24 mg/dL (9-16); Calcium 10.4 mg/dL (8.4-10.2); Carbon Dioxide 28 mmol/L (22-29); Chloride 109 mmol/L (96-108); Estimated Glomerular Filt Rate 40; Glucose Random 177 mg/dL (60-115); Magnesium 2.7 mg/dL (1.6-2.6); Phosphorus 3.3 mg/dL (2.7-4.5); Sodium 144 mmol/L (135-145)
[2021-11-22] VITALS (7 sets, daily range): BP systolic 105–119; BP diastolic 59–75; PULSE 88–138; RESP 14–18; TEMP 35.9; O2SAT 91–96
[2021-11-22] MEDS: dilTIAZem HCL 30 MG TABLET PO (01:11)
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
[2021-11-22 02:48] LABS: Troponin-I High Sensitivity 13.4 ng/L (<3.5-17.0)
--- NOTE | 2021-11-22 06:42 | PC.NURSE ---
Pt was running high HR all night. Was going to be transferred to Telemetry but pt was adamantly refusing. HR @ 0130 was 138, @ 0330 it was 127 and at 0530 HR was 88. Security was brought up to bring her down but she had refused. Pt complied with vitals but refused any medications. Hospitalist Elena and Nursing Product Ambassador was up to see her at the bedside to speak to her, she refused to go downstairs. Doctor ordered Lopressor and encouraged her to drink more. Pt drank more water, at least 1 literon overnight. She refused all meds. Pt vitals have been monitored q2h throughout the night.
[2021-11-22] MEDS: Metoprolol Tartrate 25 MG TABLET PO ×2 (08:38→20:36)
--- NOTE | 2021-11-22 11:13 | P.CONCA_ITS ---
History of Present Illness History of Present Illness Date of Service: 11/22/21 Requesting physician: Edson Parker Chief complaint: Tachycardia Narrative: I was requested to see Nusrat in cardiology consultation due to noted tachycardia yesterday on EKG. Patient does not provide much history and is a limited historian. She has been admitted to the hospital for 82 days for schizophrenia and psychosis. She still has ovaries about her left foot and thinks that this will be amputated. Yesterday on routine monitoring of her vital signs was noted to be tachycardic. She had refused EKG initially however subsequently agreed. 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 This is unclear based on the 12 lead EKG. Patient was then treated by hospitalist team with Cardizem IV as well as overall as well as metoprolol. This morning the heart rate is settle down. Patient does not recall having any symptoms. She denies any prior cardiac history. Difficult to obtain history from her. Mostly obtained from the chart. Patient denies any further workup including EKG and was also denying initially meeting with me but subsequently agreed with persuasion. Review of Systems Review of Systems: Yes Unobtainable due to mental status PMFSH Social History Social History Household Members: None Housing Other:: mobile home Do you presently have visiting nurse or other home services: No Patient Tobacco Use Status: Former Tobacco user Quit Date: 1980 e-Cigarette/Vaping Use: Never Used Second Hand Smoke Exposure: No service: No Sexual orientation: Decline to Answer Meds Allergies Allergy/AdvReac Type Severity Reaction Status Date / Time No Known Allergies Allergy Unverified 08/05/20 17:11 [No Known Allergies*] Active Medications: Current Medications Acetaminophen (Acetaminophen 325 Mg Tablet) 650 mg PO Q6H PRN PRN Reason: Headache/Pain Mild Scale (1-3) Last Admin: 11/21/21 22:37 Dose: 650 mg Documented by: Al Hydroxide/Mg Hydroxide (Magnesium Hydrox/Alum Hydrox 30 Ml Oral.Susp) 30 ml PO Q6H PRN PRN Reason: Heartburn/Nausea Last Admin: 11/03/21 22:56 Dose: 30 ml Documented by: Clozapine (Clozapine 25 Mg Tablet) 75 mg PO BEDTIME CECE Last Admin: 11/21/21 20:19 Dose: 75 mg Documented by: Diltiazem HCl (Diltiazem Hcl 50 Mg/10 Ml Vial) 10 mg IVPUSH Q4H PRN PRN Reason: HR>120 Hydrocortisone (Hydrocortisone 2.5 % Rectal Cr 30 Gm Tube) 1 appl TN DAILY PRN PRN Reason: hemorrhoids Last Admin: 10/23/21 22:33 Dose: 1 appl Documented by: Hydroxyzine HCl (Hydroxyzine Hcl 25 Mg Tablet) 25 mg PO BEDTIME PRN PRN Reason: Anxiety Last Admin: 11/11/21 00:25 Dose: 25 mg Documented by: Ibuprofen (Ibuprofen 400 Mg Tablet) 400 mg PO Q6H PRN PRN Reason: tooth pain Last Admin: 11/11/21 00:25 Dose: 400 mg Documented by: Loperamide HCl (Loperamide Hcl 2 Mg Capsule) 4 mg PO Q6H PRN PRN Reason: diarrhea Last Admin: 11/01/21 03:48 Dose: 4 mg Documented by: Magnesium Hydroxide (Milk Of Magnesia 30 Ml Oral.Susp) 30 ml PO DAILY PRN PRN Reason: Constipation Last Admin: 11/20/21 04:04 Dose: 30 ml Documented by: Metoprolol Tartrate (Metoprolol Tartrate 25 Mg Tablet) 25 mg PO BID CECE; Protocol Last Admin: 11/22/21 08:38 Dose: 25 mg Documented by: Olanzapine (Olanzapine Odt 10 Mg Tab.Rapdis) 10 mg TRANSLINGU BEDTIME CECE Last Admin: 11/21/21 20:19 Dose: 10 mg Documented by: Olanzapine (Olanzapine 10 Mg Vial) 10 mg IM DAILY PRN PRN Reason: REFUSAL OF PO COURT ORDEREd Pharmacy Consult (Consult Rx Perform Med Rec) 1 each MISCELLANE ONCE PRN PRN Reason: Consult order Trazodone HCl (Trazodone Hcl 50 Mg Tablet) 50 mg PO BEDTIME PRN PRN Reason: continued insomnia Last Admin: 11/11/21 00:25 Dose: 50 mg Documented by: Trazodone HCl (Trazodone Hcl 100 Mg Tablet) 100 mg PO BEDTIME CECE Last Admin: 11/21/21 20:19 Dose: 100 mg Documented by: Home Medications Medication Instructions Recorded Confirmed Last Taken Type haloperidol 0.5 mg tablet 1 tab PO BID PRN 09/01/21 09/01/21 Unknown History ibuprofen 200 mg tablet 400 mg PO Q6H PRN 09/01/21 09/01/21 Unknown History lorazepam 1 mg tablet 1 tab PO BEDTIME PRN 09/01/21 09/01/21 Unknown History propranolol 20 mg tablet 1 tab PO TID 09/01/21 09/01/21 Unknown History Physical Exam Vital Signs: Vital Signs: Last Vital Signs Temp 96.7 F L 11/22/21 05:33 Pulse 94 11/22/21 10:01 Resp 14 11/22/21 10:01 BP 119/75 11/22/21 08:40 Pulse Ox 94 11/22/21 10:01 BMI result Body Mass Index 37.6 Const: General: cooperative, comfortable, no acute distress, alert and awake Nutritional Appearance: obese Limitations: no limitations HENMT: Head: Yes normocephalic and Yes atraumatic Neck: Neck: Yes trachea midline, Yes supple and Yes no JVD Resp: Effort & Inspection: normal respiratory effort Auscultation: clear to auscultation bilaterally Cardio: Jugular venous distension: no JVD Palpation: normal PMI Rate: regular rate Rhythm: regular rhythm Heart sounds: S1 normal heart sound present, S2 normal heart sound present, no click, no gallops, no murmurs and no rubs GI: Auscultation: normal bowel sounds Skin: General skin exam: no rashes or lesions noted Neuro: General: no focal motor deficits Objective Labs and Meds Result diagrams: 11/20/21 10:58 11/21/21 23:23 Lab results: Laboratory Results - last 24 hr 11/21/21 11/21/21 11/21/21 23:23 23:23 23:23 D-Dimer High Sensitivty < 150 Sodium 144 Potassium 4.0 Chloride 109 H Carbon Dioxide 28 Anion Gap 11 L BUN 24 H Creatinine 1.33 Estim Creat Clear Calc 42.0 Estimated GFR 40 Random Glucose 177 H Calcium 10.4 H Phosphorus 3.3 Magnesium 2.7 H Troponin I High Sens 10.8 11/22/21 01:51 D-Dimer High Sensitivty Sodium Potassium Chloride Carbon Dioxide Anion Gap BUN Creatinine Estim Creat Clear Calc Estimated GFR Random Glucose Calcium Phosphorus Magnesium Troponin I High Sens 13.4 Imaging Radiologist's impression: Impressions Chest X-Ray 11/22/21 10:00 IMPRESSION: Unremarkable examination. Assessment and Plan (1) Tachycardia: Status: Acute Patient developed tachycardia yesterday, noted incidentally on routine monitoring. There were no reported symptoms. 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 Advise Toprol-XL 50 mg daily. Avoid stimulants. Patient is refusing EKG, if he can convince her to get EKG today. Also given a bifascicular block, would consider an echocardiogram if she agrees to it. Continue usual management for a psychiatric condition. It will be difficult to monitor and assess frequency of this arrhythmias she is asymptomatic. Currently as her arrhythmias subsided and is paroxysmal in nature no need for transfer to telemetry. Will sign of the case Procedures Date of Service Date of Service: 11/22/21
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
[2021-11-22] MEDS: OLANZapine ODT 10 MG TAB.RAPDIS 5 MG TRANSLINGU (20:36)
[2021-11-22] MEDS: cloZAPine 100 MG TABLET PO (20:36)
[2021-11-22] MEDS: traZODone HCL 100 MG TABLET PO (20:37)
--- NOTE | 2021-11-23 | ECG_ITS ---
Test Reason : chest pain Blood Pressure : / mmHG Vent. Rate : 085 BPM Atrial Rate : 085 BPM P-R Int : 160 ms QRS Dur : 148 ms QT Int : 398 ms P-R-T Axes : 065 -66 052 degrees QTc Int : 473 ms Sinus rhythm with Premature supraventricular complexes Right bundle branch block Left anterior fascicular block Bifascicular block Minimal voltage criteria for LVH, may be normal variant ( R in aVL ) Abnormal ECG When compared with ECG of 21-NOV-2021 21:30, Premature supraventricular complexes are now Present Vent. rate has decreased BY 61 BPM NSR has replaced SVT/AFlutter Referred By: Fly Abdul Electronically Signed By:JADA GRIMES MD
[2021-11-23 03:06] VITALS: BP 148/76; PULSE 92; RESP 16; TEMP 36.4; O2SAT 96
--- NOTE | 2021-11-23 08:05 | PC.NURSE ---
Pt had split dry cracked heels, especially the left one. Placed petroleum jelly on both with a bandaid and sleeve bandage covering it. Pt refused soaking.
[2021-11-23 13:00] VITALS: BP 135/76; PULSE 97; RESP 18
[2021-11-23] MEDS: Metoprolol Tartrate 25 MG TABLET PO ×2 (13:51→21:48)
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
[2021-11-23 18:22] VITALS: BP 114/56; PULSE 99; RESP 16; TEMP 36.2; O2SAT 93
[2021-11-23] MEDS: cloZAPine 100 MG TABLET PO (21:48)
[2021-11-23] MEDS: traZODone HCL 100 MG TABLET PO (21:49)
[2021-11-23] MEDS: OLANZapine ODT 10 MG TAB.RAPDIS 5 MG TRANSLINGU (21:49)
[2021-11-23 22:05] VITALS: BP 135/61; PULSE 94; RESP 16; TEMP 36.1; O2SAT 93
[2021-11-24 05:45] VITALS: BP 143/67; PULSE 94; RESP 17; TEMP 36.2; O2SAT 96
[2021-11-24 08:21] LABS: MANUAL DIFF FLAG NO
[2021-11-24] MEDS: Metoprolol Tartrate 25 MG TABLET PO ×2 (08:33→20:35)
[2021-11-24 08:41] LABS: Basophils Percent Auto 0.4 % (0-2); Eosinophils Absolute Auto 0.3 X10*3/uL (0.0-0.4); Eosinophils Percent Auto 3.2 % (0-4); Hematocrit 39.3 % (37.0-47.0); Hemoglobin 12.7 g/dl (12.0-16.0); Imm Gran Abs Auto 0.03 X10*3/uL (0.00-0.03); Imm Gran Pct Auto 0.4 % (0.0-0.4); Lymphocytes Absolute Auto 1.4 X10*3/uL (1.2-4.9); Lymphocytes Percent Auto 18.3 % (20-40); Mean Corpuscular HGB Conc 32.3 g/dl (31.0-35.0); Mean Corpuscular Hemoglobin 29.2 pg (27.0-33.0); Mean Corpuscular Volume 90.3 fL (80.0-98.0); Mean Platelet Volume 8.8 fL (9.4-12.3); Monocytes Absolute Auto 0.6 X10*3/uL (0.1-1.2); Monocytes Percent Auto 7.4 % (2-11); Neutrophils Absolute Auto 5.6 x10*3/uL (2.0-8.3); Neutrophils Percent Auto 70.3 % (45-73); Platelet Count 241 X10*3/uL (160-400); Red Blood Count 4.35 X10*6/uL (4.20-5.50); Red Cell Distribution Width 13.5 % (11.0-16.0); White Blood Count 7.9 X10*3/uL (4.8-10.8)
[2021-11-24 09:00] VITALS: BP 144/68; PULSE 94; RESP 16; TEMP 36.2; O2SAT 96
[2021-11-24 09:03] LABS: TSH reflex Free T4 0.41 uIU/mL (0.32-4.0)
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
--- NOTE | 2021-11-24 12:53 | PC.NURSE ---
pt refused echo.dr. Abdul aware.
[2021-11-24] MEDS: Bacitracin Oint 14 GM TUBE 1 APPL TOPICAL ×2 (14:14→21:14)
[2021-11-24 17:17] VITALS: BP 137/77; PULSE 83; RESP 18; TEMP 36.6; O2SAT 93
[2021-11-24] MEDS: OLANZapine ODT 10 MG TAB.RAPDIS 5 MG TRANSLINGU (20:26)
[2021-11-24] MEDS: traZODone HCL 100 MG TABLET PO (20:26)
[2021-11-24] MEDS: cloZAPine 100 MG TABLET PO (20:26)
[2021-11-24 20:37] VITALS: BP 188/94; PULSE 87; RESP 18; TEMP 36.4; O2SAT 94
--- NOTE | 2021-11-24 21:14 | PC.NURSE ---
Pt adamantly refusing foot bath x2.
[2021-11-25] MEDS: Metoprolol Tartrate 25 MG TABLET PO ×2 (08:35→21:53)
[2021-11-25] MEDS: cloZAPine 25 MG TABLET 12.5 MG PO (08:35)
[2021-11-25] MEDS: Bacitracin Oint 14 GM TUBE 1 APPL TOPICAL ×3 (08:48→22:14)
--- NOTE | 2021-11-25 14:06 | P.PNPSI_ITS ---
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 HOSPITALS and Dr. Carrizales. I spent minutes with the patient and/or on the patient floor today, greater than?50% of which was spent counseling/coordinating care. Reason for contiued inpatient stay Substantial Risk for: inability to function
[2021-11-25 14:18] VITALS: BP 121/68; PULSE 96; RESP 14; O2SAT 95
[2021-11-25 18:00] VITALS: BP 122/71; PULSE 97; RESP 16; TEMP 36.1; O2SAT 95
[2021-11-25] MEDS: cloZAPine 25 MG TABLET 112.5 MG PO (21:53)
[2021-11-25] MEDS: OLANZapine ODT 10 MG TAB.RAPDIS 5 MG TRANSLINGU (21:53)
[2021-11-25] MEDS: traZODone HCL 100 MG TABLET PO (21:59)
[2021-11-26] MEDS: Metoprolol Tartrate 25 MG TABLET PO ×2 (08:32→20:54)
[2021-11-26] MEDS: cloZAPine 25 MG TABLET 12.5 MG PO (08:36)
[2021-11-26] MEDS: Bacitracin Oint 14 GM TUBE 1 APPL TOPICAL ×3 (08:36→20:58)
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
[2021-11-26 18:10] VITALS: BP 133/73; PULSE 99; RESP 18; TEMP 36.8; O2SAT 96
[2021-11-26] MEDS: OLANZapine ODT 10 MG TAB.RAPDIS 5 MG TRANSLINGU (20:54)
[2021-11-26] MEDS: traZODone HCL 100 MG TABLET PO (20:55)
[2021-11-26] MEDS: cloZAPine 25 MG TABLET 112.5 MG PO (20:55)
[2021-11-26 21:00] VITALS: BP 132/71; PULSE 104
[2021-11-27] MEDS: cloZAPine 25 MG TABLET 12.5 MG PO (08:49)
[2021-11-27] MEDS: Metoprolol Tartrate 25 MG TABLET PO ×2 (08:49→20:18)
[2021-11-27] MEDS: Bacitracin Oint 14 GM TUBE 1 APPL TOPICAL ×3 (08:50→20:20)
[2021-11-27 08:59] VITALS: PULSE 90; RESP 14; TEMP 36.9; O2SAT 96
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
[2021-11-27] MEDS: OLANZapine ODT 10 MG TAB.RAPDIS 5 MG TRANSLINGU (20:16)
[2021-11-27] MEDS: traZODone HCL 100 MG TABLET PO (20:16)
[2021-11-27] MEDS: cloZAPine 25 MG TABLET 112.5 MG PO (20:18)
[2021-11-27 20:29] VITALS: BP 120/57; PULSE 108; RESP 18; TEMP 36.8; O2SAT 94
[2021-11-28 05:59] VITALS: BP 123/70; PULSE 87; RESP 16; TEMP 36.2; O2SAT 94
[2021-11-28] MEDS: cloZAPine 25 MG TABLET 12.5 MG PO (08:19)
[2021-11-28] MEDS: Metoprolol Tartrate 25 MG TABLET PO ×2 (08:19→21:27)
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
[2021-11-28 18:00] VITALS: BP 123/78; PULSE 99; RESP 16; TEMP 36.3; O2SAT 93
[2021-11-28] MEDS: traZODone HCL 100 MG TABLET PO (21:26)
[2021-11-28] MEDS: cloZAPine 100 MG, cloZAPine 25 MG 125 MG PO (21:27)
[2021-11-28] MEDS: OLANZapine ODT 10 MG TAB.RAPDIS 5 MG TRANSLINGU (21:27)
[2021-11-29 06:16] VITALS: BP 118/53; PULSE 85; RESP 18; TEMP 36.8; O2SAT 94
[2021-11-29 10:10] VITALS: BP 123/92; PULSE 92
[2021-11-29] MEDS: Metoprolol Tartrate 25 MG TABLET PO ×2 (10:21→20:41)
[2021-11-29] MEDS: cloZAPine 25 MG TABLET 12.5 MG PO (10:23)
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
[2021-11-29 20:35] VITALS: BP 133/76; PULSE 101; RESP 16; TEMP 37; O2SAT 94
[2021-11-29] MEDS: OLANZapine ODT 10 MG TAB.RAPDIS 5 MG TRANSLINGU (20:40)
[2021-11-29] MEDS: cloZAPine 100 MG, cloZAPine 25 MG 125 MG PO (20:41)
[2021-11-29] MEDS: traZODone HCL 100 MG TABLET PO (20:41)
[2021-11-29 20:50] VITALS: TEMP 37
[2021-11-30 05:45] VITALS: BP 121/67; PULSE 80; RESP 16; TEMP 36.2; O2SAT 93
[2021-11-30] MEDS: cloZAPine 25 MG TABLET 12.5 MG PO (08:32)
[2021-11-30] MEDS: Metoprolol Tartrate 25 MG TABLET PO ×2 (08:32→21:50)
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
[2021-11-30 10:30] VITALS: BP 126/71; PULSE 79; RESP 16; O2SAT 93
[2021-11-30 21:30] VITALS: BP 129/99; PULSE 100; TEMP 37.2
[2021-11-30] MEDS: OLANZapine ODT 10 MG TAB.RAPDIS 5 MG TRANSLINGU (21:49)
[2021-11-30] MEDS: traZODone HCL 100 MG TABLET PO (21:50)
[2021-12-01] MEDS: cloZAPine 25 MG TABLET PO (08:31)
[2021-12-01] MEDS: Metoprolol Tartrate 25 MG TABLET PO (08:31)
[2021-12-01 08:51] LABS: Neut%MD 74.8 %; Neutrophils Absolute Auto 6.2 x10*3/uL (2.0-8.3); WBCANC 8.3 X10*3/uL
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
[2021-12-01 18:00] VITALS: BP 138/89; PULSE 96; RESP 16; TEMP 35.7; O2SAT 96
[2021-12-01] MEDS: OLANZapine 10 MG VIAL IM (21:41)
[2021-12-02 08:45] VITALS: BP 143/70; PULSE 89
[2021-12-02] MEDS: Metoprolol Tartrate 25 MG TABLET PO ×2 (08:58→20:09)
[2021-12-02] MEDS: cloZAPine 25 MG TABLET PO (08:59)
[2021-12-02 09:00] VITALS: BP 122/68; PULSE 80; RESP 14; TEMP 36.6; O2SAT 94
--- NOTE | 2021-12-02 15:47 | P.PNPSI_ITS ---
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 however it does have more risk for QTC prolongation and patient has not allowed, until only until recently, any type of lab work/vitals). -EKG on 10/28 shows QTc WNL; data analyst report writer inquired and Nuclear Medicine Supervisor Dr. Garcia says no follow up needed unless patient develops symptoms of dizziness/syncope Trazodone?100mg for sleep; this was prn; will now schedule and see if helps given it's lower risk of side- effects vs Tripletpal -DC Trileptal for now(started on 11/05 for insomnia); although medication worked to help pt sleep, given patients age and that she is currently on 2 antipsychotics (being cross-tapered), do not want to increase risks of side-eff ects; although pt does have frequent insomnia, she is not a danger to self/others and is redirectable; for now will utilize gentle redirection instead of trileptal -hydrocortisone PRN for c/o hemorrhoids -completed course of Augmentin started for tooth abscess -Left heal fissure from cracked skin; bacitracin TID for 4 days: completed fissure healing well -Internal Medicine Specialist discussed patient's treatment with her court affirmed healthcare proxy, Erin, patient's sister.? Internal Medicine Specialist and healthcare proxy reviewed medication options and agreed to trials of various medications listed below.? Erin reports that patient had a very bad tremor on Haldol however in new light of learning patient's past expressed feelings that she would prefer the tremor to losing her mind to psychosis, agrees that Haldol should be restarted and is included in the following options: Haldol: right hand tremor Zyprexa Risperidone: limited benefit; continued tremor Paliperidone: theoretical concern since similar to Risperdal Ziprasidone Perphenazine Fluphenazine Depakote Clozapine (if pt willing to accept blood draws) Past trials: Haldol Dec 100mg qmonthly: did her best however severe tremor Risperdal (sustenna): tremor/akathesia Abilify: not effective Zyprexa: minimally helpful data analyst report writer talked with Stefano Allen, outpt prescriber who says tried haldol (tremor), then risperdal (reported akathesia); trial of abilify ineffective; he says at baseline on meds she is witty, organized, clear minded, though shy. He says she typically finds some reason to get off a medicaiton and then does so Her care is being transfered to [facility] and Dr. Carrizales. I spent minutes with the patient and/or on the patient floor today, greater than?50% of which was spent counseling/coordinating care. Reason for contiued inpatient stay Substantial Risk for: inability to function
[2021-12-02] MEDS: HaloperidoL 1 MG TABLET PO ×2 (16:31→20:06)
[2021-12-02 18:00] VITALS: BP 122/84; PULSE 105; RESP 14; TEMP 37.2; O2SAT 93
[2021-12-02] MEDS: cloZAPine 100 MG, cloZAPine 25 MG 125 MG PO (20:06)
[2021-12-02] MEDS: traZODone HCL 100 MG TABLET PO (20:08)
[2021-12-03] MEDS: Metoprolol Tartrate 25 MG TABLET PO ×2 (09:00→21:56)
[2021-12-03] MEDS: HaloperidoL 1 MG TABLET PO (09:00)
[2021-12-03] MEDS: cloZAPine 25 MG TABLET PO (09:00)
--- NOTE | 2021-12-03 17:20 | HO.PSYCHPN ---
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 Risperidone: limited benefit; continued tremor Paliperidone: theoretical concern since similar to Risperdal Ziprasidone Perphenazine Fluphenazine Depakote Clozapine (if pt willing to accept blood draws) Past trials: Haldol Dec 100mg qmonthly: did her best however severe tremor Risperdal (sustenna): tremor/akathesia Abilify: not effective Zyprexa: minimally helpful [employer] mortgage loan talked with Stefano Allen, outpt prescriber who says tried haldol (tremor), then risperdal (reported akathesia); trial of abilify ineffective; he says at baseline on meds she is witty, organized, clear minded, though shy. He says she typically finds some reason to get off a medicaiton and then does so Her care is being transfered to [facility] and Dr. Carrizales. I spent minutes with the patient and/or on the patient floor today, greater than?50% of which was spent counseling/coordinating care. Reason for contiued inpatient stay Substantial Risk for: inability to function
[2021-12-03 18:00] VITALS: BP 127/60; PULSE 94; RESP 16; TEMP 36.3; O2SAT 93
[2021-12-03 21:45] VITALS: BP 137/77; PULSE 102
[2021-12-03] MEDS: cloZAPine 100 MG, cloZAPine 25 MG 125 MG PO (21:56)
[2021-12-03] MEDS: traZODone HCL 100 MG TABLET PO (21:56)
[2021-12-03] MEDS: HaloperidoL 1 MG TABLET 2 MG PO (21:56)
[2021-12-03] MEDS: Ibuprofen 400 MG TABLET PO (22:05)
[2021-12-04] MEDS: HaloperidoL 1 MG TABLET PO (08:52)
[2021-12-04] MEDS: cloZAPine 25 MG TABLET PO (08:52)
[2021-12-04] MEDS: Metoprolol Tartrate 25 MG TABLET PO ×2 (08:52→20:52)
[2021-12-04 08:54] VITALS: BP 131/75; PULSE 86
--- NOTE | 2021-12-04 17:02 | P.PNPSI_ITS ---
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 patient had a very bad tremor on Haldol however in new light of learning patient's past expressed feelings that she would prefer the tremor to losing her mind to psychosis, agrees that Haldol should be restarted and is included in the following options: Haldol: right hand tremor Zyprexa Risperidone: limited benefit; continued tremor Paliperidone: theoretical concern since similar to Risperdal Ziprasidone Perphenazine Fluphenazine Depakote Clozapine (if pt willing to accept blood draws) Past trials: Haldol Dec 100mg qmonthly: did her best however severe tremor Risperdal (sustenna): tremor/akathesia Abilify: not effective Zyprexa: minimally helpful conventional mortgage underwriter talked with Stefano Allen, outpt prescriber who says tried haldol (tremor), then risperdal (reported akathesia); trial of abilify ineffective; he says at baseline on meds she is witty, organized, clear minded, though shy. He says she typically finds some reason to get off a medicaiton and then does so Her care is being transfered to [facility] and Dr. Carrizales. I spent minutes with the patient and/or on the patient floor today, greater than?50% of which was spent counseling/coordinating care. Reason for contiued inpatient stay Substantial Risk for: inability to function
[2021-12-04 17:44] VITALS: BP 134/67; PULSE 87
[2021-12-04 20:45] VITALS: BP 139/67; PULSE 100; RESP 18; TEMP 36.3; O2SAT 94
[2021-12-04] MEDS: HaloperidoL 1 MG TABLET 2 MG PO (20:52)
[2021-12-04] MEDS: cloZAPine 100 MG, cloZAPine 25 MG 125 MG PO (20:52)
[2021-12-04] MEDS: traZODone HCL 100 MG TABLET PO (20:52)
[2021-12-05 08:50] VITALS: BP 142/78; PULSE 92
[2021-12-05] MEDS: Metoprolol Tartrate 25 MG TABLET PO ×2 (08:53→20:19)
[2021-12-05] MEDS: cloZAPine 25 MG TABLET PO (08:53)
[2021-12-05] MEDS: HaloperidoL 1 MG TABLET PO (08:53)
--- NOTE | 2021-12-05 09:00 | ECG_ITS ---
Test Reason : QTC CHECK Blood Pressure : / mmHG Vent. Rate : 089 BPM Atrial Rate : 089 BPM P-R Int : 170 ms QRS Dur : 148 ms QT Int : 398 ms P-R-T Axes : 008 -69 059 degrees QTc Int : 484 ms Normal sinus rhythm Right bundle branch block Left anterior fascicular block Bifascicular block Abnormal ECG When compared with ECG of 23-NOV-2021 15:11, Premature supraventricular complexes are no longer Present Referred By: Fly Abdul Electronically Signed By:Jose Antonio Loera
--- NOTE | 2021-12-05 16:20 | HO.PSYCHPN ---
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 discussed patient's treatment with her court affirmed healthcare proxy, Erin, patient's sister.? Early Years Teacher and healthcare proxy reviewed medication options and agreed to trials of various medications listed below.? Erin reports that patient had a very bad tremor on Haldol however in new light of learning patient's past expressed feelings that she would prefer the tremor to losing her mind to psychosis, agrees that Haldol should be restarted and is included in the following options: Haldol: right hand tremor Zyprexa Risperidone: limited benefit; continued tremor Paliperidone: theoretical concern since similar to Risperdal Ziprasidone Perphenazine Fluphenazine Depakote Clozapine (if pt willing to accept blood draws) Past trials: Haldol Dec 100mg qmonthly: did her best however severe tremor Risperdal (sustenna): tremor/akathesia Abilify: not effective Zyprexa: minimally helpful mortgage underwriter talked with Stefano Allen, outpt prescriber who says tried haldol (tremor), then risperdal (reported akathesia); trial of abilify ineffective; he says at baseline on meds she is witty, organized, clear minded, though shy. He says she typically finds some reason to get off a medicaiton and then does so Her care is being transfered to [facility] and Dr. Carrizales. I spent minutes with the patient and/or on the patient floor today, greater than?50% of which was spent counseling/coordinating care. Reason for contiued inpatient stay Substantial Risk for: inability to function
[2021-12-05] MEDS: cloZAPine 100 MG, cloZAPine 25 MG 125 MG PO (20:19)
[2021-12-05 20:20] VITALS: BP 144/94; PULSE 96; TEMP 35.8
[2021-12-05] MEDS: HaloperidoL 5 MG TABLET PO (20:20)
[2021-12-05] MEDS: traZODone HCL 100 MG TABLET PO (20:20)
[2021-12-06 08:31] VITALS: BP 125/75; PULSE 72; RESP 16
[2021-12-06] MEDS: cloZAPine 25 MG TABLET PO (08:42)
[2021-12-06] MEDS: HaloperidoL 1 MG TABLET PO (08:42)
[2021-12-06] MEDS: Metoprolol Tartrate 25 MG TABLET PO ×2 (08:42→20:30)
--- NOTE | 2021-12-06 10:36 | HO.PSYCHPN ---
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 to trials of various medications listed below.? Erin reports that patient had a very bad tremor on Haldol however in new light of learning patient's past expressed feelings that she would prefer the tremor to losing her mind to psychosis, agrees that Haldol should be restarted and is included in the following options: Haldol: right hand tremor Zyprexa Risperidone: limited benefit; continued tremor Paliperidone: theoretical concern since similar to Risperdal Ziprasidone Perphenazine Fluphenazine Depakote Clozapine (if pt willing to accept blood draws) Past trials: Haldol Dec 100mg qmonthly: did her best however severe tremor Risperdal (sustenna): tremor/akathesia Abilify: not effective Zyprexa: minimally helpful service writer talked with Stefano Allen, outpt prescriber who says tried haldol (tremor), then risperdal (reported akathesia); trial of abilify ineffective; he says at baseline on meds she is witty, organized, clear minded, though shy. He says she typically finds some reason to get off a medicaiton and then does so Her care is being transfered to [facility] and Dr. Carrizales. I spent minutes with the patient and/or on the patient floor today, greater than?50% of which was spent counseling/coordinating care. Reason for contiued inpatient stay Substantial Risk for: inability to function and rapid decompensation
[2021-12-06 20:15] VITALS: BP 132/67; PULSE 109; TEMP 36.3
[2021-12-06] MEDS: cloZAPine 100 MG, cloZAPine 25 MG 125 MG PO (20:29)
[2021-12-06] MEDS: HaloperidoL 5 MG TABLET PO (20:29)
[2021-12-06] MEDS: traZODone HCL 100 MG TABLET PO (20:29)
[2021-12-06] MEDS: Milk of Magnesia 30 ML ORAL.SUSP PO (21:39)
[2021-12-07 05:37] VITALS: BP 119/79; PULSE 95; RESP 16; TEMP 36.3; O2SAT 95
[2021-12-07] MEDS: HaloperidoL 1 MG TABLET PO (08:23)
[2021-12-07] MEDS: Metoprolol Tartrate 25 MG TABLET PO ×2 (08:24→21:29)
[2021-12-07] MEDS: cloZAPine 25 MG TABLET PO (08:24)
[2021-12-07] MEDS: Docusate Sodium 100 MG CAPSULE PO (13:31)
[2021-12-07 18:00] VITALS: BP 129/72; PULSE 105; RESP 18; TEMP 36.6; O2SAT 98
--- NOTE | 2021-12-07 18:17 | HO.PSYCHPN ---
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 included in the following options: Haldol: right hand tremor Zyprexa Risperidone: limited benefit; continued tremor Paliperidone: theoretical concern since similar to Risperdal Ziprasidone Perphenazine Fluphenazine Depakote Clozapine (if pt willing to accept blood draws) Past trials: Haldol Dec 100mg qmonthly: did her best however severe tremor Risperdal (sustenna): tremor/akathesia Abilify: not effective Zyprexa: minimally helpful writer 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 He says she typically finds some reason to get off a medicaiton and then does so Her care is being transfered to [facility] and Dr. Carrizales. I spent minutes with the patient and/or on the patient floor today, greater than?50% of which was spent counseling/coordinating care. Reason for contiued inpatient stay Substantial Risk for: inability to function and rapid decompensation
[2021-12-07] MEDS: HaloperidoL 5 MG TABLET 7.5 MG PO (21:28)
[2021-12-07] MEDS: cloZAPine 100 MG, cloZAPine 25 MG 125 MG PO (21:28)
[2021-12-07] MEDS: traZODone HCL 100 MG TABLET PO (21:29)
--- NOTE | 2021-12-07 23:27 | PC.NURSE ---
pt states 'I have pain in my private parts , reports red /rash but denies RN to look at it. States its not a big issue, actually it isnt really painful
[2021-12-08] MEDS: Milk of Magnesia 30 ML ORAL.SUSP PO (06:04)
[2021-12-08] MEDS: Metoprolol Tartrate 25 MG TABLET PO ×2 (08:26→21:10)
[2021-12-08] MEDS: HaloperidoL 1 MG TABLET PO (08:27)
[2021-12-08 08:28] LABS: MANUAL DIFF FLAG NO
[2021-12-08 08:30] LABS: Basophils Percent Auto 0.4 % (0-2); Eosinophils Absolute Auto 0.2 X10*3/uL (0.0-0.4); Eosinophils Percent Auto 3.1 % (0-4); Hematocrit 37.7 % (37.0-47.0); Hemoglobin 12.3 g/dl (12.0-16.0); Imm Gran Abs Auto 0.03 X10*3/uL (0.00-0.03); Imm Gran Pct Auto 0.4 % (0.0-0.4); Lymphocytes Absolute Auto 1.4 X10*3/uL (1.2-4.9); Lymphocytes Percent Auto 19.4 % (20-40); Mean Corpuscular HGB Conc 32.6 g/dl (31.0-35.0); Mean Corpuscular Hemoglobin 28.9 pg (27.0-33.0); Mean Corpuscular Volume 88.7 fL (80.0-98.0); Mean Platelet Volume 9.1 fL (9.4-12.3); Monocytes Absolute Auto 0.6 X10*3/uL (0.1-1.2); Monocytes Percent Auto 7.8 % (2-11); Neutrophils Percent Auto 68.9 % (45-73); Platelet Count 212 X10*3/uL (160-400); Red Blood Count 4.25 X10*6/uL (4.20-5.50); Red Cell Distribution Width 13.8 % (11.0-16.0); White Blood Count 7.2 X10*3/uL (4.8-10.8)
[2021-12-08] MEDS: Docusate Sodium 100 MG CAPSULE PO (08:30)
[2021-12-08 09:00] VITALS: BP 134/68; PULSE 95; RESP 14; TEMP 36.6; O2SAT 93
[2021-12-08] MEDS: traZODone HCL 100 MG TABLET PO (21:10)
[2021-12-08] MEDS: HaloperidoL 5 MG TABLET 7.5 MG PO (21:10)
[2021-12-08] MEDS: cloZAPine 100 MG, cloZAPine 25 MG 125 MG PO (21:10)
[2021-12-08 21:14] VITALS: BP 120/74; PULSE 105; RESP 16; TEMP 37.1; O2SAT 92
[2021-12-09] MEDS: Metoprolol Tartrate 25 MG TABLET PO ×2 (08:43→22:19)
[2021-12-09] MEDS: HaloperidoL 1 MG TABLET PO (08:43)
[2021-12-09] MEDS: Docusate Sodium 100 MG CAPSULE PO (08:46)
[2021-12-09 09:00] VITALS: BP 141/76; PULSE 92; RESP 14; TEMP 36.6; O2SAT 94
[2021-12-09] MEDS: Magnesium Citrate 300 ML SOLUTION PO (12:21)
--- NOTE | 2021-12-09 14:02 | P.PNPSI_ITS ---
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 good? options as there is some concern that patient had akathisia on risperidone; other typical antipsychotics may also produce tremor like Haldol; Thorazine is an option however it no longer comes in an IM form and? does not have a long-acting formula; ziprasidone remains an option however it does have more risk for QTC prolongation and patient has not allowed, until only until recently, any type of lab work/vitals). -EKG on 10/28 shows QTc WNL; underwriter solicitation director inquired and Deflector Operator Dr. Garcia says no follow up needed unless patient develops symptoms of dizziness/syncope Trazodone?100mg for sleep; this was prn; will now schedule and see if helps given it's lower risk of side- effects vs Tripletpal -DC Trileptal for now(started on 11/05 for insomnia); although medication worked to help pt sleep, given patients age and that she is currently on 2 antipsychotics (being cross-tapered), do not want to increase risks of side- effects; although pt does have frequent insomnia, she is not a danger to self/others and is redirectable; for now will utilize gentle redirection instead of trileptal -hydrocortisone PRN for c/o hemorrhoids -completed course of Augmentin started for tooth abscess -Left heal fissure from cracked skin; bacitracin TID for 4 days: completed fissure healing well -Canoe Inspector discussed patient's treatment with her court affirmed healthcare proxy, Erin, patient's sister.? Canoe Inspector and healthcare proxy reviewed medication options and agreed to trials of various medications listed below.? Erin reports that patient had a very bad tremor on Haldol however in new light of learning patient's past expressed feelings that she would prefer the tremor to losing her mind to psychosis, agrees that Haldol should be restarted and is included in the following options: Haldol: right hand tremor Zyprexa Risperidone: limited benefit; continued tremor Paliperidone: theoretical concern since similar to Risperdal Ziprasidone Perphenazine Fluphenazine Depakote Clozapine (if pt willing to accept blood draws) Past trials: Haldol Dec 100mg qmonthly: did her best however severe tremor Risperdal (sustenna): tremor/akathesia Abilify: not effective Zyprexa: minimally helpful underwriter solicitation director talked with Stefano Allen, outpt prescriber who says tried haldol (tremor), then risperdal (reported akathesia); trial of abilify ineffective; he says at baseline on meds she is witty, organized, clear minded, though shy. He says she typically finds some reason to get off a medicaiton and then does so Her care is being transfered to [facility] and Dr. Carrizales. I spent minutes with the patient and/or on the patient floor today, gr eater than?50% of which was spent counseling/coordinating care. Reason for contiued inpatient stay Substantial Risk for: inability to function
[2021-12-09] MEDS: Milk of Magnesia 30 ML ORAL.SUSP PO (22:16)
[2021-12-09] MEDS: HaloperidoL 5 MG TABLET 7.5 MG PO (22:17)
[2021-12-09] MEDS: bisacodyL 5 MG TABLET.DR 10 MG PO (22:18)
[2021-12-09] MEDS: cloZAPine 100 MG, cloZAPine 25 MG 125 MG PO (22:18)
[2021-12-09] MEDS: traZODone HCL 100 MG TABLET PO (22:18)
[2021-12-09 22:20] VITALS: BP 123/80; PULSE 112; RESP 16; TEMP 36.5; O2SAT 98
--- NOTE | 2021-12-10 02:03 | PC.NURSE ---
Pt awake at 0200. Stated she was extremely constipated. She had rec'd MOM and Mag Citrate 300ml today ONCE today. Gave pt warm prune juice. Will monitor throughout shift.
[2021-12-10 07:09] VITALS: BP 126/74; PULSE 100; RESP 16; TEMP 36.3; O2SAT 95
[2021-12-10] MEDS: Metoprolol Tartrate 25 MG TABLET PO ×2 (08:32→20:41)
--- NOTE | 2021-12-10 12:44 | HO.PSYCHPN ---
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 lower risk of side-effects vs Tripletpal -DC Trileptal for now(started on 11/05 for insomnia); although medication worked to help pt sleep, given patients age and that she is currently on 2 antipsychotics (being cross-tapered), do not want to increase risks of side-effects; although pt does have frequent insomnia, she is not a danger to self/others and is redirectable; for now will utilize gentle redirection instead of trileptal -hydrocortisone PRN for c/o hemorrhoids -completed course of Augmentin started for tooth abscess -Left heal fissure from cracked skin; bacitracin TID for 4 days: completed fissure healing well -Assistant Maintenance Manager discussed patient's treatment with her court affirmed healthcare proxy, Erin, patient's sister.? Assistant Maintenance Manager and healthcare proxy reviewed medication options and agreed to trials of various medications listed below.? Erin reports that patient had a very bad tremor on Haldol however in new light of learning patient's past expressed feelings that she would prefer the tremor to losing her mind to psychosis, agrees that Haldol should be restarted and is included in the following options: Haldol: right hand tremor Zyprexa Risperidone: limited benefit; continued tremor Paliperidone: theoretical concern since similar to Risperdal Ziprasidone Perphenazine Fluphenazine Depakote Clozapine (if pt willing to accept blood draws) Past trials: Haldol Dec 100mg qmonthly: did her best however severe tremor Risperdal (sustenna): tremor/akathesia Abilify: not effective Zyprexa: minimally helpful customs entry writer talked with Stefano Allen, outpt prescriber who says tried haldol (tremor), then risperdal (reported akathesia); trial of abilify ineffective; he says at baseline on meds she is witty, organized, clear minded, though shy. He says she typically finds some reason to get off a medicaiton and then does so Her care is being transfered to [facility] and Dr. Carrizales. 12/10/21 - No changes to the above plan I spent minutes with the patient and/or on the patient floor today, greater than?50% of which was spent counseling/coordinating care. Patient educated on: medication risk/benefits Informed Consent: further education needed Reason for contiued inpatient stay Substantial Risk for: rapid decompensation
[2021-12-10 18:00] VITALS: BP 135/69; PULSE 55
[2021-12-10] MEDS: cloZAPine 100 MG, cloZAPine 25 MG 125 MG PO (20:37)
[2021-12-10] MEDS: traZODone HCL 100 MG TABLET PO (20:37)
[2021-12-10] MEDS: HaloperidoL 5 MG TABLET 10 MG PO (20:37)
[2021-12-10] MEDS: traZODone HCL 50 MG TABLET PO (20:38)
[2021-12-11] MEDS: Metoprolol Tartrate 25 MG TABLET PO ×2 (08:46→20:37)
[2021-12-11] MEDS: Milk of Magnesia 30 ML ORAL.SUSP PO (18:07)
--- NOTE | 2021-12-11 19:04 | P.PNPSI_ITS ---
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 on 11/05 for insomnia); although medication worked to help pt sleep, given patients age and that she is currently on 2 antip sychotics (being cross-tapered), do not want to increase risks of side-effects; although pt does have frequent insomnia, she is not a danger to self/others and is redirectable; for now will utilize gentle redirection instead of trileptal -hydrocortisone PRN for c/o hemorrhoids -completed course of Augmentin started for tooth abscess -Left heal fissure from cracked skin; bacitracin TID for 4 days: completed fissure healing well -Quality Assurance Tester discussed patient's treatment with her court affirmed healthcare proxy, Erin, patient's sister.? Quality Assurance Tester and healthcare proxy reviewed medication options and agreed to trials of various medications listed below.? Erin reports that patient had a very bad tremor on Haldol however in new light of learning patient's past expressed feelings that she would prefer the tremor to losing her mind to psychosis, agrees that Haldol should be restarted and is i ncluded in the following options: Haldol: right hand tremor Zyprexa Risperidone: limited benefit; continued tremor Paliperidone: theoretical concern since similar to Risperdal Ziprasidone Perphenazine Fluphenazine Depakote Clozapine (if pt willing to accept blood draws) Past trials: Haldol Dec 100mg qmonthly: did her best however severe tremor Risperdal (sustenna): tremor/akathesia Abilify: not effective Zyprexa: minimally helpful television writer talked with Stefano Allen, outpt prescriber who says tried haldol (tremor), then risperdal (reported akathesia); trial of abilify ineffective; he says at baseline on meds she is witty, organized, clear minded, though shy. He says she typically finds some reason to get off a medicaiton and then does so Her care is being transfered to [facility] and Dr. Carrizales. 12/10/21 - No changes to the above plan 12/11/21 - CT current treatment plan I spent minutes with the patient and/or on the patient floor today, greater than?50% of which was spent counseling/coordinating care. Patient educated on: medication risk/benefits Reason for contiued inpatient stay Substantial Risk for: rapid decompensation
[2021-12-11 19:16] VITALS: BP 155/69; PULSE 106; RESP 18; TEMP 37.1; O2SAT 94
[2021-12-11] MEDS: traZODone HCL 100 MG TABLET PO (20:36)
[2021-12-11] MEDS: HaloperidoL 5 MG TABLET 10 MG PO (20:37)
[2021-12-11] MEDS: bisacodyL 5 MG TABLET.DR 10 MG PO (20:37)
[2021-12-11] MEDS: cloZAPine 100 MG, cloZAPine 25 MG 125 MG PO (20:37)
[2021-12-12] MEDS: Metoprolol Tartrate 25 MG TABLET PO ×2 (08:28→21:53)
[2021-12-12 09:00] VITALS: BP 122/70; PULSE 68; RESP 14; TEMP 36.6; O2SAT 94
--- NOTE | 2021-12-12 13:34 | P.PNPSI_ITS ---
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 risks of side- effects; although pt does have frequent insomnia, she is not a danger to self/others and is redirectable; for now will utilize gentle redirection instead of trileptal -hydrocortisone PRN for c/o hemorrhoids -completed course of Augmentin started for tooth abscess -Left heal fissure from cracked skin; bacitracin TID for 4 days: completed fissure healing well -Sales Apprentice discussed patient's treatment with her court affirmed healthcare proxy, Erin, patient's sister.? Sales Apprentice and healthcare proxy reviewed medication options and agreed to trials of various medications listed below.? Erin reports that patient had a very bad tremor on Haldol however in new light of learning patient's past expressed feelings that she would prefer the tremor to losing her mind to psychosis, agrees that Haldol should be restarted and is included in the following options: Haldol: right hand tremor Zyprexa Risperidone: limited benefit; continued tremor Paliperidone: theoretical concern since similar to Risperdal Ziprasidone Perphenazine Fluphenazine Depakote Clozapine (if pt willing to accept blood draws) Past trials: Haldol Dec 100mg qmonthly: did her best however severe tremor Risperdal (sustenna): tremor/akathesia Abilify: not effective Zyprexa: minimally helpful com writer talked with Stefano Allen, outpt prescriber who says tried haldol (tremor), then risperdal (reported akathesia); trial of abilify ineffective; he says at baseline on meds she is witty, organized, clear minded, though shy. He says she typically finds some reason to get off a medicaiton and then does so Her care is being transfered to [facility] and Dr. Carrizales. 12/10/21 - No changes to the above plan 12/11/21 - CT current treatment plan I spent minutes with the patient and/or on the patient floor today, greater than?50% of which was spent counseling/coordinating care. Reason for contiued inpatient stay Substantial Risk for: inability to function
[2021-12-12 17:30] VITALS: BP 142/68; PULSE 97; TEMP 36.3; O2SAT 95
[2021-12-12] MEDS: HaloperidoL 5 MG TABLET 10 MG PO (21:53)
[2021-12-12] MEDS: cloZAPine 100 MG, cloZAPine 25 MG 125 MG PO (21:53)
[2021-12-12] MEDS: bisacodyL 5 MG TABLET.DR 10 MG PO (21:54)
[2021-12-12] MEDS: traZODone HCL 100 MG TABLET PO (21:54)
--- NOTE | 2021-12-13 10:38 | HO.PSYCHPN ---
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 will now schedule and see if helps given it's lower risk of side-effects vs Tripletpal -DC Trileptal for now(started on 11/05 for insomnia); although medication worked to help pt sleep, given patients age and that she is currently on 2 antipsychotics (being cross-tapered), do not want to increase risks of side-effects; although pt does have frequent insomnia, she is not a danger to self/others and is redirectable; for now will utilize gentle redirection instead of trileptal -hydrocortisone PRN for c/o hemorrhoids -completed course of Augmentin started for tooth abscess -Left heal fissure from cracked skin; bacitracin TID for 4 days: completed fissure healing well -Industrial Engineering Manager discussed patient's treatment with her court affirmed healthcare proxy, Erin, patient's sister.? Industrial Engineering Manager and healthcare proxy reviewed medication options and agreed to trials of various medications listed below.? Erin reports that patient had a very bad tremor on Haldol however in new light of learning patient's past expressed feelings that she would prefer the tremor to losing her mind to psychosis, agrees that Haldol should be restarted and is included in the following options: Haldol: right hand tremor Zyprexa Risperidone: limited benefit; continued tremor Paliperidone: theoretical concern since similar to Risperdal Ziprasidone Perphenazine Fluphenazine Depakote Clozapine (if pt willing to accept blood draws) Past trials: Haldol Dec 100mg qmonthly: did her best however severe tremor Risperdal (sustenna): tremor/akathesia Abilify: not effective Zyprexa: minimally helpful show card writer talked with Stefano Allen, outpt prescriber who says tried haldol (tremor), then risperdal (reported akathesia); trial of abilify ineffective; he says at baseline on meds she is witty, organized, clear minded, though shy. He says she typically finds some reason to get off a medicaiton and then does so Her care is being transfered to [facility] and Dr. Carrizales. 12/10/21 - No changes to the above plan 12/11/21 - CT current treatment plan I spent minutes with the patient and/or on the patient floor today, greater than?50% of which was spent counseling/coordinating care. Reason for contiued inpatient stay Substantial Risk for: inability to function
[2021-12-13 12:00] VITALS: BP 135/74; PULSE 90
[2021-12-13] MEDS: Metoprolol Tartrate 25 MG TABLET PO ×2 (12:13→22:24)
[2021-12-13 18:00] VITALS: BP 136/72; PULSE 93; TEMP 36.2; O2SAT 95
[2021-12-13] MEDS: cloZAPine 100 MG, cloZAPine 25 MG 125 MG PO (22:23)
[2021-12-13] MEDS: traZODone HCL 100 MG TABLET PO (22:24)
[2021-12-13] MEDS: bisacodyL 5 MG TABLET.DR 10 MG PO (22:24)
[2021-12-13] MEDS: HaloperidoL 5 MG TABLET 10 MG PO (22:24)
[2021-12-14 08:38] VITALS: BP 139/68; PULSE 92; RESP 16
[2021-12-14] MEDS: Metoprolol Tartrate 25 MG TABLET PO ×2 (08:40→22:59)
[2021-12-14 18:00] VITALS: BP 127/71; PULSE 98; RESP 16; TEMP 36.6; O2SAT 94
[2021-12-14 22:45] VITALS: BP 134/71; PULSE 93
[2021-12-14] MEDS: cloZAPine 100 MG TABLET PO (22:58)
[2021-12-14] MEDS: bisacodyL 5 MG TABLET.DR 10 MG PO (22:58)
[2021-12-14] MEDS: HaloperidoL 5 MG TABLET 10 MG PO (22:59)
[2021-12-14] MEDS: traZODone HCL 100 MG TABLET PO (22:59)
[2021-12-15] MEDS: Metoprolol Tartrate 25 MG TABLET PO ×2 (08:10→21:07)
[2021-12-15 08:24] VITALS: BP 112/79; PULSE 100; RESP 14; TEMP 36.8; O2SAT 96
[2021-12-15 08:35] LABS: MANUAL DIFF FLAG NO
[2021-12-15 08:42] LABS: Basophils Absolute Auto 0.1 X10*3/uL (0.0-0.2); Basophils Percent Auto 0.8 % (0-2); Eosinophils Absolute Auto 0.2 X10*3/uL (0.0-0.4); Eosinophils Percent Auto 2.8 % (0-4); Hematocrit 44.4 % (37.0-47.0); Hemoglobin 14.1 g/dl (12.0-16.0); Imm Gran Abs Auto 0.05 X10*3/uL (0.00-0.03); Imm Gran Pct Auto 0.6 % (0.0-0.4); Lymphocytes Absolute Auto 1.5 X10*3/uL (1.2-4.9); Lymphocytes Percent Auto 19.2 % (20-40); Mean Corpuscular HGB Conc 31.8 g/dl (31.0-35.0); Mean Corpuscular Hemoglobin 28.9 pg (27.0-33.0); Monocytes Absolute Auto 0.6 X10*3/uL (0.1-1.2); Monocytes Percent Auto 7.5 % (2-11); Neutrophils Absolute Auto 5.4 x10*3/uL (2.0-8.3); Neutrophils Percent Auto 69.1 % (45-73); Platelet Count 239 X10*3/uL (160-400); Red Blood Count 4.88 X10*6/uL (4.20-5.50); Red Cell Distribution Width 14.2 % (11.0-16.0); White Blood Count 7.8 X10*3/uL (4.8-10.8)
--- NOTE | 2021-12-15 12:39 | P.PNPSI_ITS ---
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 self/others and is redirectable; for now will utilize gentle redirection instead of trileptal -hydrocortisone PRN for c/o hemorrhoids -completed course of Augmentin started for tooth abscess -Left heal fissure from cracked skin; bacitracin TID for 4 days: completed fissure healing well -Equipment Maintenance Technician discussed patient's treatment with her court affirmed healthcare proxy, Erin, patient's sister.? Equipment Maintenance Technician and healthcare proxy reviewed medication options and agreed to trials of various medications listed below.? Erin reports that patient had a very bad tremor on Haldol however in new light of learning patient's past expressed feelings that she would prefer the tremor to losing her mind to psychosis, agrees that Haldol should be restarted and is included in the following options: Haldol: right hand tremor Zyprexa Risperidone: limited benefit; continued tremor Paliperidone: theoretical concern since similar to Risperdal Ziprasidone Perphenazine Fluphenazine Depakote Clozapine (if pt willing to accept blood draws) Past trials: Haldol Dec 100mg qmonthly: did her best however severe tremor Risperdal (sustenna): tremor/akathesia Abilify: not effective Zyprexa: minimally helpful commercial insurance underwriter talked with Stefano Allen, outpt prescriber who says tried haldol (tremor), then risperdal (reported akathesia); trial of abilify ineffective; he says at baseline on meds she is witty, organized, clear minded, though shy. He says she typically finds some reason to get off a medicaiton and then does so Her care is being transfered to [facility] and Dr. Carrizales. I spent minutes with the patient and/or on the patient floor today, greater than?50% of which was spent counseling/coordinating care. Reason for contiued inpatient stay Substantial Risk for: inability to function
--- NOTE | 2021-12-15 17:09 | HO.PSYCHPN ---
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 sleep, given patients age and that she is currently on 2 antipsychotics (being cross-tapered), do not want to increase risks of side-effects; although pt does have frequent insomnia, she is not a danger to self/others and is redirectable; for now will utilize gentle redirection instead of trileptal -hydrocortisone PRN for c/o hemorrhoids -completed course of Augmentin started for tooth abscess -Left heal fissure from cracked skin; bacitracin TID for 4 days: completed fissure healing well -Training Mgr discussed patient's treatment with her court affirmed healthcare proxy, Erin, patient's sister.? Training Mgr and healthcare proxy reviewed medication options and agreed to trials of various medications listed below.? Erin reports that patient had a very bad tremor on Haldol however in new light of learning patient's past expressed feelings that she would prefer the tremor to losing her mind to psychosis, agrees that Haldol should be restarted and is included in the following options: Haldol: right hand tremor Zyprexa Risperidone: limited benefit; continued tremor Paliperidone: theoretical concern since similar to Risperdal Ziprasidone Perphenazine Fluphenazine Depakote Clozapine (if pt willing to accept blood draws) Past trials: Haldol Dec 100mg qmonthly: did her best however severe tremor Risperdal (sustenna): tremor/akathesia Abilify: not effective Zyprexa: minimally helpful magnetic tape typewriter operator talked with Stefano Allen, outpt prescriber who says tried haldol (tremor), then risperdal (reported akathesia); trial of abilify ineffective; he says at baseline on meds she is witty, organized, clear minded, though shy. He says she typically finds some reason to get off a medicaiton and then does so Her care is being transfered to [facility] and Dr. Carrizales. I spent minutes with the patient and/or on the patient floor today, greater than?50% of which was spent counseling/coordinating care. Reason for contiued inpatient stay Substantial Risk for: inability to function and rapid decompensation
[2021-12-15] MEDS: traZODone HCL 100 MG TABLET PO (21:05)
[2021-12-15] MEDS: HaloperidoL 5 MG TABLET 10 MG PO (21:07)
[2021-12-15] MEDS: cloZAPine 100 MG TABLET PO (21:07)
[2021-12-15] MEDS: bisacodyL 5 MG TABLET.DR 10 MG PO (21:07)
[2021-12-15 21:10] VITALS: BP 116/70; PULSE 104; TEMP 36.9
[2021-12-16 07:12] VITALS: BP 118/69; PULSE 68; TEMP 36.6; O2SAT 98
[2021-12-16] MEDS: Metoprolol Tartrate 25 MG TABLET PO ×2 (08:46→20:38)
[2021-12-16 09:00] VITALS: BP 133/82; PULSE 67; RESP 14; TEMP 36.8; O2SAT 93
--- NOTE | 2021-12-16 18:12 | HO.PSYCHPN ---
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 Augmentin started for tooth abscess -Left heal fissure from cracked skin; bacitracin TID for 4 days: completed fissure healing well -Freight Service Inspector discussed patient's treatment with her court affirmed healthcare proxy, Erin, patient's sister.? Freight Service Inspector and healthcare proxy reviewed medication options and agreed to trials of various medications listed below.? Erin reports that patient had a very bad tremor on Haldol however in new light of learning patient's past expressed feelings that she would prefer the tremor to losing her mind to psychosis, agrees that Haldol should be restarted and is included in the following options: Haldol: right hand tremor Zyprexa Risperidone: limited benefit; continued tremor Paliperidone: theoretical concern since similar to Risperdal Ziprasidone Perphenazine Fluphenazine Depakote Clozapine (if pt willing to accept blood draws) Past trials: Haldol Dec 100mg qmonthly: did her best however severe tremor Risperdal (sustenna): tremor/akathesia Abilify: not effective Zyprexa: minimally helpful conventional underwriter talked with Stefano Allen, outpt prescriber who says tried haldol (tremor), then risperdal (reported akathesia); trial of abilify ineffective; he says at baseline on meds she is witty, organized, clear minded, though shy. He says she typically finds some reason to get off a medicaiton and then does so Her care is being transfered to [facility] and Dr. Carrizales. I spent minutes with the patient and/or on the patient floor today, greater than?50% of which was spent counseling/coordinating care. Reason for contiued inpatient stay Substantial Risk for: inability to function and rapid decompensation
[2021-12-16 18:30] VITALS: BP 104/50; PULSE 92; RESP 16; TEMP 36.6; O2SAT 92
[2021-12-16] MEDS: HaloperidoL 5 MG TABLET 10 MG PO (20:38)
[2021-12-16] MEDS: cloZAPine 100 MG TABLET PO (20:38)
[2021-12-16] MEDS: traZODone HCL 100 MG TABLET PO (20:38)
[2021-12-16 20:42] VITALS: BP 114/72; PULSE 98; O2SAT 96
[2021-12-17 08:45] VITALS: BP 130/67; PULSE 91
[2021-12-17] MEDS: Metoprolol Tartrate 25 MG TABLET PO ×2 (09:23→22:52)
[2021-12-17 22:45] VITALS: BP 107/59; PULSE 91; TEMP 35.8; O2SAT 94
[2021-12-17] MEDS: HaloperidoL 5 MG TABLET 10 MG PO (22:51)
[2021-12-17] MEDS: cloZAPine 100 MG TABLET PO (22:52)
[2021-12-17] MEDS: bisacodyL 5 MG TABLET.DR 10 MG PO (22:52)
[2021-12-17] MEDS: traZODone HCL 100 MG TABLET PO (22:52)
--- NOTE | 2021-12-17 23:49 | P.PNPSI_ITS ---
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 increase risks of side- effects; although pt does have frequent insomnia, she is not a danger to self/others and is redirectable; for now will utilize gentle redirection instead of trileptal -hydrocortisone PRN for c/o hemorrhoids -completed course of Augmentin started for tooth abscess -Left heal fissure from cracked skin; bacitracin TID for 4 days: completed fissure healing well -Community Health Advisor discussed patient's treatment with her court affirmed healthcare proxy, Erin, patient's sister.? Community Health Advisor and healthcare proxy reviewed medication options and agreed to trials of various medications listed below.? Erin re ports that patient had a very bad tremor on Haldol however in new light of learning patient's past expressed feelings that she would prefer the tremor to losing her mind to psychosis, agrees that Haldol should be restarted and is included in the following options: Haldol: right hand tremor Zyprexa Risperidone: limited benefit; continued tremor Paliperidone: theoretical concern since similar to Risperdal Ziprasidone Perphenazine Fluphenazine Depakote Clozapine (if pt willing to accept blood draws) Past trials: Haldol Dec 100mg qmonthly: did her best however severe tremor Risperdal (sustenna): tremor/akathesia Abilify: not effective Zyprexa: minimally helpful journalists and other writers talked with Stefano Allen, outpt prescriber who says tried haldol (tremor), then risperdal (reported akathesia); trial of abilify ineffective; he says at baseline on meds she is witty, organized, clear minded, though shy. He says she typically finds some reason to get off a medicaiton and then does so Her care is being transfered to [facility] and Dr. Carrizales. I spent minutes with the patient and/or on the patient floor today, greater than?50% of which was spent counseling/coordinating care. Reason for contiued inpatient stay Substantial Risk for: inability to function
[2021-12-18 08:30] VITALS: BP 153/84; PULSE 102; TEMP 36.8
[2021-12-18] MEDS: Metoprolol Tartrate 25 MG TABLET PO ×2 (08:52→20:43)
--- NOTE | 2021-12-18 14:18 | HO.PSYCHPN ---
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 does have frequent insomnia, she is not a danger to self/others and is redirectable; for now will utilize gentle redirection instead of trileptal -hydrocortisone PRN for c/o hemorrhoids -completed course of Augmentin started for tooth abscess -Left heal fissure from cracked skin; bacitracin TID for 4 days: completed fissure healing well -Chief Innovation Officer discussed patient's treatment with her court affirmed healthcare proxy, Erin, patient's sister.? Chief Innovation Officer and healthcare proxy reviewed medication options and agreed to trials of various medications listed below.? Erin reports that patient had a very bad tremor on Haldol however in new light of learning patient's past expressed feelings that she would prefer the tremor to losing her mind to psychosis, agrees that Haldol should be restarted and is included in the following options: Haldol: right hand tremor Zyprexa Risperidone: limited benefit; continued tremor Paliperidone: theoretical concern since similar to Risperdal Ziprasidone Perphenazine Fluphenazine Depakote Clozapine (if pt willing to accept blood draws) Past trials: Haldol Dec 100mg qmonthly: did her best however severe tremor Risperdal (sustenna): tremor/akathesia Abilify: not effective Zyprexa: minimally helpful proposal lead writer talked with Stefano Allen, outpt prescriber who says tried haldol (tremor), then risperdal (reported akathesia); trial of abilify ineffective; he says at baseline on meds she is witty, organized, clear minded, though shy. He says she typically finds some reason to get off a medicaiton and then does so Her care is being transfered to [facility] and Dr. Carrizales. I spent minutes with the patient and/or on the patient floor today, greater than?50% of which was spent counseling/coordinating care. Reason for contiued inpatient stay Substantial Risk for: harm to others
[2021-12-18 18:00] VITALS: BP 139/83; PULSE 94
[2021-12-18 19:58] VITALS: BP 154/76; PULSE 103; TEMP 36.9; O2SAT 94
[2021-12-18] MEDS: bisacodyL 5 MG TABLET.DR 10 MG PO (20:43)
[2021-12-18] MEDS: traZODone HCL 100 MG TABLET PO (20:43)
[2021-12-18] MEDS: HaloperidoL 5 MG TABLET 10 MG PO (20:43)
[2021-12-18] MEDS: cloZAPine 100 MG TABLET PO (20:44)
[2021-12-18 20:54] VITALS: BP 152/74; PULSE 102
[2021-12-19] MEDS: Metoprolol Tartrate 25 MG TABLET PO ×2 (08:40→20:04)
[2021-12-19 08:42] VITALS: PULSE 91; RESP 14; TEMP 36.7; O2SAT 93
--- NOTE | 2021-12-19 16:31 | P.PNPSI_ITS ---
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 Director and healthcare proxy reviewed medication options and agreed to trials of various medications listed below.? Erin reports that patient had a very bad tremor on Haldol however in new light of learning patient's past expressed feelings that she would prefer the tremor to losing her mind to psychosis, agrees that Haldol should be restarted and is included in the following options: Haldol: right hand tremor Zyprexa Risperidone: limited benefit; continued tremor Paliperidone: theoretical concern since similar to Risperdal Ziprasidone Perphenazine Fluphenazine Depakote Clozapine (if pt willing to accept blood draws) Past trials: Haldol Dec 100mg qmonthly: did her best however severe tremor Risperdal (sustenna): tremor/akathesia Abilify: not effective Zyprexa: minimally helpful insurance underwriter talked with Stefano Allen, outpt prescriber who says tried haldol (tremor), then risperdal (reported akathesia); trial of abilify ineffective; he says at baseline on meds she is witty, organized, clear minded, though shy. He says she typically finds some reason to get off a medicaiton and then does so Her care is being transfered to [facility] and Dr. Carrizales. I spent minutes with the patient and/or on the patient floor today, greater than?50% of which was spent counseling/coordinating care. Reason for contiued inpatient stay Substantial Risk for: inability to function and rapid decompensation
[2021-12-19 18:00] VITALS: BP 124/67; PULSE 74; TEMP 36.4; O2SAT 94
[2021-12-19] MEDS: traZODone HCL 100 MG TABLET PO (20:04)
[2021-12-19] MEDS: bisacodyL 5 MG TABLET.DR 10 MG PO (20:04)
[2021-12-19] MEDS: cloZAPine 100 MG TABLET PO (20:04)
[2021-12-19] MEDS: HaloperidoL 5 MG TABLET 10 MG PO (20:04)
[2021-12-20] MEDS: Metoprolol Tartrate 25 MG TABLET PO ×2 (07:53→20:17)
[2021-12-20 07:54] VITALS: BP 134/73; PULSE 87; TEMP 35.9; O2SAT 93
[2021-12-20 20:05] VITALS: BP 127/81; PULSE 97; TEMP 35.9; O2SAT 94
[2021-12-20] MEDS: HaloperidoL 5 MG TABLET 10 MG PO (20:17)
[2021-12-20] MEDS: traZODone HCL 100 MG TABLET PO (20:17)
[2021-12-20] MEDS: bisacodyL 5 MG TABLET.DR 10 MG PO (20:17)
[2021-12-20] MEDS: cloZAPine 100 MG TABLET PO (20:17)
--- NOTE | 2021-12-20 22:22 | HO.PSYCHPN ---
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 Ziprasidone Perphenazine Fluphenazine Depakote Clozapine (if pt willing to accept blood draws) Past trials: Haldol Dec 100mg qmonthly: did her best however severe tremor Risperdal (sustenna): tremor/akathesia Abilify: not effective Zyprexa: minimally helpful information writer talked with Stefano Allen, outpt prescriber who says tried haldol (tremor), then risperdal (reported akathesia); trial of abilify ineffective; he says at baseline on meds she is witty, organized, clear minded, though shy. He says she typically finds some reason to get off a medicaiton and then does so Her care is being transfered to [facility] and Dr. Carrizales. I spent minutes with the patient and/or on the patient floor today, greater than?50% of which was spent counseling/coordinating care. Reason for contiued inpatient stay Substantial Risk for: inability to function and rapid decompensation
[2021-12-21 08:11] VITALS: BP 139/67; PULSE 85; TEMP 36.1; O2SAT 93
[2021-12-21] MEDS: Metoprolol Tartrate 25 MG TABLET PO ×2 (08:37→20:42)
[2021-12-21 13:00] VITALS: BP 136/63; PULSE 91; TEMP 36.2; O2SAT 94
--- NOTE | 2021-12-21 14:29 | P.PNPSI_ITS ---
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 is included in the following options: Haldol: right hand tremor Zyprexa Risperidone: limited benefit; continued tremor Paliperidone: theoretical concern since similar to Risperdal Ziprasidone Perphenazine Fluphenazine Depakote Clozapine (if pt willing to accept blood draws) Past trials: Haldol Dec 100mg qmonthly: did her best however severe tremor Risperdal (sustenna): tremor/akathesia Abilify: not effective Zyprexa: minimally helpful contract technical writer talked with [facility] prescriber who says tried haldol (tremor), then risperdal (reported akathesia); trial of abilify ineffective; he says at baseline on meds she is witty, organized, clear minded, though shy. He says she typically finds some reason to get off a medicaiton and then does so Her care is being transfered to [facility] and Dr. Carrizales. I spent minutes with the patient and/or on the patient floor today, gre ater than?50% of which was spent counseling/coordinating care. Reason for contiued inpatient stay Substantial Risk for: inability to function and rapid decompensation
[2021-12-21] MEDS: cloZAPine 100 MG TABLET PO (17:06)
[2021-12-21] MEDS: HaloperidoL 5 MG TABLET 10 MG PO (20:41)
[2021-12-21] MEDS: traZODone HCL 100 MG TABLET PO (20:42)
[2021-12-21] MEDS: bisacodyL 5 MG TABLET.DR 10 MG PO (20:42)
[2021-12-22] MEDS: Metoprolol Tartrate 25 MG TABLET PO ×2 (08:10→20:51)
[2021-12-22 08:21] LABS: MANUAL DIFF FLAG NO
[2021-12-22 08:27] LABS: Basophils Percent Auto 0.4 % (0-2); Eosinophils Absolute Auto 0.2 X10*3/uL (0.0-0.4); Eosinophils Percent Auto 2.2 % (0-4); Hemoglobin 12.5 g/dl (12.0-16.0); Imm Gran Abs Auto 0.04 X10*3/uL (0.00-0.03); Imm Gran Pct Auto 0.5 % (0.0-0.4); Lymphocytes Absolute Auto 1.3 X10*3/uL (1.2-4.9); Mean Corpuscular HGB Conc 32.9 g/dl (31.0-35.0); Mean Corpuscular Hemoglobin 29.1 pg (27.0-33.0); Mean Corpuscular Volume 88.4 fL (80.0-98.0); Monocytes Absolute Auto 0.7 X10*3/uL (0.1-1.2); Monocytes Percent Auto 9.1 % (2-11); Neut%MD 72.2 %; Neutrophils Absolute Auto 5.5 x10*3/uL (2.0-8.3); Neutrophils Absolute Auto 5.6 x10*3/uL (2.0-8.3); Neutrophils Percent Auto 70.8 % (45-73); Platelet Count 213 X10*3/uL (160-400); Red Cell Distribution Width 14.4 % (11.0-16.0); WBCANC 7.8 X10*3/uL; White Blood Count 7.8 X10*3/uL (4.8-10.8)
[2021-12-22 09:00] VITALS: BP 124/82; PULSE 97; RESP 14; TEMP 36.7; O2SAT 93
[2021-12-22 13:00] VITALS: BP 120/88; PULSE 96; RESP 14; TEMP 36.6; O2SAT 94
--- NOTE | 2021-12-22 16:50 | HO.PSYCHPN ---
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 want to increase risks of side-effects; although pt does have frequent insomnia, she is not a danger to self/others and is redirectable; for now will utilize gentle redirection instead of trileptal -hydrocortisone PRN for c/o hemorrhoids -completed course of Augmentin started for tooth abscess -Left heal fissure from cracked skin; bacitracin TID for 4 days: completed fissure healing well -[employer] discussed patient's treatment with her court affirmed healthcare proxy, Erin, patient's sister.? [employer] and healthcare proxy reviewed medication options and agreed to trials of various medications listed below.? Erin reports that patient had a very bad tremor on Haldol however in new light of learning patient's past expressed feelings that she would prefer the tremor to losing her mind to psychosis, agrees that Haldol should be restarted and is included in the following options: Haldol: right hand tremor Zyprexa Risperidone: limited benefit; continued tremor Paliperidone: theoretical concern since similar to Risperdal Ziprasidone Perphenazine Fluphenazine Depakote Clozapine (if pt willing to accept blood draws) Past trials: Haldol Dec 100mg qmonthly: did her best however severe tremor Risperdal (sustenna): tremor/akathesia Abilify: not effective Zyprexa: minimally helpful commercial insurance underwriter talked with Stefano Allen, outpt prescriber who says tried haldol (tremor), then risperdal (reported akathesia); trial of abilify ineffective; he says at baseline on meds she is witty, organized, clear minded, though shy. He says she typically finds some reason to get off a medicaiton and then does so Her care is being transfered to [facility] and Dr. Carrizales. I spent minutes with the patient and/or on the patient floor today, greater than?50% of which was spent counseling/coordinating care. Reason for contiued inpatient stay Substantial Risk for: inability to function and rapid decompensation
[2021-12-22] MEDS: cloZAPine 100 MG TABLET PO (17:26)
[2021-12-22 20:35] VITALS: BP 135/80; PULSE 98; RESP 16; TEMP 36.4; O2SAT 94
[2021-12-22] MEDS: traZODone HCL 100 MG TABLET PO (20:50)
[2021-12-22] MEDS: HaloperidoL 5 MG TABLET 10 MG PO (20:50)
[2021-12-22] MEDS: bisacodyL 5 MG TABLET.DR 10 MG PO (20:50)
[2021-12-23] MEDS: Metoprolol Tartrate 25 MG TABLET PO ×2 (09:02→21:02)
[2021-12-23 09:03] VITALS: BP 99/60; PULSE 72; RESP 14
--- NOTE | 2021-12-23 17:11 | HO.PSYCHPN ---
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 patient's treatment with her court affirmed healthcare proxy, Erin, patient's sister.? [employer] and healthcare proxy reviewed medication options and agreed to trials of various medications listed below.? Erin reports that patient had a very bad tremor on Haldol however in new light of learning patient's past expressed feelings that she would prefer the tremor to losing her mind to psychosis, agrees that Haldol should be restarted and is included in the following options: Haldol: right hand tremor Zyprexa Risperidone: limited benefit; continued tremor Paliperidone: theoretical concern since similar to Risperdal Ziprasidone Perphenazine Fluphenazine Depakote Clozapine (if pt willing to accept blood draws) Past trials: Haldol Dec 100mg qmonthly: did her best however severe tremor Risperdal (sustenna): tremor/akathesia Abilify: not effective Zyprexa: minimally helpful com writer talked with Stefano Allen, outpt prescriber who says tried haldol (tremor), then risperdal (reported akathesia); trial of abilify ineffective; he says at baseline on meds she is witty, organized, clear minded, though shy. He says she typically finds some reason to get off a medicaiton and then does so Her care is being transfered to [facility] and Dr. Carrizales. I spent minutes with the patient and/or on the patient floor today, greater than?50% of which was spent counseling/coordinating care. Reason for contiued inpatient stay Substantial Risk for: inability to function and rapid decompensation
[2021-12-23] MEDS: cloZAPine 100 MG TABLET PO (17:14)
[2021-12-23 21:01] VITALS: BP 143/67; PULSE 101; RESP 18; TEMP 36.6; O2SAT 98
[2021-12-23] MEDS: bisacodyL 5 MG TABLET.DR 10 MG PO (21:02)
[2021-12-23] MEDS: HaloperidoL 5 MG TABLET 10 MG PO (21:02)
[2021-12-23] MEDS: traZODone HCL 100 MG TABLET PO (21:02)
[2021-12-24] MEDS: Metoprolol Tartrate 25 MG TABLET PO ×2 (08:15→20:47)
--- NOTE | 2021-12-24 12:03 | HO.PSYCHPN ---
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 healthcare proxy reviewed medication options and agreed to trials of various medications listed below.? Erin reports that patient had a very bad tremor on Haldol however in new light of learning patient's past expressed feelings that she would prefer the tremor to losing her mind to psychosis, agrees that Haldol should be restarted and is included in the following options: Haldol: right hand tremor Zyprexa Risperidone: limited benefit; continued tremor Paliperidone: theoretical concern since similar to Risperdal Ziprasidone Perphenazine Fluphenazine Depakote Clozapine (if pt willing to accept blood draws) Past trials: Haldol Dec 100mg qmonthly: did her best however severe tremor Risperdal (sustenna): tremor/akathesia Abilify: not effective Zyprexa: minimally helpful ghost writer talked with Stefano Allen, outpt prescriber who says tried haldol (tremor), then risperdal (reported akathesia); trial of abilify ineffective; he says at baseline on meds she is witty, organized, clear minded, though shy. He says she typically finds some reason to get off a medicaiton and then does so Her care is being transfered to [facility] and Dr. Carrizales. I spent minutes with the patient and/or on the patient floor today, greater than?50% of which was spent counseling/coordinating care. Reason for contiued inpatient stay Substantial Risk for: inability to function, rapid decompensation and med/psych decompensation
[2021-12-24 13:00] VITALS: BP 122/86; PULSE 100; RESP 14; TEMP 36.6; O2SAT 94
[2021-12-24] MEDS: cloZAPine 100 MG TABLET PO (16:35)
[2021-12-24 18:48] VITALS: BP 114/68; PULSE 103; RESP 16; TEMP 36.1; O2SAT 94
[2021-12-24] MEDS: bisacodyL 5 MG TABLET.DR 10 MG PO (20:47)
[2021-12-24] MEDS: traZODone HCL 100 MG TABLET PO (20:47)
[2021-12-24] MEDS: HaloperidoL 5 MG TABLET 10 MG PO (20:47)
[2021-12-24 20:49] VITALS: BP 130/76; PULSE 105
[2021-12-25] MEDS: Metoprolol Tartrate 25 MG TABLET PO ×2 (08:27→20:36)
[2021-12-25] MEDS: Magnesium Hydrox/Alum Hydrox 30 ML ORAL.SUSP PO (10:04)
--- NOTE | 2021-12-25 11:59 | HO.PSYCHPN ---
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 fissure from cracked skin; bacitracin TID for 4 days: completed fissure healing well -Grinder [employer] Tool discussed patient's treatment with her court affirmed healthcare proxy, Erin, patient's sister.? Grinder Set Up Operator Thread Tool and healthcare proxy reviewed medication options and agreed to trials of various medications listed below.? Erin reports that patient had a very bad tremor on Haldol however in new light of learning patient's past expressed feelings that she would prefer the tremor to losing her mind to psychosis, agrees that Haldol should be restarted and is included in the following options: Haldol: right hand tremor Zyprexa Risperidone: limited benefit; continued tremor Paliperidone: theoretical concern since similar to Risperdal Ziprasidone Perphenazine Fluphenazine Depakote Clozapine (if pt willing to accept blood draws) Past trials: Haldol Dec 100mg qmonthly: did her best however severe tremor Risperdal (sustenna): tremor/akathesia Abilify: not effective Zyprexa: minimally helpful lyric writer talked with Stefano Allen, outpt prescriber who says tried haldol (tremor), then risperdal (reported akathesia); trial of abilify ineffective; he says at baseline on meds she is witty, organized, clear minded, though shy. He says she typically finds some reason to get off a medicaiton and then does so Her care is being transfered to [facility] and Dr. Carrizales. I spent minutes with the patient and/or on the patient floor today, greater than?50% of which was spent counseling/coordinating care. Reason for contiued inpatient stay Substantial Risk for: inability to function, rapid decompensation and med/psych decompensation
[2021-12-25] MEDS: cloZAPine 100 MG TABLET PO (16:48)
[2021-12-25] MEDS: HaloperidoL 5 MG TABLET 10 MG PO (20:36)
[2021-12-25 20:50] VITALS: BP 130/76; PULSE 105; RESP 16; TEMP 36.6; O2SAT 94
[2021-12-26] MEDS: Metoprolol Tartrate 25 MG TABLET PO ×2 (08:24→19:57)
[2021-12-26 08:51] VITALS: BP 115/61; PULSE 94; RESP 14; TEMP 36.5; O2SAT 95
--- NOTE | 2021-12-26 16:50 | HO.PSYCHPN ---
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 utilize gentle redirection instead of trileptal -hydrocortisone PRN for c/o hemorrhoids -completed course of Augmentin started for tooth abscess -Left heal fissure from cracked skin; bacitracin TID for 4 days: completed fissure healing well -Hook And Eye Attacher discussed patient's treatment with her court affirmed healthcare proxy, Erin, patient's sister.? Hook And Eye Attacher and healthcare proxy reviewed medication options and agreed to trials of various medications listed below.? Erin reports that patient had a very bad tremor on Haldol however in new light of learning patient's past expressed feelings that she would prefer the tremor to losing her mind to psychosis, agrees that Haldol should be restarted and is included in the following options: Haldol: right hand tremor Zyprexa Risperidone: limited benefit; continued tremor Paliperidone: theoretical concern since similar to Risperdal Ziprasidone Perphenazine Fluphenazine Depakote Clozapine (if pt willing to accept blood draws) Past trials: Haldol Dec 100mg qmonthly: did her best however severe tremor Risperdal (sustenna): tremor/akathesia Abilify: not effective Zyprexa: minimally helpful assembly instructions writer talked with Stefano Allen, outpt prescriber who says tried haldol (tremor), then risperdal (reported akathesia); trial of abilify ineffective; he says at baseline on meds she is witty, organized, clear minded, though shy. He says she typically finds some reason to get off a medicaiton and then does so Her care is being transfered to [facility] and Dr. Carrizales. I spent minutes with the patient and/or on the patient floor today, greater than?50% of which was spent counseling/coordinating care. Reason for contiued inpatient stay Substantial Risk for: inability to function and rapid decompensation
[2021-12-26] MEDS: cloZAPine 100 MG TABLET PO (17:34)
[2021-12-26 19:55] VITALS: BP 113/70; PULSE 100; TEMP 35.7; O2SAT 93
[2021-12-26] MEDS: traZODone HCL 100 MG TABLET PO (19:56)
[2021-12-26] MEDS: HaloperidoL 5 MG TABLET 10 MG PO (19:57)
[2021-12-26] MEDS: bisacodyL 5 MG TABLET.DR 10 MG PO (19:57)
[2021-12-27 08:27] VITALS: BP 113/79; PULSE 87; RESP 16; TEMP 36.3; O2SAT 97
[2021-12-27] MEDS: Metoprolol Tartrate 25 MG TABLET PO ×2 (09:16→21:25)
--- NOTE | 2021-12-27 12:59 | HO.PSYCHPN ---
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 antipsychotics (being cross-tapered), do not want to increase risks of side-effects; although pt does have frequent insomnia, she is not a danger to self/others and is redirectable; for now will utilize gentle redirection instead of trileptal -hydrocortisone PRN for c/o hemorrhoids -completed course of Augmentin started for tooth abscess -Left heal fissure from cracked skin; bacitracin TID for 4 days: completed fissure healing well -Aircraft Design Engineer discussed patient's treatment with her court affirmed healthcare proxy, Erin, patient's sister.? Aircraft Design Engineer and healthcare proxy reviewed medication options and agreed to trials of various medications listed below.? Erin reports that patient had a very bad tremor on Haldol however in new light of learning patient's past expressed feelings that she would prefer the tremor to losing her mind to psychosis, agrees that Haldol should be restarted and is included in the following options: Haldol: right hand tremor Zyprexa Risperidone: limited benefit; continued tremor Paliperidone: theoretical concern since similar to Risperdal Ziprasidone Perphenazine Fluphenazine Depakote Clozapine (if pt willing to accept blood draws) Past trials: Haldol Dec 100mg qmonthly: did her best however severe tremor Risperdal (sustenna): tremor/akathesia Abilify: not effective Zyprexa: minimally helpful typewriter assembler talked with Stefano Allen, outpt prescriber who says tried haldol (tremor), then risperdal (reported akathesia); trial of abilify ineffective; he says at baseline on meds she is witty, organized, clear minded, though shy. He says she typically finds some reason to get off a medicaiton and then does so Her care is being transfered to [facility] and Dr. Carrizales. I spent minutes with the patient and/or on the patient floor today, greater than?50% of which was spent counseling/coordinating care. Reason for contiued inpatient stay Substantial Risk for: inability to function and rapid decompensation
[2021-12-27 18:00] VITALS: BP 108/68; PULSE 84; RESP 16
[2021-12-27] MEDS: cloZAPine 25 MG TABLET 75 MG PO (18:35)
[2021-12-27] MEDS: HaloperidoL 5 MG TABLET 10 MG PO (21:25)
[2021-12-27] MEDS: bisacodyL 5 MG TABLET.DR 10 MG PO (21:25)
[2021-12-27] MEDS: traZODone HCL 100 MG TABLET PO (21:25)
[2021-12-28 08:35] VITALS: BP 137/72; PULSE 97; TEMP 36.2; O2SAT 95
[2021-12-28 08:39] VITALS: BP 137/72; PULSE 97; TEMP 36.2; O2SAT 95
[2021-12-28] MEDS: Metoprolol Tartrate 25 MG TABLET PO ×2 (09:12→20:06)
--- NOTE | 2021-12-28 10:21 | P.PNPSI_ITS ---
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 options and agreed to trials of various medications listed below.? Erin reports that patient had a very bad tremor on Haldol however in new light of learning patient's past expressed feelings that she would prefer the tremor to losing her mind to psychosis, agrees that Haldol should be restarted and is included in the following options: Haldol: right hand tremor Zyprexa Risperidone: limited benefit; continued tremor Paliperidone: theoretical concern since similar to Risperdal Ziprasidone Perphenazine Fluphenazine Depakote Clozapine (if pt willing to accept blood draws) Past trials: Haldol Dec 100mg qmonthly: did her best however severe tremor Risperdal (sustenna): tremor/akathesia Abilify: not effective Zyprexa: minimally helpful grant writer talked with Stefano Allen, outpt prescriber who says tried haldol (tremor), then risperdal (reported akathesia); trial of abilify ineffective; he says at baseline on meds she is witty, organized, clear minded, though shy. He says she typically finds some reason to get off a medicaiton and then does so Her care is being transfered to [facility] and Dr. Carrizales. I spent minutes with the patient and/or on the patient floor today, greater than?50% of which was spent counseling/coordinating care. Reason for contiued inpatient stay Substantial Risk for: rapid decompensation
[2021-12-28] MEDS: cloZAPine 25 MG TABLET 75 MG PO (16:38)
[2021-12-28 18:00] VITALS: BP 118/76; PULSE 101; TEMP 36.4; O2SAT 96
[2021-12-28] MEDS: HaloperidoL 5 MG TABLET 10 MG PO (20:05)
[2021-12-28] MEDS: bisacodyL 5 MG TABLET.DR 10 MG PO (20:06)
[2021-12-28] MEDS: traZODone HCL 100 MG TABLET PO (20:06)
[2021-12-29 08:20] LABS: Neut%MD 72.7 %; Neutrophils Absolute Auto 5.8 x10*3/uL (2.0-8.3)
[2021-12-29] MEDS: Metoprolol Tartrate 25 MG TABLET PO ×2 (08:36→20:19)
--- NOTE | 2021-12-29 16:32 | HO.PSYCHPN ---
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 until recently, any type of lab work/vitals). -EKG on 10/28 shows QTc WNL; customs entry writer inquired and [employer] Dr. Garcia says no follow up needed unless patient develops symptoms of dizziness/syncope Trazodone?100mg for sleep; this was prn; will now schedule and see if helps given it's lower risk of side-effects vs Tripletpal -DC Trileptal for now(started on 11/05 for insomnia); although medication worked to help pt sleep, given patients age and that she is currently on 2 antipsychotics (being cross-tapered), do not want to increase risks of side-effects; although pt does have frequent insomnia, she is not a danger to self/others and is redirectable; for now will utilize gentle redirection instead of trileptal -hydrocortisone PRN for c/o hemorrhoids -completed course of Augmentin started for tooth abscess -Left heal fissure from cracked skin; bacitracin TID for 4 days: completed fissure healing well -[employer] discussed patient's treatment with her court affirmed healthcare proxy, Erin, patient's sister.? [employer] and healthcare proxy reviewed medication options and agreed to trials of various medications listed below.? Erin reports that patient had a very bad tremor on Haldol however in new light of learning patient's past expressed feelings that she would prefer the tremor to losing her mind to psychosis, agrees that Haldol should be restarted and is included in the following options: Haldol: right hand tremor Zyprexa Risperidone: limited benefit; continued tremor Paliperidone: theoretical concern since similar to Risperdal Ziprasidone Perphenazine Fluphenazine Depakote Clozapine (if pt willing to accept blood draws) Past trials: Haldol Dec 100mg qmonthly: did her best however severe tremor Risperdal (sustenna): tremor/akathesia Abilify: not effective Zyprexa: minimally helpful customs entry writer talked with Stefano Allen, outpt prescriber who says tried haldol (tremor), then risperdal (reported akathesia); trial of abilify ineffective; he says at baseline on meds she is witty, organized, clear minded, though shy. He says she typically finds some reason to get off a medicaiton and then does so Her care is being transfered to [facility] and Dr. Carrizales. I spent minutes with the patient and/or on the patient floor today, greater than?50% of which was spent counseling/coordinating care. Reason for contiued inpatient stay Substantial Risk for: inability to function and rapid decompensation
[2021-12-29] MEDS: cloZAPine 25 MG TABLET 50 MG PO (17:28)
[2021-12-29 18:00] VITALS: BP 129/83; PULSE 82; RESP 16; TEMP 35.9; O2SAT 97
[2021-12-29] MEDS: HaloperidoL 5 MG TABLET 10 MG PO (20:18)
[2021-12-29] MEDS: traZODone HCL 100 MG TABLET PO (20:19)
[2021-12-29] MEDS: bisacodyL 5 MG TABLET.DR 10 MG PO (20:19)
[2021-12-30 08:12] VITALS: BP 120/93; PULSE 93; RESP 16; TEMP 36.6; O2SAT 94
[2021-12-30] MEDS: Metoprolol Tartrate 25 MG TABLET PO ×2 (08:52→20:17)
--- NOTE | 2021-12-30 11:26 | PC.NURSE ---
PT ATTEMPTED TO TAKE A SHOWER. SHE WAS GETTING INTO THE SHOWER AREA SHE STATED SHE WAS FEELING LIGHT HEADED AND DIDNT WANT TO SHOWER. PT WAS WALKED TO HER ROOM AND ORTHO BP DONE. SITTING 120/73, P85 O2 SAT 94%... STANDING WAS 121/75, P 89, 93%. SHE DID NOTE FEELING A LITTLE SCARED TO SHOWER. WOULD NOT ELABORATE.
--- NOTE | 2021-12-30 14:26 | P.PNPSI_ITS ---
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 painter inquired and Plate Grinder Dr. Garcia says no follow up needed unless patient develops symptoms of dizziness/syncope Trazodone?100mg for sleep; this was prn; will now schedule and see if helps given it's lower risk of side- effects vs Tripletpal -DC Trileptal for now(started on 11/05 for insomnia); although medication worked to help pt sleep, given patients age and that she is currently on 2 antipsychotics (being cross-tapered), do not want to increase risks of side- effects; although pt does have frequent insomnia, she is not a danger to self/others and is redirectable; for now will utilize gentle redirection instead of trileptal -hydrocortisone PRN for c/o hemorrhoids -completed course of Augmentin started for tooth abscess -Left heal fissure from cracked skin; bacitracin TID for 4 days: completed fis sure healing well -Electric Motor Assembler discussed patient's treatment with her court affirmed healthcare proxy, Erin, patient's sister.? Electric Motor Assembler and healthcare proxy reviewed medication options and agreed to trials of various medications listed below.? Erin reports that patient had a very bad tremor on Haldol however in new light of learning patient's past expressed feelings that she would prefer the tremor to losing her mind to psychosis, agrees that Haldol should be restarted and is included in the following options: Haldol: right hand tremor Zyprexa Risperidone: limited benefit; continued tremor Paliperidone: theoretical concern since similar to Risperdal Ziprasidone Perphenazine Fluphenazine Depakote Clozapine (if pt willing to accept blood draws) Past trials: Haldol Dec 100mg qmonthly: did her best however severe tremor Risperdal (sustenna): tremor/akathesia Abilify: not effective Zyprexa: minimally helpful sign writer letterer or painter talked with Stefano Allen, outpt prescriber who says tried haldol (javon mor), then risperdal (reported akathesia); trial of abilify ineffective; he says at baseline on meds she is witty, organized, clear minded, though shy. He says she typically finds some reason to get off a medicaiton and then does so Her care is being transfered to [facility] and Dr. Carrizales. I spent minutes with the patient and/or on the patient floor today, greater than?50% of which was spent counseling/coordinating care. Reason for contiued inpatient stay Substantial Risk for: inability to function and rapid decompensation
[2021-12-30] MEDS: cloZAPine 25 MG TABLET 50 MG PO (17:53)
[2021-12-30 18:09] VITALS: BP 111/66; PULSE 97; TEMP 36.6
[2021-12-30 20:00] VITALS: BP 130/70; PULSE 97
[2021-12-30] MEDS: bisacodyL 5 MG TABLET.DR 10 MG PO (20:17)
[2021-12-30] MEDS: traZODone HCL 100 MG TABLET PO (20:17)
[2021-12-30] MEDS: traZODone HCL 50 MG TABLET PO (20:17)
[2021-12-30] MEDS: HaloperidoL 5 MG TABLET 10 MG PO (20:17)
[2021-12-31 08:45] VITALS: BP 133/95; PULSE 92; TEMP 36.2
[2021-12-31] MEDS: Metoprolol Tartrate 25 MG TABLET PO ×2 (09:17→21:16)
--- NOTE | 2021-12-31 11:56 | HO.PSYCHPN ---
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 any type of lab work/vitals). -EKG on 10/28 shows QTc WNL; typewriter ribbon winder inquired and Dining Car Waiter/Waitress Dr. Garcia says no follow up needed unless patient develops symptoms of dizziness/syncope Trazodone?100mg for sleep; this was prn; will now schedule and see if helps given it's lower risk of side-effects vs Tripletpal -DC Trileptal for now(started on 11/05 for insomnia); although medication worked to help pt sleep, given patients age and that she is currently on 2 antipsychotics (being cross-tapered), do not want to increase risks of side-effects; although pt does have frequent insomnia, she is not a danger to self/others and is redirectable; for now will utilize gentle redirection instead of trileptal -hydrocortisone PRN for c/o hemorrhoids -completed course of Augmentin started for tooth abscess -Left heal fissure from cracked skin; bacitracin TID for 4 days: completed fissure healing well -Hazardous Waste Technician discussed patient's treatment with her court affirmed healthcare proxy, Erin, patient's sister.? Hazardous Waste Technician and healthcare proxy reviewed medication options and agreed to trials of various medications listed below.? Erin reports that patient had a very bad tremor on Haldol however in new light of learning patient's past expressed feelings that she would prefer the tremor to losing her mind to psychosis, agrees that Haldol should be restarted and is included in the following options: Haldol: right hand tremor Zyprexa Risperidone: limited benefit; continued tremor Paliperidone: theoretical concern since similar to Risperdal Ziprasidone Perphenazine Fluphenazine Depakote Clozapine (if pt willing to accept blood draws) Past trials: Haldol Dec 100mg qmonthly: did her best however severe tremor Risperdal (sustenna): tremor/akathesia Abilify: not effective Zyprexa: minimally helpful typewriter ribbon winder talked with Stefano Allen, outpt prescriber who says tried haldol (tremor), then risperdal (reported akathesia); trial of abilify ineffective; he says at baseline on meds she is witty, organized, clear minded, though shy. He says she typically finds some reason to get off a medicaiton and then does so Her care is being transfered to [facility] and Dr. Carrizales. I spent 15 minutes with the patient and/or on the patient floor today, greater than?50% of which was spent counseling/coordinating care. Informed Consent: further education needed Reason for contiued inpatient stay Substantial Risk for: inability to function and rapid decompensation
[2021-12-31] MEDS: cloZAPine 25 MG TABLET 50 MG PO (17:27)
[2021-12-31 21:10] VITALS: BP 110/67; PULSE 64; TEMP 36.8; O2SAT 92
[2021-12-31] MEDS: bisacodyL 5 MG TABLET.DR 10 MG PO (21:15)
[2021-12-31] MEDS: traZODone HCL 100 MG TABLET PO (21:15)
[2021-12-31] MEDS: HaloperidoL 5 MG TABLET 10 MG PO (21:15)
[2022-01-01 09:00] VITALS: BP 154/68; PULSE 83; TEMP 36.2
[2022-01-01] MEDS: Metoprolol Tartrate 25 MG TABLET PO ×2 (09:13→21:50)
--- NOTE | 2022-01-01 09:27 | P.PNPSI_ITS ---
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 schedule and see if helps given it's lower risk of side- effects vs Tripletpal -DC Trileptal for now(started on 11/05 for insomnia); although medication worked to help pt sleep, given patients age and that she is currently on 2 antipsychotics (being cross-tapered), do not want to increase risks of side- effects; although pt does have frequent insomnia, she is not a danger to self/others and is redirectable; for now will utilize gentle redirection instead of trileptal -hydrocortisone PRN for c/o hemorrhoids -completed course of Augmentin started for tooth abscess -Left heal fissure from cracked skin; bacitracin TID for 4 days: completed fissure healing well -Aerotriangulation Specialist discussed patient's treatment with her court affirmed healthcare proxy, Erin, patient's sister.? Aerotriangulation Specialist and healthcare proxy reviewed medication options and agreed to trials of various medications listed below.? Erin reports that patient had a very bad tremor on Haldol however in new light of learning patient's past expressed feelings that she would prefer the tremor to losing her mind to psychosis, agrees that Haldol should be restarted and is included in the following options: Haldol: right hand tremor Zyprexa Risperidone: limited benefit; continued tremor Paliperidone: theoretical concern since similar to Risperdal Ziprasidone Perphenazine Fluphenazine Depakote Clozapine (if pt willing to accept blood draws) Past trials: Haldol Dec 100mg qmonthly: did her best however severe tremor Risperdal (sustenna): tremor/akathesia Abilify: not effective Zyprexa: minimally helpful filing writer talked with Stefano Allen, outpt prescriber who says tried haldol (tremor), then risperdal (reported akathesia); trial of abilify ineffective; he says at baseline on meds she is witty, organized, clear minded, though shy. He says she typically finds some reason to get off a medicaiton and then does so Her care is being transfered to [facility] and Dr. Carrizales. I spent 15 minutes with the patient and/or on the patient floor today, greater than?50% of which was spent counseling/coordinating care. Reason for contiued inpatient stay Substantial Risk for: harm to self, harm to others, inability to function and rapid decompensation
[2022-01-01] MEDS: cloZAPine 25 MG TABLET 50 MG PO (17:23)
[2022-01-01 21:00] VITALS: BP 131/71; PULSE 91; TEMP 36.3
[2022-01-01] MEDS: traZODone HCL 100 MG TABLET PO (21:50)
[2022-01-01] MEDS: bisacodyL 5 MG TABLET.DR 10 MG PO (21:50)
[2022-01-01] MEDS: HaloperidoL 5 MG TABLET 10 MG PO (21:50)
[2022-01-02] MEDS: Metoprolol Tartrate 25 MG TABLET PO ×2 (08:39→20:34)
[2022-01-02 08:55] VITALS: BP 125/75; PULSE 94; RESP 14; TEMP 36.7; O2SAT 96
--- NOTE | 2022-01-02 16:41 | P.PNPSI_ITS ---
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 side-effects are increased when a person is simultaneously on 2 antipsychotics; at this point there are not many other good? options as there is some concern that patient had akathisia on risperidone; other typical antipsychotics may also produce tremor like Haldol; Thorazine is an option however it no longer comes in an IM form and? does not have a long-acting formula; ziprasidone remains an option however it does have more risk for QTC prolongation and patient has not allowed, until only until recently, any type of lab work/vitals). -EKG on 10/28 shows QTc WNL; comic book writer inquired and Child Welfare Manager Dr. Garcia says no follow up needed unless patient develops symptoms of dizziness/syncope Trazodone?100mg for sleep; this was prn; will now schedule and see if helps given it's lower risk of side- effects vs Tripletpal -DC Trileptal for now(started on 11/05 for insomnia); although medication worked to help pt sleep, given patients age and that she is currently on 2 antipsychotics (being cross-tapered), do not want to increase risks of side-effects; although pt does have frequent insomnia, she is not a danger to self/others and is redirectable; for now will utilize gentle redirection instead of trileptal -hydrocortisone PRN for c/o hemorrhoids -completed course of Augmentin started for tooth abscess -Left heal fissure from cracked skin; bacitracin TID for 4 days: completed fissure healing well -Material Flow Engineer discussed patient's treatment with her court affirmed healthcare proxy, Erin, patient's sister.? Material Flow Engineer and healthcare proxy reviewed medication options and agreed to trials of various medications listed below.? Erin reports that patient had a very bad tremor on Haldol however in new light of learning patient's past expressed feelings that she would prefer the tremor to losing her mind to psychosis, agrees that Haldol should be restarted and is included in the following options: Haldol: right hand tremor Zyprexa Risperidone: limited benefit; continued tremor Paliperidone: theoretical concern since similar to Risperdal Ziprasidone Perphenazine Fluphenazine Depakote Clozapine (if pt willing to accept blood draws) Past trials: Haldol Dec 100mg qmonthly: did her best however severe tremor Risperdal (sustenna): tremor/akathesia Abilify: not effective Zyprexa: minimally helpful comic book writer talked with Stefano Allen, outpt prescriber who says tried haldol (tremor), then risperdal (reported akathesia); trial of abilify ineffective; he says at baseline on meds she is witty, organized, clear minded, though shy. He says she typically finds some reason to get off a medicaiton and then does so Her care is being transfered to [facility] and Dr. Carrizales. I spent minutes with the patient and/or on the patient floor today, greater than?50% of which was spent counseling/coordinating care. Reason for contiued inpatient stay Substantial Risk for: rapid decompensation
[2022-01-02 18:00] VITALS: BP 137/73; PULSE 99; TEMP 36.8
[2022-01-02] MEDS: cloZAPine 25 MG TABLET 50 MG PO (19:31)
--- NOTE | 2022-01-02 19:45 | PC.NURSE ---
Pt stated she felt strange, she wasn't sure how to describe. Vitals taken. VS were 121/85, 104, 93% and temp 97.5. Will continue to monitor.
[2022-01-02] MEDS: HaloperidoL 5 MG TABLET 10 MG PO (20:33)
[2022-01-02] MEDS: traZODone HCL 100 MG TABLET PO (20:33)
[2022-01-02] MEDS: bisacodyL 5 MG TABLET.DR 10 MG PO (20:34)
[2022-01-03 08:30] VITALS: BP 134/80; PULSE 77; RESP 16; TEMP 36.5; O2SAT 95
[2022-01-03] MEDS: Metoprolol Tartrate 25 MG TABLET PO ×2 (08:44→20:04)
[2022-01-03 13:00] VITALS: BP 112/67; PULSE 83; RESP 14; O2SAT 95
[2022-01-03] MEDS: cloZAPine 25 MG TABLET PO (16:51)
[2022-01-03 18:00] VITALS: BP 150/86; PULSE 94; TEMP 37
[2022-01-03 19:45] VITALS: BP 126/65; PULSE 95
[2022-01-03] MEDS: traZODone HCL 100 MG TABLET PO (20:04)
[2022-01-03] MEDS: HaloperidoL 5 MG TABLET 10 MG PO (20:04)
[2022-01-03] MEDS: bisacodyL 5 MG TABLET.DR 10 MG PO (20:04)
--- NOTE | 2022-01-03 22:34 | HO.PSYCHPN ---
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 a person is simultaneously on 2 antipsychotics; at this point there are not many other good? options as there is some concern that patient had akathisia on risperidone; other typical antipsychotics may also produce tremor like Haldol; Thorazine is an option however it no longer comes in an IM form and? does not have a long-acting formula; ziprasidone remains an option however it does have more risk for QTC prolongation and patient has not allowed, until only until recently, any type of lab work/vitals). -EKG on 10/28 shows QTc WNL; telegraphic typewriter repairer inquired and Electronic Equipment Repairer Dr. Garcia says no follow up needed unless patient develops symptoms of dizziness/syncope Trazodone?100mg for sleep; this was prn; will now schedule and see if helps given it's lower risk of side-effects vs Tripletpal -DC Trileptal for now(started on 11/05 for insomnia); although medication worked to help pt sleep, given patients age and that she is currently on 2 antipsychotics (being cross-tapered), do not want to increase risks of side-effects; although pt does have frequent insomnia, she is not a danger to self/others and is redirectable; for now will utilize gentle redirection instead of trileptal -hydrocortisone PRN for c/o hemorrhoids -completed course of Augmentin started for tooth abscess -Left heal fissure from cracked skin; bacitracin TID for 4 days: completed fissure healing well -Landing Scaler discussed patient's treatment with her court affirmed healthcare proxy, Erin, patient's sister.? Landing Scaler and healthcare proxy reviewed medication options and agreed to trials of various medications listed below.? Erin reports that patient had a very bad tremor on Haldol however in new light of learning patient's past expressed feelings that she would prefer the tremor to losing her mind to psychosis, agrees that Haldol should be restarted and is included in the following options: Haldol: right hand tremor Zyprexa Risperidone: limited benefit; continued tremor Paliperidone: theoretical concern since similar to Risperdal Ziprasidone Perphenazine Fluphenazine Depakote Clozapine (if pt willing to accept blood draws) Past trials: Haldol Dec 100mg qmonthly: did her best however severe tremor Risperdal (sustenna): tremor/akathesia Abilify: not effective Zyprexa: minimally helpful telegraphic typewriter repairer talked with Stefano Allen, outpt prescriber who says tried haldol (tremor), then risperdal (reported akathesia); trial of abilify ineffective; he says at baseline on meds she is witty, organized, clear minded, though shy. He says she typically finds some reason to get off a medicaiton and then does so Her care is being transfered to [facility] and Dr. Carrizales. I spent minutes with the patient and/or on the patient floor today, greater than?50% of which was spent counseling/coordinating care. Reason for contiued inpatient stay Substantial Risk for: inability to function and rapid decompensation
[2022-01-04 07:13] LABS: Neut%MD 67.7 %; Neutrophils Absolute Auto 4.8 x10*3/uL (2.0-8.3); WBCANC 7.1 X10*3/uL
[2022-01-04] MEDS: Metoprolol Tartrate 25 MG TABLET PO ×2 (08:49→21:24)
[2022-01-04 08:51] VITALS: BP 144/78; PULSE 76; RESP 14; TEMP 36.6; O2SAT 96
[2022-01-04] MEDS: cloZAPine 25 MG TABLET PO (16:32)
--- NOTE | 2022-01-04 18:04 | HO.PSYCHPN ---
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 risk) as risk of side-effects are increased when a person is simultaneously on 2 antipsychotics; at this point there are not many other good? options as there is some concern that patient had akathisia on risperidone; other typical antipsychotics may also produce tremor like Haldol; Thorazine is an option however it no longer comes in an IM form and? does not have a long-acting formula; ziprasidone remains an option however it does have more risk for QTC prolongation and patient has not allowed, until only until recently, any type of lab work/vitals). -EKG on 10/28 shows QTc WNL; group underwriter inquired and [employer] Offbearer Dr. Garcia says no follow up needed unless patient develops symptoms of dizziness/syncope Trazodone?100mg for sleep; this was prn; will now schedule and see if helps given it's lower risk of side-effects vs Tripletpal -DC Trileptal for now(started on 11/05 for insomnia); although medication worked to help pt sleep, given patients age and that she is currently on 2 antipsychotics (being cross-tapered), do not want to increase risks of side-effects; although pt does have frequent insomnia, she is not a danger to self/others and is redirectable; for now will utilize gentle redirection instead of trileptal -hydrocortisone PRN for c/o hemorrhoids -completed course of Augmentin started for tooth abscess -Left heal fissure from cracked skin; bacitracin TID for 4 days: completed fissure healing well -[place] discussed patient's treatment with her court affirmed healthcare proxy, Erin, patient's sister.? [place] and healthcare proxy reviewed medication options and agreed to trials of various medications listed below.? Erin reports that patient had a very bad tremor on Haldol however in new light of learning patient's past expressed feelings that she would prefer the tremor to losing her mind to psychosis, agrees that Haldol should be restarted and is included in the following options: Haldol: right hand tremor Zyprexa Risperidone: limited benefit; continued tremor Paliperidone: theoretical concern since similar to Risperdal Ziprasidone Perphenazine Fluphenazine Depakote Clozapine (if pt willing to accept blood draws) Past trials: Haldol Dec 100mg qmonthly: did her best however severe tremor Risperdal (sustenna): tremor/akathesia Abilify: not effective Zyprexa: minimally helpful group underwriter talked with Stefano Allen, outpt prescriber who says tried haldol (tremor), then risperdal (reported akathesia); trial of abilify ineffective; he says at baseline on meds she is witty, organized, clear minded, though shy. He says she typically finds some reason to get off a medicaiton and then does so Her care is being transfered to [facility] and Dr. Carrizales. I spent minutes with the patient and/or on the patient floor today, greater than?50% of which was spent counseling/coordinating care. Reason for contiued inpatient stay Substantial Risk for: inability to function, rapid decompensation and med/psych decompensation
[2022-01-04] MEDS: HaloperidoL 5 MG TABLET 10 MG PO (21:23)
[2022-01-04] MEDS: traZODone HCL 100 MG TABLET PO (21:24)
[2022-01-04] MEDS: bisacodyL 5 MG TABLET.DR 10 MG PO (21:24)
[2022-01-04 21:25] VITALS: BP 121/69; PULSE 87; TEMP 36.1; O2SAT 93
[2022-01-05] MEDS: Metoprolol Tartrate 25 MG TABLET PO ×2 (08:06→20:16)
[2022-01-05 08:11] VITALS: BP 117/74; PULSE 91; RESP 14; TEMP 36.7; O2SAT 93
[2022-01-05 13:00] VITALS: PULSE 90; RESP 14; TEMP 36.7; O2SAT 94
--- NOTE | 2022-01-05 16:23 | HO.PSYCHPN ---
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 and comes in an IM form as well as long-acting; discussed case with Dr. Castaneda who agrees with Zyprexa 30mg even though it's a? higher dose than what's typically considered a max dose since Zyprexa has already demonstrated some benefit and pt has been tolerating this medication; the alternative of adding a 2nd antipsychotic to Zyprexa?even if at a low dose carries roughly the same risk potential (or more risk) as risk of side-effects are increased when a person is simultaneously on 2 antipsychotics; at this point there are not many other good? options as there is some concern that patient had akathisia on risperidone; other typical antipsychotics may also produce tremor like Haldol; Thorazine is an option however it no longer comes in an IM form and? does not have a long-acting formula; ziprasidone remains an option however it does have more risk for QTC prolongation and patient has not allowed, until only until recently, any type of lab work/vitals). -EKG on 10/28 shows QTc WNL; fha underwriter inquired and Chick Sexer Dr. Garcia says no follow up needed unless patient develops symptoms of dizziness/syncope Trazodone?100mg for sleep; this was prn; will now schedule and see if helps given it's lower risk of side-effects vs Tripletpal -DC Trileptal for now(started on 11/05 for insomnia); although medication worked to help pt sleep, given patients age and that she is currently on 2 antipsychotics (being cross-tapered), do not want to increase risks of side-effects; although pt does have frequent insomnia, she is not a danger to self/others and is redirectable; for now will utilize gentle redirection instead of trileptal -hydrocortisone PRN for c/o hemorrhoids -completed course of Augmentin started for tooth abscess -Left heal fissure from cracked skin; bacitracin TID for 4 days: completed fissure healing well -Educational Technology Coordinator discussed patient's treatment with her court affirmed healthcare proxy, Erin, patient's sister.? Educational Technology Coordinator and healthcare proxy reviewed medication options and agreed to trials of various medications listed below.? Erin reports that patient had a very bad tremor on Haldol however in new light of learning patient's past expressed feelings that she would prefer the tremor to losing her mind to psychosis, agrees that Haldol should be restarted and is included in the following options: Haldol: right hand tremor Zyprexa Risperidone: limited benefit; continued tremor Paliperidone: theoretical concern since similar to Risperdal Ziprasidone Perphenazine Fluphenazine Depakote Clozapine (if pt willing to accept blood draws) Past trials: Haldol Dec 100mg qmonthly: did her best however severe tremor Risperdal (sustenna): tremor/akathesia Abilify: not effective Zyprexa: minimally helpful fha underwriter talked with Stefano Allen outpt prescriber who says tried haldol (tremor), then risperdal (reported akathesia); trial of abilify ineffective; he says at baseline on meds she is witty, organized, clear minded, though shy. He says she typically finds some reason to get off a medicaiton and then does so Her care is being transfered to [facility] and Dr. Carrizales. I spent minutes with the patient and/or on the patient floor today, greater than?50% of which was spent counseling/coordinating care. Reason for contiued inpatient stay Substantial Risk for: inability to function, rapid decompensation and med/psych decompensation
[2022-01-05] MEDS: cloZAPine 25 MG TABLET PO (17:03)
[2022-01-05] MEDS: Loperamide HCl 2 MG CAPSULE PO (17:03)
[2022-01-05 20:06] VITALS: BP 115/69; PULSE 92; RESP 18; TEMP 36.6; O2SAT 95
[2022-01-05] MEDS: traZODone HCL 100 MG TABLET PO (20:16)
[2022-01-05] MEDS: HaloperidoL 5 MG TABLET 10 MG PO (20:16)
[2022-01-06] MEDS: Metoprolol Tartrate 25 MG TABLET PO ×2 (08:32→19:55)
[2022-01-06 09:00] VITALS: BP 138/74; PULSE 78; RESP 16; TEMP 36.3; O2SAT 94
--- NOTE | 2022-01-06 18:20 | P.PNPSI_ITS ---
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 tolerating this medication; the alternative of adding a 2nd antipsychotic to Zyprexa?even if at a low dose carries roughly the same risk potential (or more risk) as risk of side-effects are increased when a person is simultaneously on 2 antipsychotics; at this point there are not many other good? options as there is some concern that patient had akathisia on risperidone; other typical antipsychotics may also produce tremor like Haldol; Thorazine is an option however it no longer comes in an IM form and? does not have a long-acting formula; ziprasidone remains an option however it does have more risk for QTC prolongation and patient has not allowed, until only until recently, any type of lab work/vitals). -EKG on 10/28 shows QTc WNL; freelance writer inquired and Lapidary Apprentice Dr. Garcia says no follow up needed unless patient develops symptoms of dizziness/syncope Trazodone?100mg for sleep; this was prn; will now schedule and see if helps given it's lower risk of side- effects vs Tripletpal -DC Trileptal for now(started on 11/05 for insomnia); although medication worked to help pt sleep, given patients age and that she is currently on 2 antipsychoti cs (being cross-tapered), do not want to increase risks of side-effects; although pt does have frequent insomnia, she is not a danger to self/others and is redirectable; for now will utilize gentle redirection instead of trileptal -hydrocortisone PRN for c/o hemorrhoids -completed course of Augmentin started for tooth abscess -Left heal fissure from cracked skin; bacitracin TID for 4 days: completed fissure healing well -[employer] discussed patient's treatment with her court affirmed healthcare proxy, Erin, patient's sister.? [employer] and healthcare proxy reviewed medication options and agreed to trials of various medications listed below.? Erin reports that patient had a very bad tremor on Haldol however in new light of learning patient's past expressed feelings that she would prefer the tremor to losing her mind to psychosis, agrees that Haldol should be restarted and is included in the following options: Haldol: right hand tremor Zyprexa Risperidone: limited benefit; continued tremor Paliperidone: theoretical concern since similar to Risperdal Ziprasidone Perphenazine Fluphenazine Depakote Clozapine (if pt willing to accept blood draws) Past trials: Haldol Dec 100mg qmonthly: did her best however severe tremor Risperdal (sustenna): tremor/akathesia Abilify: not effective Zyprexa: minimally helpful freelance writer talked with Stefano Allen, outpt prescriber who says tried haldol (tremor), then risperdal (reported akathesia); trial of abilify ineffective; he says at baseline on meds she is witty, organized, clear minded, though shy. He says she typically finds some reason to get off a medicaiton and then does so Her care is being transfered to [facility] and Dr. Carrizales. I spent minutes with the patient and/or on the patient floor today, greater than?50% of which was spent counseling/coordinating care. Reason for contiued inpatient stay Substantial Risk for: inability to function and rapid decompensation
[2022-01-06 19:35] VITALS: BP 120/70; PULSE 93
[2022-01-06] MEDS: traZODone HCL 100 MG TABLET PO (19:55)
[2022-01-06] MEDS: HaloperidoL 5 MG TABLET 10 MG PO (19:55)
[2022-01-07] MEDS: Metoprolol Tartrate 25 MG TABLET PO ×2 (08:51→20:07)
[2022-01-07 13:00] VITALS: BP 123/86; PULSE 83; RESP 14; TEMP 36.6; O2SAT 97
--- NOTE | 2022-01-07 17:17 | HO.PSYCHPN ---
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 already demonstrated some benefit and pt has been tolerating this medication; the alternative of adding a 2nd antipsychotic to Zyprexa?even if at a low dose carries roughly the same risk potential (or more risk) as risk of side-effects are increased when a person is simultaneously on 2 antipsychotics; at this point there are not many other good? options as there is some concern that patient had akathisia on risperidone; other typical antipsychotics may also produce tremor like Haldol; Thorazine is an option however it no longer comes in an IM form and? does not have a long-acting formula; ziprasidone remains an option however it does have more risk for QTC prolongation and patient has not allowed, until only until recently, any type of lab work/vitals). -EKG on 12/10 shows QTc WNL; designer writer inquired and Traffic Manager Dr. Garcia says no follow up needed unless patient develops symptoms of dizziness/syncope Trazodone?100mg for sleep; this was prn; will now schedule and see if helps given it's lower risk of side-effects vs Tripletpal -DC Trileptal for now(started on 11/05 for insomnia); although medication worked to help pt sleep, given patients age and that she is currently on 2 antipsychotics (being cross-tapered), do not want to increase risks of side-effects; although pt does have frequent insomnia, she is not a danger to self/others and is redirectable; for now will utilize gentle redirection instead of trileptal -hydrocortisone PRN for c/o hemorrhoids -completed course of Augmentin started for tooth abscess -Left heal fissure from cracked skin; bacitracin TID for 4 days: completed fissure healing well -Utility Bill Collection Clerk discussed patient's treatment with her court affirmed healthcare proxy, Erin, patient's sister.? Utility Bill Collection Clerk and healthcare proxy reviewed medication options and agreed to trials of various medications listed below.? Erin reports that patient had a very bad tremor on Haldol however in new light of learning patient's past expressed feelings that she would prefer the tremor to losing her mind to psychosis, agrees that Haldol should be restarted and is included in the following options: Haldol: right hand tremor Zyprexa Risperidone: limited benefit; continued tremor Paliperidone: theoretical concern since similar to Risperdal Ziprasidone Perphenazine Fluphenazine Depakote Clozapine (if pt willing to accept blood draws) Past trials: Haldol Dec 100mg qmonthly: did her best however severe tremor Risperdal (sustenna): tremor/akathesia Abilify: not effective Zyprexa: minimally helpful designer writer talked with Stefano Allen, outpt prescriber who says tried haldol (tremor), then risperdal (reported akathesia); trial of abilify ineffective; he says at baseline on meds she is witty, organized, clear minded, though shy. He says she typically finds some reason to get off a medicaiton and then does so Her care is being transfered to [facility] and Dr. Carrizales 01/07: no changes to primary team treatment plan. Aware of recent transition from Clozaril to Haldol. I spent minutes with the patient and/or on the patient floor today, greater than?50% of which was spent counseling/coordinating care. Reason for contiued inpatient stay Substantial Risk for: inability to function and rapid decompensation
[2022-01-07 19:45] VITALS: BP 138/73; PULSE 94
[2022-01-07] MEDS: HaloperidoL 5 MG TABLET 10 MG PO (20:07)
[2022-01-07] MEDS: traZODone HCL 100 MG TABLET PO (20:07)
[2022-01-08] MEDS: Metoprolol Tartrate 25 MG TABLET PO ×2 (08:57→19:48)
--- NOTE | 2022-01-08 12:46 | HO.PSYCHPN ---
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 though it's a? higher dose than what's typically considered a max dose since Zyprexa has already demonstrated some benefit and pt has been tolerating this medication; the alternative of adding a 2nd antipsychotic to Zyprexa?even if at a low dose carries roughly the same risk potential (or more risk) as risk of side-effects are increased when a person is simultaneously on 2 antipsychotics; at this point there are not many other good? options as there is some concern that patient had akathisia on risperidone; other typical antipsychotics may also produce tremor like Haldol; Thorazine is an option however it no longer comes in an IM form and? does not have a long-acting formula; ziprasidone remains an option however it does have more risk for QTC prolongation and patient has not allowed, until only until recently, any type of lab work/vitals). -EKG on 10/28 shows QTc WNL; typewriters functional tester inquired and [facility] Dr. Garcia says no follow up needed unless patient develops symptoms of dizziness/syncope Trazodone?100mg for sleep; this was prn; will now schedule and see if helps given it's lower risk of side-effects vs Tripletpal -DC Trileptal for now(started on 11/05 for insomnia); although medication worked to help pt sleep, given patients age and that she is currently on 2 antipsychotics (being cross-tapered), do not want to increase risks of side-effects; although pt does have frequent insomnia, she is not a danger to self/others and is redirectable; for now will utilize gentle redirection instead of trileptal -hydrocortisone PRN for c/o hemorrhoids -completed course of Augmentin started for tooth abscess -Left heal fissure from cracked skin; bacitracin TID for 4 days: completed fissure healing well -Roller Leveler Operator discussed patient's treatment with her court affirmed healthcare proxy, Erin, patient's sister.? Roller Leveler Operator and healthcare proxy reviewed medication options and agreed to trials of various medications listed below.? Erin reports that patient had a very bad tremor on Haldol however in new light of learning patient's past expressed feelings that she would prefer the tremor to losing her mind to psychosis, agrees that Haldol should be restarted and is included in the following options: Haldol: right hand tremor Zyprexa Risperidone: limited benefit; continued tremor Paliperidone: theoretical concern since similar to Risperdal Ziprasidone Perphenazine Fluphenazine Depakote Clozapine (if pt willing to accept blood draws) Past trials: Haldol Dec 100mg qmonthly: did her best however severe tremor Risperdal (sustenna): tremor/akathesia Abilify: not effective Zyprexa: minimally helpful typewriters functional tester talked with Stefano Allen, outpt prescriber who says tried haldol (tremor), then risperdal (reported akathesia); trial of abilify ineffective; he says at baseline on meds she is witty, organized, clear minded, though shy. He says she typically finds some reason to get off a medicaiton and then does so Her care is being transfered to [facility] and Dr. Carrizales 01/08: no changes to primary team treatment plan. Aware of recent transition from Clozaril to Haldol. I spent minutes with the patient and/or on the patient floor today, greater than?50% of which was spent counseling/coordinating care. Patient educated on: medication risk/benefits Informed Consent: understands Reason for contiued inpatient stay Substantial Risk for: inability to function
[2022-01-08 18:00] VITALS: BP 145/68; PULSE 88
[2022-01-08] MEDS: traZODone HCL 100 MG TABLET PO (19:48)
[2022-01-08] MEDS: HaloperidoL 5 MG TABLET 10 MG PO (19:48)
[2022-01-09] MEDS: Metoprolol Tartrate 25 MG TABLET PO ×2 (08:17→21:05)
[2022-01-09 09:00] VITALS: BP 128/86; PULSE 88; RESP 14; TEMP 36.8; O2SAT 95
--- NOTE | 2022-01-09 09:34 | P.PNPSI_ITS ---
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 this point there are not many other good? options as there is some concern that patient had akathisia on risperidone; other typical antipsychotics may also produce tremor like Haldol; Thorazine is an option however it no longer comes in an IM form and? does not have a long-acting formula; ziprasidone remains an option however it does have more risk for QTC prolongation and patient has not allowed, until only until recently, any type of lab work/vitals). -EKG on 10/28 shows QTc WNL; contract technical writer inquired and [employer] Dr. Garcia says no follow up needed unless patient develops symptoms of dizziness/syncope Trazodone?100mg for sleep; this was prn; will now schedule and see if helps given it's lower risk of side-effects vs Tripletpal -DC Trileptal for now(started on 11/05 for insomnia); although medication worked to help pt sleep, given patients age and that she is currently on 2 antipsychotics (being cross-tapered), do not want to increase risks of side- effects; although pt does have frequent insomnia, she is not a danger to self/others and is redirectable; for now will utilize gentle redirection instead of trileptal -hydrocortisone PRN for c/o hemorrhoids -completed course of Augmentin started for tooth abscess -Left heal fissure from cracked skin; bacitracin TID for 4 days: completed fissure healing well -Water Sander discussed patient's treatment with her court affirmed healthcare proxy, Erin, patient's sister.? Water Sander and healthcare proxy reviewed medication options and agreed to trials of various medications listed below.? Erin reports that patient had a very bad tremor on Haldol however in new light of learning patient's past expressed feelings that she would prefer the tremor to losing her mind to psychosis, agrees that Haldol should be restarted and is included in the following options: Haldol: right hand tremor Zyprexa Risperidone: limited benefit; continued tremor Paliperidone: theoretical concern since similar to Risperdal Ziprasidone Perphenazine Fluphenazine Depakote Clozapine (if pt willing to accept blood draws) Past trials: Haldol Dec 100mg qmonthly: did her best however severe tremor Risperdal (sustenna): tremor/akathesia Abilify: not effective Zyprexa: minimally helpful contract technical writer talked with Stefano Allen, outpt prescriber who says tried haldol (tremor), then risperdal (reported akathesia); trial of abilify ineffective; he says at baseline on meds she is witty, organized, clear minded, though shy. He says she typically finds some reason to get off a medicaiton and then does so Her care is being transfered to [facility] and Dr. Carrizales 01/08: no changes to primary team treatment plan. Aware of recent transition from Clozaril to Haldol. I spent minutes with the patient and/or on the patient floor today, greater than?50% of which was spent counseling/coordinating care. Reason for contiued inpatient stay Substantial Risk for: other
--- NOTE | 2022-01-09 13:04 | PC.NURSE ---
PT REPORTS SHE IS HAVING HARD TIME URINATING. STATES SHE IS HAVING A HARD TIME WITH THE START OF FLOW OF URINE BUT THEN STATES SHE IS ABLE TO GO. UA OBTAINED WITH SOME DIFFICULTY. BLADDER SCAN DONE. POST VOID RESIDUAL WAS 91CC AT 1250.
[2022-01-09 13:13] LABS: Appearance Urine CLEAR; Color Urine YELLOW; Glucose Urine UA NEG (NEG); Leukocyte Esterase Urine NEG (NEG); Nitrite Urine NEG (NEG); PH 5.5 (5.0-8.0); Specific Gravity - Urine <= 1.005 (1.005-1.025); Urine Blood NEG (NEG); Urine Ketones NEG (NEG); Urine Protein NEG (NEG-TRACE)
[2022-01-09 20:30] VITALS: BP 135/84; PULSE 98
[2022-01-09] MEDS: traZODone HCL 100 MG TABLET PO (21:05)
[2022-01-09] MEDS: HaloperidoL 5 MG TABLET 10 MG PO (21:05)
[2022-01-10 08:45] VITALS: BP 136/68; PULSE 75; TEMP 36.6
[2022-01-10] MEDS: Metoprolol Tartrate 25 MG TABLET PO ×2 (08:47→20:31)
--- NOTE | 2022-01-10 17:36 | P.PNPSI_ITS ---
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 to cause as TD/tremor verses 1st generations, and comes in an IM form as well as long-acting; discussed case with Dr. Castaneda who agrees with Zyprexa 30mg even though it's a? higher dose than what's typically considered a max dose since Zyprexa has already demonstrated some benefit and pt has been tolerating this medication; the alternative of adding a 2nd antipsychotic to Zyprexa?even if at a low dose carries roughly the same risk potential (or more risk) as risk of side-effects are increased when a person is simultaneously on 2 antipsychotics; at this point there are not many other good? options as there is some concern that patient had akathisia on risperidone; other typical antipsychotics may also produce tremor like Haldol; Thorazine is an option however it no longer comes in an IM form and? does not have a long-acting formula; ziprasidone remains an option however it does have more risk for QTC prolongation and patient has not allowed, until only until recently, any type of lab work/vitals). -EKG on 10/28 shows QTc WNL; designer writer inquired and [employer] Contact Printer Dr. Garcia says no follow up needed unless patient develops symptoms of dizziness/syncope Trazodone?100mg for sleep; this was prn; will now schedule and see if helps given it's lower risk of side- effects vs Tripletpal -DC Trileptal for now(started on 11/05 for insomnia); although medication worked to help pt sleep, given patients age and that she is currently on 2 antipsychotics (being cross-tapered), do not want to increase risks of side- effects; although pt does have frequent insomnia, she is not a danger to self/others and is redirectable; for now will utilize gentle redirection instead of trileptal -hydrocortisone PRN for c/o hemorrhoids -completed course of Augmentin started for tooth abscess -Left heal fissure from cracked skin; bacitracin TID for 4 days: completed fissure healing well -Cop Examiner discussed patient's treatment with her court affirmed healthcare proxy, Erin, patient's sister.? Cop Examiner and healthcare proxy reviewed medication options and agreed to trials of various medications listed below.? Erin reports that patient had a very bad tremor on Haldol however in new light of learning patient's past expressed feelings that she would prefer the tremor to losing her mind to psychosis, agrees that Haldol should be restarted and is included in the following options: Haldol: right hand tremor Zyprexa Risperidone: limited benefit; continued tremor Paliperidone: theoretical concern since similar to Risperdal Ziprasidone Perphenazine Fluphenazine Depakote Clozapine (if pt willing to accept blood draws) Past trials: Haldol Dec 100mg qmonthly: did her best however severe tremor Risperdal (sustenna): tremor/akathesia Abilify: not effective Zyprexa: minimally helpful designer writer talked with Stefano Allen, outpt prescriber who says tried haldol (tremor), then risperdal (reported akathesia); trial of abilify ineffective; he says at baseline on meds she is witty, organized, clear minded, though shy. He says she typically finds some reason to get off a medicaiton and then does so Her care is being transfered to [facility] and Dr. Carrizales 01/08: no changes to primary team treatment plan. Aware of recent transition from Clozaril to Haldol. I spent minutes with the patient and/or on the patient floor today, greater than?50% of which was spent counseling/coordinating care. Reason for contiued inpatient stay Substantial Risk for: inability to function, rapid decompensation and med/psych decompensation
[2022-01-10 20:25] VITALS: BP 127/66; PULSE 74; RESP 18; TEMP 36.4; O2SAT 97
[2022-01-10] MEDS: HaloperidoL 5 MG TABLET 10 MG PO (20:32)
[2022-01-10] MEDS: traZODone HCL 100 MG TABLET PO (20:32)
[2022-01-11 08:50] VITALS: BP 137/88; PULSE 84; TEMP 36.8
[2022-01-11] MEDS: Metoprolol Tartrate 25 MG TABLET PO ×2 (08:52→20:09)
[2022-01-11 19:58] VITALS: BP 137/71; PULSE 103; RESP 18; TEMP 36.3; O2SAT 97
[2022-01-11] MEDS: traZODone HCL 100 MG TABLET PO (20:07)
[2022-01-11] MEDS: HaloperidoL 5 MG TABLET 10 MG PO (20:08)
[2022-01-11] MEDS: cloNIDine HCL 0.1 MG TABLET 0.05 MG PO (20:08)
--- NOTE | 2022-01-11 23:10 | P.PNPSI_ITS ---
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 first see if adding propranolol would be effective rather than have patient on 2 antipsychotics 2.?Premature supraventricular complexes (see cardiology note below):RESOLVED per EKG on 12/05/21 -will continue to intermittently monitor Discussed case with hospitalist and following recommendations -complete cardiac echo ordered -continue with metoprolol 25 mg b.i.d. -vitals t.i.d. TSH WNL B.?CLOZAPINE: -DISCONTINUED -at 1st, it was continued in case Haldol, which was restarted, did not prove as effective as it was in the past. -it was then Lowered to Clozapine Since patient complained of feeling overmedicated and staff noted that she was less social in the milieu. -at this point will discontinue since it is too low to Have much effect if any; Some consideration of restarting Zyprexa and leaving it at a low dose since this too was partially helpful and on Zyprexa she was consistently attentive to ADLs. ZYPREXA:? Discontinue Restarting Haldol so will discontinue Zyprexa Only minimally helpful; -Will taper off more quickly to lower risk of QTc prolongation; while this may cause pt to psychiatrically decompensate, she is currently safe on unit and while developing torsades is rare, it's preferable to mitigate this risk -(Zyprexa had been chose since it is less likely to cause as TD/tremor verses 1st generations, and comes in an IM form as well as long-acting; discussed case with Dr. Castaneda who agrees with Zyprexa 30mg even though it's a? higher dose than what's typically considered a max dose since Zyprexa has already demonstrated some benefit and pt has been tolerating this medication; the alternative of adding a 2nd antipsychotic to Zyprexa?even if at a low dose carries roughly the same risk potential (or more risk) as risk of side-effects are increased when a person is simultaneously on 2 antipsychotics; at this point there are not many other good? options as there is some concern that patient had akathisia on risperidone; other typical antipsychotics may also produce tremor like Haldol; Thorazine is an option however it no longer comes in an IM form and? does not have a long-acting formula; ziprasidone remains an option however it does have more risk for QTC prolongation and patient has not allowed, until only until recently, any type of lab work/vitals). -EKG on 10/28 shows QTc WNL; insurance underwriter inquired and Broadcast Meteorologist Dr. Garcia says no follow up needed unless patient develops symptoms of dizziness/syncope Trazodone?100mg for sleep; this was prn; will now schedule and see if helps given it's lower risk of side- effects vs Tripletpal -DC Trileptal for now(started on 11/05 for insomnia); although medication worked to help pt sleep, given patients age and that she is currently on 2 antipsychotics (being cross-tapered), do not want to increase risks of side- effects; although pt does have frequent insomnia, she is not a danger to self/others and is redirectable; for now will utilize gentle redirection instead of trileptal -hydrocortisone PRN for c/o hemorrhoids -completed course of Augmentin started for tooth abscess -Left heal fissure from cracked skin; bacitracin TID for 4 days: completed fissure healing well -Machine Tool Technology Instructor discussed patient's treatment with her court affirmed healthcare proxy, Erin, patient's sister.? Machine Tool Technology Instructor and healthcare proxy reviewed medication options and agreed to trials of various medications listed below.? Erin reports that patient had a very bad tremor on Haldol however in new light of learning patient's past expressed feelings that she would prefer the tremor to losing her mind to psychosis, agrees that Haldol should be restarted and is included in the following options: Haldol: right hand tremor Zyprexa Risperidone: limited benefit; continued tremor Paliperidone: theoretical concern since similar to Risperdal Ziprasidone Perphenazine Fluphenazine Depakote Clozapine (if pt willing to accept blood draws) Past trials: Haldol Dec 100mg qmonthly: did her best however severe tremor Risperdal (sustenna): tremor/akathesia Abilify: not effective Zyprexa: minimally helpful insurance underwriter talked with Stefano Allen, outpt prescriber who says tried haldol (tremor), then risperdal (reported akathesia); trial of abilify ineffective; he says at baseline on meds she is witty, organized, clear minded, though shy. He says she typically finds some reason to get off a medicaiton and then does so Her care is being transfered to [facility] and Dr. Carrizales 01/08: no changes to primary team treatment plan. Aware of recent transition from Clozaril to Haldol. I spent minutes with the patient and/or on the patient floor today, greater than?50% of which was spent counseling/coordinating care. Reason for contiued inpatient stay Substantial Risk for: med/psych decompensation
[2022-01-12] MEDS: Metoprolol Tartrate 25 MG TABLET PO ×2 (08:33→19:42)
[2022-01-12 09:00] VITALS: PULSE 76; RESP 14; TEMP 36.2; O2SAT 97
--- NOTE | 2022-01-12 16:50 | HO.PSYCHPN ---
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 hallucinations and intermittent paranoid delusions. She reports she no longer feels overly medicated. [employer] Operator would like to see if outpatient therapist Halie could come for a visit to help assess patient's approach to baseline; patient agrees with this plan -patient remains only partially treated by Haldol. Will continue to see if patient improves further on this dose; have also considered restarting Zyprexa has this was also partially helpful. At this point, will taper and dc Clozapine since at this low dose, it's effect is minimal if at all. 01/11 Patient seems to be improving: Pt says she realizes that many of the things she was thinking were real are not real at all...typewriter assembly and parts inspector inquired further and pt said after she got her Haldol Dec yesterday, something changed for her and she felt clear minded. [employer] Burner Operator asked about some past delusions/AVH and at first she couldn't remember but eventually did and laughed at herself for it. 01/12 Patient continues to significantly improve; her ability to express her thoughts has increased in clarity and sophisticated szymanski over the past 2 days since she received her most recent Haldol deck on 01/10. Patient says she knows she has schizoaffective disorder, that it is a serious disease and that only Haldol seems to help with that symptoms. She talked about her past delusional thoughts and hallucinations, knowing they were not real. Patient is going to and appropriately contributing in groups, showering and with organized behavior. Patient accepted to [facility]. [employer] Burner Operator is ambivalent about whether patient should remain on the unit or move forward in go to [facility] as planned. On the 1 hand, patient has been floridly psychotic for about 4 months and has only improved over these past 2 days. Her stability is Possibly somewhat fragile and it is unclear if patient could again to compensate. Conversely, patient has finally emerged from her psychosis on this unit And with this staff; patient and staff know each other well and a transition to a new facility, with new staff, new rules could proved destabilizing. Will continue to discuss with team. Of note, patients right handed tremor is present; she says it's tolerable wants to continue with Haldol. Would like trial of Propranolol PLAN: HCP INVOKED AND AFFIRMED BY COURT ON 09/30/21 (HCP: Erin? [phone]) .5 right hand tremor; medication induced parkinsonism -trial of Propranlol 10mg pt said some trouble sleeping and asked for medication to help she reports urinating frequently but agrees she drinks a lot of H20 and will cut down;U/A negative; fully resloved added Clonidine 0.05mg qhs for insomnia complaint 1?Schizoaffective disoder, Bipolar type:? A. RESTARTed Haldol:? Pt received Haldol Dec 100mg qmonth on 01/10 Haldol 10mg qhs QTc WNL on 12/05/21 -Haldol IM p.r.n. if patient refuses p.o. medication -currently, no tremor; history of right hand tremor on Haldol; however it seems that patient did not get a trial of propranolol or other beta-laquita to mitigate tremor side effects * will 1st see if titrating Haldol has positive affect; if so will very likely taper and DC clozapine; it is possible that if patient could be on I a low dose of clozapine (or Zyprexa), she may not need as much Haldol which could mitigate tremor; however it is preferable to first see if adding propranolol would be effective rather than have patient on 2 antipsychotics 2.?Premature supraventricular complexes (see cardiology note below):RESOLVED per EKG on 12/05/21 -will continue to intermittently monitor Discussed case with hospitalist and following recommendations -complete cardiac echo ordered -continue with metoprolol 25 mg b.i.d. -vitals t.i.d. TSH WNL B.?CLOZAPINE: -DISCONTINUED -at 1st, it was continued in case Haldol, which was restarted, did not prove as effective as it was in the past. -it was then Lowered to Clozapine Since patient complained of feeling overmedicated and staff noted that she was less social in the milieu. -at this point will discontinue since it is too low to Have much effect if any; Some consideration of restarting Zyprexa and leaving it at a low dose since this too was partially helpful and on Zyprexa she was consistently attentive to ADLs. ZYPREXA:? Discontinue Restarting Haldol so will discontinue Zyprexa Only minimally helpful; -Will taper off more quickly to lower risk of QTc prolongation; while this may cause pt to psychiatrically decompensate, she is currently safe on unit and while developing torsades is rare, it's preferable to mitigate this risk -(Zyprexa had been chose since it is less likely to cause as TD/tremor verses 1st generations, and comes in an IM form as well as long-acting; discussed case with Dr. Castaneda who agrees with Zyprexa 30mg even though it's a? higher dose than what's typically considered a max dose since Zyprexa has already demonstrated some benefit and pt has been tolerating this medication; the alternative of adding a 2nd antipsychotic to Zyprexa?even if at a low dose carries roughly the same risk potential (or more risk) as risk of side-effects are increased when a person is simultaneously on 2 antipsychotics; at this point there are not many other good? options as there is some concern that patient had akathisia on risperidone; other typical antipsychotics may also produce tremor like Haldol; Thorazine is an option however it no longer comes in an IM form and? does not have a long-acting formula; ziprasidone remains an option however it does have more risk for QTC prolongation and patient has not allowed, until only until recently, any type of lab work/vitals). -EKG on 10/28 shows QTc WNL; typewriter assembly and parts inspector inquired and [employer] Dr. Garcia says no follow up needed unless patient develops symptoms of dizziness/syncope Trazodone?100mg for sleep; this was prn; will now schedule and see if helps given it's lower risk of side-effects vs Tripletpal -DC Trileptal for now(started on 11/05 for insomnia); although medication worked to help pt sleep, given patients age and that she is currently on 2 antipsychotics (being cross-tapered), do not want to increase risks of side-effects; although pt does have frequent insomnia, she is not a danger to self/others and is redirectable; for now will utilize gentle redirection instead of trileptal -hydrocortisone PRN for c/o hemorrhoids -completed course of Augmentin started for tooth abscess -Left heal fissure from cracked skin; bacitracin TID for 4 days: completed fissure healing well -Black [employer] Burner Operator discussed patient's treatment with her court affirmed healthcare proxy, Erin, patient's sister.? [employer] Burner Operator and healthcare proxy reviewed medication options and agreed to trials of various medications listed below.? Erin reports that patient had a very bad tremor on Haldol however in new light of learning patient's past expressed feelings that she would prefer the tremor to losing her mind to psychosis, agrees that Haldol should be restarted and is included in the following options: Haldol: right hand tremor Zyprexa Risperidone: limited benefit; continued tremor Paliperidone: theoretical concern since similar to Risperdal Ziprasidone Perphenazine Fluphenazine Depakote Clozapine (if pt willing to accept blood draws) Past trials: Haldol Dec 100mg qmonthly: did her best however severe tremor Risperdal (sustenna): tremor/akathesia Abilify: not effective Zyprexa: minimally helpful typewriter assembly and parts inspector talked with Stefano Allen, outpt prescriber who says tried haldol (tremor), then risperdal (reported akathesia); trial of abilify ineffective; he says at baseline on meds she is witty, organized, clear minded, though shy. He says she typically finds some reason to get off a medicaiton and then does so Her care is being transfered to [facility] and Dr. Carrizales 01/08: no changes to primary team treatment plan. Aware of recent transition from Clozaril to Haldol. I spent minutes with the patient and/or on the patient floor today, greater than?50% of which was spent counseling/coordinating care. Patient educated on: diagnosis Informed Consent: understands Reason for contiued inpatient stay Substantial Risk for: rapid decompensation
[2022-01-12 19:09] VITALS: BP 137/76; PULSE 90; RESP 17; TEMP 36.6; O2SAT 95
[2022-01-12] MEDS: cloNIDine HCL 0.1 MG TABLET 0.05 MG PO (19:42)
[2022-01-12] MEDS: traZODone HCL 100 MG TABLET PO (19:42)
[2022-01-12] MEDS: HaloperidoL 5 MG TABLET 10 MG PO (19:42)
[2022-01-13] MEDS: Metoprolol Tartrate 25 MG TABLET PO ×2 (08:15→19:40)
[2022-01-13 09:00] VITALS: BP 130/86; PULSE 100; RESP 14; TEMP 36.6; O2SAT 94
--- NOTE | 2022-01-13 10:36 | HO.PSYCHPN ---
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 staff; patient and staff know each other well and a transition to a new facility, with new staff, new rules could proved destabilizing. Will continue to discuss with team. Of note, patients right handed tremor is present; she says it's tolerable wants to continue with Haldol. Would like trial of Propranolol 01/13 remains organized in speech, thought, behavior; Voices gone, no delusional content, but now has a song that plays over and over in her head; will start PRN Zyprexa (chosen instead of more Haldol since zyprexa had some partial benefit in past and did not cause tremor; more haldol will likely make tremor worse). PLAN: HCP INVOKED AND AFFIRMED BY COURT ON 09/30/21 (HCP: Erin? [phone]) .5 right hand tremor; medication induced parkinsonism -trial of Propranlol 10mg pt said some trouble sleeping and asked for medication to help she reports urinating frequently but agrees she drinks a lot of H20 and will cut down;U/A negative; fully resloved added Clonidine 0.05mg qhs for insomnia complaint 1?Schizoaffective disoder, Bipolar type:? A. Haldol (was on this in community but was stopped due to tremor) -STARTED Zyprexa 2.5mg TID prn for AH Pt received Haldol Dec 100mg qmonth on 01/10 Haldol 10mg qhs QTc WNL on 12/05/21 PATIENT ACCEPTED TO [facility]; team discussing options -currently, no tremor; history of right hand tremor on Haldol; however it seems that patient did not get a trial of propranolol or other beta-laquita to mitigate tremor side effects * will 1st see if titrating Haldol has positive affect; if so will very likely taper and DC clozapine; it is possible that if patient could be on I a low dose of clozapine (or Zyprexa), she may not need as much Haldol which could mitigate tremor; however it is preferable to first see if adding propranolol would be effective rather than have patient on 2 antipsychotics 2.?Premature supraventricular complexes (see cardiology note below):RESOLVED per EKG on 12/05/21 -will continue to intermittently monitor Discussed case with hospitalist and following recommendations -complete cardiac echo ordered -continue with metoprolol 25 mg b.i.d. -vitals t.i.d. TSH WNL B.?CLOZAPINE: -DISCONTINUED -at 1st, it was continued in case Haldol, which was restarted, did not prove as effective as it was in the past. -it was then Lowered to Clozapine Since patient complained of feeling overmedicated and staff noted that she was less social in the milieu. -at this point will discontinue since it is too low to Have much effect if any; Some consideration of restarting Zyprexa and leaving it at a low dose since this too was partially helpful and on Zyprexa she was consistently attentive to ADLs. ZYPREXA:? Discontinue Restarting Haldol so will discontinue Zyprexa Only minimally helpful; -Will taper off more quickly to lower risk of QTc prolongation; while this may cause pt to psychiatrically decompensate, she is currently safe on unit and while developing torsades is rare, it's preferable to mitigate this risk -(Zyprexa had been chose since it is less likely to cause as TD/tremor verses 1st generations, and comes in an IM form as well as long-acting; discussed case with Dr. Castaneda who agrees with Zyprexa 30mg even though it's a? higher dose than what's typically considered a max dose since Zyprexa has already demonstrated some benefit and pt has been tolerating this medication; the alternative of adding a 2nd antipsychotic to Zyprexa?even if at a low dose carries roughly the same risk potential (or more risk) as risk of side-effects are increased when a person is simultaneously on 2 antipsychotics; at this point there are not many other good? options as there is some concern that patient had akathisia on risperidone; other typical antipsychotics may also produce tremor like Haldol; Thorazine is an option however it no longer comes in an IM form and? does not have a long-acting formula; ziprasidone remains an option however it does have more risk for QTC prolongation and patient has not allowed, until only until recently, any type of lab work/vitals). -EKG on 10/28 shows QTc WNL; ad copy writer inquired and Weight Shifter Dr. Garcia says no follow up needed unless patient develops symptoms of dizziness/syncope Trazodone?100mg for sleep; this was prn; will now schedule and see if helps given it's lower risk of side-effects vs Tripletpal -DC Trileptal for now(started on 11/05 for insomnia); although medication worked to help pt sleep, given patients age and that she is currently on 2 antipsychotics (being cross-tapered), do not want to increase risks of side-effects; although pt does have frequent insomnia, she is not a danger to self/others and is redirectable; for now will utilize gentle redirection instead of trileptal -hydrocortisone PRN for c/o hemorrhoids -completed course of Augmentin started for tooth abscess -Left heal fissure from cracked skin; bacitracin TID for 4 days: completed fissure healing well -[employer] Technician discussed patient's treatment with her court affirmed healthcare proxy, Erin, patient's sister.? Turfgrass Technician and healthcare proxy reviewed medication options and agreed to trials of various medications listed below.? Erin reports that patient had a very bad tremor on Haldol however in new light of learning patient's past expressed feelings that she would prefer the tremor to losing her mind to psychosis, agrees that Haldol should be restarted and is included in the following options: Haldol: right hand tremor Zyprexa Risperidone: limited benefit; continued tremor Paliperidone: theoretical concern since similar to Risperdal Ziprasidone Perphenazine Fluphenazine Depakote Clozapine (if pt willing to accept blood draws) Past trials: Haldol Dec 100mg qmonthly: did her best however severe tremor Risperdal (sustenna): tremor/akathesia Abilify: not effective Zyprexa: minimally helpful ad copy writer talked with Stefano Allen, outpt prescriber who says tried haldol (tremor), then risperdal (reported akathesia); trial of abilify ineffective; he says at baseline on meds she is witty, organized, clear minded, though shy. He says she typically finds some reason to get off a medicaiton and then does so Her care is being transfered to [facility] and Dr. Carrizales 01/08: no changes to primary team treatment plan. Aware of recent transition from Clozaril to Haldol. I spent minutes with the patient and/or on the patient floor today, greater than?50% of which was spent counseling/coordinating care. Patient educated on: diagnosis, medication risk/benefits and therapeutic strategies Informed Consent: understands Reason for contiued inpatient stay Substantial Risk for: rapid decompensation
[2022-01-13] MEDS: OLANZapine 2.5 MG TABLET PO ×3 (11:51→15:35)
[2022-01-13] MEDS: traZODone HCL 100 MG TABLET PO (19:39)
[2022-01-13] MEDS: cloNIDine HCL 0.1 MG TABLET 0.05 MG PO (19:39)
[2022-01-13] MEDS: HaloperidoL 5 MG TABLET 10 MG PO (19:40)
[2022-01-13 19:44] VITALS: BP 127/75; PULSE 92; RESP 16; TEMP 36.2; O2SAT 96
[2022-01-13] MEDS: traZODone HCL 50 MG TABLET PO (21:01)
[2022-01-14] MEDS: Propranolol HCL 10 MG TABLET PO (08:10)
[2022-01-14] MEDS: Metoprolol Tartrate 25 MG TABLET PO ×2 (08:10→20:26)
[2022-01-14 08:12] VITALS: BP 110/70; PULSE 72; RESP 16; TEMP 36.7; O2SAT 95
[2022-01-14] MEDS: OLANZapine 2.5 MG TABLET PO ×2 (10:59→17:30)
--- NOTE | 2022-01-14 11:27 | HO.PSYCHPN ---
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 asked for medication to help she reports urinating frequently but agrees she drinks a lot of H20 and will cut down;U/A negative; fully resloved added Clonidine 0.05mg qhs for insomnia complaint 1?Schizoaffective disoder, Bipolar type:? A. RESTARTed Haldol:? Pt received Haldol Dec 100mg qmonth on 01/10 Haldol 10mg qhs QTc WNL on 12/05/21 -Haldol IM p.r.n. if patient refuses p.o. medication -currently, no tremor; history of right hand tremor on Haldol; however it seems that patient did not get a trial of propranolol or other beta-laquita to mitigate tremor side effects * will 1st see if titrating Haldol has positive affect; if so will very likely taper and DC clozapine; it is possible that if patient could be on I a low dose of clozapine (or Zyprexa), she may not need as much Haldol which could mitigate tremor; however it is preferable to first see if adding propranolol would be effective rather than have patient on 2 antipsychotics 2.?Premature supraventricular complexes (see cardiology note below):RESOLVED per EKG on 12/05/21 -will continue to intermittently monitor Discussed case with hospitalist and following recommendations -complete cardiac echo ordered -continue with metoprolol 25 mg b.i.d. -vitals t.i.d. TSH WNL B.?CLOZAPINE: -DISCONTINUED -at 1st, it was continued in case Haldol, which was restarted, did not prove as effective as it was in the past. -it was then Lowered to Clozapine Since patient complained of feeling overmedicated and staff noted that she was less social in the milieu. -at this point will discontinue since it is too low to Have much effect if any; Some consideration of restarting Zyprexa and leaving it at a low dose since this too was partially helpful and on Zyprexa she was consistently attentive to ADLs. ZYPREXA:? Discontinue Restarting Haldol so will discontinue Zyprexa Only minimally helpful; -Will taper off more quickly to lower risk of QTc prolongation; while this may cause pt to psychiatrically decompensate, she is currently safe on unit and while developing torsades is rare, it's preferable to mitigate this risk -(Zyprexa had been chose since it is less likely to cause as TD/tremor verses 1st generations, and comes in an IM form as well as long-acting; discussed case with Dr. Castaneda who agrees with Zyprexa 30mg even though it's a? higher dose than what's typically considered a max dose since Zyprexa has already demonstrated some benefit and pt has been tolerating this medication; the alternative of adding a 2nd antipsychotic to Zyprexa?even if at a low dose carries roughly the same risk potential (or more risk) as risk of side-effects are increased when a person is simultaneously on 2 antipsychotics; at this point there are not many other good? options as there is some concern that patient had akathisia on risperidone; other typical antipsychotics may also produce tremor like Haldol; Thorazine is an option however it no longer comes in an IM form and? does not have a long-acting formula; ziprasidone remains an option however it does have more risk for QTC prolongation and patient has not allowed, until only until recently, any type of lab work/vitals). -EKG on 10/28 shows QTc WNL; lead technical writer inquired and Aged Or Disabled Carer Dr. Garcia says no follow up needed unless patient develops symptoms of dizziness/syncope Trazodone?100mg for sleep; this was prn; will now schedule and see if helps given it's lower risk of side-effects vs Tripletpal -DC Trileptal for now(started on 11/05 for insomnia); although medication worked to help pt sleep, given patients age and that she is currently on 2 antipsychotics (being cross-tapered), do not want to increase risks of side-effects; although pt does have frequent insomnia, she is not a danger to self/others and is redirectable; for now will utilize gentle redirection instead of trileptal -hydrocortisone PRN for c/o hemorrhoids -completed course of Augmentin started for tooth abscess -Left heal fissure from cracked skin; bacitracin TID for 4 days: completed fissure healing well -Biscuit Machine Operator discussed patient's treatment with her court affirmed healthcare proxy, Erin, patient's sister.? Biscuit Machine Operator and healthcare proxy reviewed medication options and agreed to trials of various medications listed below.? Erin reports that patient had a very bad tremor on Haldol however in new light of learning patient's past expressed feelings that she would prefer the tremor to losing her mind to psychosis, agrees that Haldol should be restarted and is included in the following options: Haldol: right hand tremor Zyprexa Risperidone: limited benefit; continued tremor Paliperidone: theoretical concern since similar to Risperdal Ziprasidone Perphenazine Fluphenazine Depakote Clozapine (if pt willing to accept blood draws) Past trials: Haldol Dec 100mg qmonthly: did her best however severe tremor Risperdal (sustenna): tremor/akathesia Abilify: not effective Zyprexa: minimally helpful lead technical writer talked with Stefano Allen, outpt prescriber who says tried haldol (tremor), then risperdal (reported akathesia); trial of abilify ineffective; he says at baseline on meds she is witty, organized, clear minded, though shy. He says she typically finds some reason to get off a medicaiton and then does so Her care is being transfered to [facility] and Dr. Carrizales 01/08: no changes to primary team treatment plan. Aware of recent transition from Clozaril to Haldol. 01/14: Continue current plans and regimen. No changes were made today I spent minutes with the patient and/or on the patient floor today, greater than?50% of which was spent counseling/coordinating care. Reason for contiued inpatient stay Substantial Risk for: med/psych decompensation
[2022-01-14 13:00] VITALS: BP 121/69; PULSE 80; RESP 16; TEMP 36.7; O2SAT 95
[2022-01-14 17:33] VITALS: BP 122/73; PULSE 74; TEMP 36.6; O2SAT 96
[2022-01-14] MEDS: HaloperidoL 5 MG TABLET 10 MG PO (20:25)
[2022-01-14] MEDS: cloNIDine HCL 0.1 MG TABLET 0.05 MG PO (20:26)
[2022-01-14] MEDS: traZODone HCL 100 MG TABLET PO (20:28)
[2022-01-15] MEDS: Propranolol HCL 10 MG TABLET PO (08:42)
[2022-01-15] MEDS: Metoprolol Tartrate 25 MG TABLET PO ×2 (08:42→19:36)
[2022-01-15 09:00] VITALS: BP 132/65; PULSE 104; TEMP 36.4
[2022-01-15] MEDS: OLANZapine 2.5 MG TABLET PO ×2 (10:22→18:38)
--- NOTE | 2022-01-15 11:12 | P.PNPSI_ITS ---
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 right handed tremor is present; she says it's tolerable wants to continue with Haldol. Would like trial of Propranolol 01/13 remains organized in speech, thought, behavior; Voices gone, no delusional content, but now has a song that plays over and over in her head; will start PRN Zyprexa (chosen instead of more Haldol since zyprexa had some partial benefit in past and did not cause tremor; more haldol will likely make tremor worse). PLAN: HCP INVOKED AND AFFIRMED BY COURT ON 09/30/21 (HCP: Erin? [phone]) .5 right hand tremor; medication induced parkinsonism -trial of Propranlol 10mg pt said some trouble sleeping and asked for medication to help she reports urinating frequently but agrees she drinks a lot of H20 and will cut down;U/A negative; fully resloved added Clonidine 0.05mg qhs for insomnia complaint 1?Schizoaffective disoder, Bipolar type:? A. Haldol (was on this in community but was stopped due to tremor) -STARTED Zyprexa 2.5mg TID prn for AH Pt received Haldol Dec 100mg qmonth on 01/10 Haldol 10mg qhs QTc WNL on 12/05/21 PATIENT ACCEPTED TO [facility]; team discussing options -currently, no tremor; history of right hand tremor on Haldol; however it seems that patient did not get a trial of propranolol or other beta-laquita to mitigate tremor side effects * will 1st see if titrating Haldol has positive affect; if so will very likely taper and DC clozapine; it is possible that if patient could be on I a low dose of clozapine (or Zyprexa), she may not need as much Haldol which could mitigate tremor; however it is preferable to first see if adding propranolol would be effective rather than have patient on 2 antipsychotics 2.?Premature supraventricular complexes (see cardiology note below):RESOLVED per EKG on 12/05/21 -will continue to intermittently monitor Discussed case with hospitalist and following recommendations -complete cardiac echo ordered -continue with metoprolol 25 mg b.i.d. -vitals t.i.d. TSH WNL B.?CLOZAPINE: -DISCONTINUED -at 1st, it was continued in case Haldol, which was restarted, did not prove as effective as it was in the past. -it was then Lowered to Clozapine Since patient complained of feeling overmedicated and staff noted that she was less social in the milieu. -at this point will discontinue since it is too low to Have much effect if any; Some consideration of restarting Zyprexa and leaving it at a low dose since this too was partially helpful and on Zyprexa she was consistently attentive to ADLs. ZYPREXA:? Discontinue Restarting Haldol so will discontinue Zyprexa Only minimally helpful; -Will taper off more quickly to lower risk of QTc prolongation; while this may cause pt to psychiatrically decompensate, she is currently safe on unit and while developing torsades is rare, it's preferable to mitigate this risk -(Zyprexa had been chose since it is less likely to cause as TD/tremor verses 1st generations, and comes in an IM form as well as long-acting; discussed case with Dr. Castaneda who agrees with Zyprexa 30mg even though it's a? higher dose than what's typically considered a max dose since Zyprexa has already demonstrated some benefit and pt has been tolerating this medication; the alternative of adding a 2nd antipsychotic to Zyprexa?even if at a low dose carries roughly the same risk potential (or more risk) as risk of side-effects are increased when a person is simultaneously on 2 antipsychotics; at this point there are not many other good? options as there is some concern that patient had akathisia on risperidone; other typical antipsychotics may also produce tremor like Haldol; Thorazine is an option however it no longer comes in an IM form and? does not have a long-acting formula; ziprasidone remains an option however it does have more risk for QTC prolongation and patient has not allowed, until only until recently, any type of lab work/vitals). -EKG on 10/28 shows QTc WNL; selling underwriter inquired and Glass B[employer] Helper Dr. Garcia says no follow up needed unless patient develops symptoms of dizziness/syncope Trazodone?100mg for sleep; this was prn; will now schedule and see if helps given it's lower risk of side- effects vs Tripletpal -DC Trileptal for now(started on 11/05 for insomnia); although medication worked to help pt sleep, given patients age and that she is currently on 2 antipsychotics (being cross-tapered), do not want to increase risks of side- effects; although pt does have frequent insomnia, she is not a danger to self/others and is redirectable; for now will utilize gentle redirection instead of trileptal -hydrocortisone PRN for c/o hemorrhoids -completed course of Augmentin started for tooth abscess -Left heal fissure from cracked skin; bacitracin TID for 4 days: completed fissure healing well -Senior Linux Systems Administrator discussed patient's treatment with her court affirmed healthcare proxy, Erin, patient's sister.? Senior Linux Systems Administrator and healthcare proxy reviewed medication options and agreed to trials of various medications listed below.? Erin reports that patient had a very bad tremor on Haldol however in new light of learning patient's past expressed feelings that she would prefer the tremor to losing her mind to psychosis, agrees that Haldol should be restarted and is included in the following options: Haldol: right hand tremor Zyprexa Risperidone: limited benefit; continued tremor Paliperidone: theoretical concern since similar to Risperdal Ziprasidone Perphenazine Fluphenazine Depakote Clozapine (if pt willing to accept blood draws) Past trials: Haldol Dec 100mg qmonthly: did her best however severe tremor Risperdal (sustenna): tremor/akathesia Abilify: not effective Zyprexa: minimally helpful selling underwriter talked with Stefano Allen, outpt prescriber who says tried haldol (tremor), then risperdal (reported akathesia); trial of abilify ineffective; he says at baseline on meds she is witty, organized, clear minded, though shy. He says she typically finds some reason to get off a medicaiton and then does so Her care is being transfered to [facility] and Dr. Carrizales 01/08: no changes to primary team treatment plan. Aware of recent transition from Clozaril to Haldol. 01/15: Continue current treatment plan and regimen I spent minutes with the patient and/or on the patient floor today, greater than?50% of which was spent counseling/coordinating care. Reason for contiued inpatient stay Substantial Risk for: other
[2022-01-15 18:00] VITALS: BP 126/68; PULSE 78; TEMP 36.7
[2022-01-15] MEDS: HaloperidoL 5 MG TABLET 10 MG PO (19:35)
[2022-01-15] MEDS: cloNIDine HCL 0.1 MG TABLET 0.05 MG PO (19:35)
[2022-01-15] MEDS: traZODone HCL 100 MG TABLET PO (19:36)
[2022-01-16] MEDS: Propranolol HCL 10 MG TABLET PO (08:35)
[2022-01-16] MEDS: Metoprolol Tartrate 25 MG TABLET PO ×2 (08:36→19:30)
--- NOTE | 2022-01-16 10:28 | P.PNPSI_ITS ---
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 behavior; Voices gone, no delusional content, but now has a song that plays over and over in her head; will start PRN Zyprexa (chosen instead of more Haldol since zyprexa had some partial benefit in past and did not cause tremor; more haldol will likely make tremor worse). 01/16 Patient remains clear minded with organized thinking, speech behavior. She has a residual auditory hallucination of a Leticia that is on a repeating loop which was not helped by p.r.n. Zyprexa 2.5 mg. Patient asked for Haldol p.r.n. instead. Patient accepts going to [facility] even though she is a little anxious about it. She understands that the goal is for her to return home. Patient has significantly improved and is almost back to baseline, however she continues to have an intrusive auditory hallucination and needs more time to set up aftercare plans for stable transition to home. Because of this team agrees That it is best for patient to go to [facility]. Tin Plater discussed case with Dr. Amador Massey. PLAN: HCP INVOKED AND AFFIRMED BY COURT ON 09/30/21 (HCP: Erin? [phone]) .5 right hand tremor; medication induced parkinsonism -trial of Propranlol 10mg pt said some trouble sleeping and asked for medication to help she reports urinating frequently but agrees she drinks a lot of H20 and will cut down;U/A negative; fully resloved added Clonidine 0.05mg qhs for insomnia complaint 1?Schizoaffective disoder, Bipolar type:? A. Haldol (was on this in community but was stopped due to tremor) -STARTED Haldol 2.5mg TID prn for AH Pt received Haldol Dec 100mg qmonth on 01/10 Haldol 10mg qhs QTc WNL on 12/05/21 PATIENT ACCEPTED TO [facility]; team discussing options -currently, no tremor; history of right hand tremor on Haldol; however it seems that patient did not get a trial of propranolol or other beta-laquita to mitigate tremor side effects * will 1st see if titrating Haldol has positive affect; if so will very likely taper and DC clozapine; it is possible that if patient could be on I a low dose of clozapine (or Zyprexa), she may not need as much Haldol which could mitigate tremor; however it is preferable to first see if adding propranolol would be effective rather than have patient on 2 antipsychotics 2.?Premature supraventricular complexes (see cardiology note below):RESOLVED per EKG on 12/05/21 -will continue to intermittently monitor Discussed case with hospitalist and following recommendations -complete cardiac echo ordered -continue with metoprolol 25 mg b.i.d. -vitals t.i.d. TSH WNL B.?CLOZAPINE: -DISCONTINUED -at 1st, it was continued in case Haldol, which was restarted, did not prove as effective as it was in the past. -it was then Lowered to Clozapine Since patient complained of feeling overmedicated and staff noted that she was less social in the milieu. -at this point will discontinue since it is too low to Have much effect if any; Some consideration of restarting Zyprexa and leaving it at a low dose since this too was partially helpful and on Zyprexa she was consistently attentive to ADLs. ZYPREXA:? Discontinue Restarting Haldol so will discontinue Zyprexa Only minimally helpful; -Will taper off more quickly to lower risk of QTc prolongation; while this may cause pt to psychiatrically decompensate, she is currently safe on unit and while developing torsades is rare, it's preferable to mitigate this risk -(Zyprexa had been chose since it is less likely to cause as TD/tremor verses 1st generations, and comes in an IM form as well as long-acting; discussed case with Dr. Castaneda who agrees with Zyprexa 30mg even though it's a? higher dose than what's typically considered a max dose since Zyprexa has already demonstrated some benefit and pt has been tolerating this medication; the alternative of adding a 2nd antipsychotic to Zyprexa?even if at a low dose carries roughly the same risk potential (or more risk) as risk of side-effects are increased when a person is simultaneously on 2 antipsychotics; at this point there are not many other good? options as there is some concern that patient had akathisia on risperidone; other typical antipsychotics may also produce tremor like Haldol; Thorazine is an option however it no longer comes in an IM form and? does not have a long-acting formula; ziprasidone remains an option however it does have more risk for QTC prolongation and patient has not allowed, until only until recently, any type of lab work/vitals). -EKG on 10/28 shows QTc WNL; typewriter operator automatic inquired and Radiology Administrator Dr. Garcia says no follow up needed unless patient develops symptoms of dizziness/syncope Trazodone?100mg for sleep; this was prn; will now schedule and see if helps given it's lower risk of side- effects vs Tripletpal -DC Trileptal for now(started on 11/05 for insomnia); although medication worked to help pt sleep, given patients age and that she is currently on 2 antipsychotics (being cross-tapered), do not want to increase risks of side-ef fects; although pt does have frequent insomnia, she is not a danger to self/others and is redirectable; for now will utilize gentle redirection instead of trileptal -hydrocortisone PRN for c/o hemorrhoids -completed course of Augmentin started for tooth abscess -Left heal fissure from cracked skin; bacitracin TID for 4 days: completed fissure healing well -Tin [employer]ater discussed patient's treatment with her court affirmed healthcare proxy, Erin, patient's sister.? Tin Plater and healthcare proxy reviewed medication options and agreed to trials of various medications listed below.? Erin reports that patient had a very bad tremor on Haldol however in new light of learning patient's past expressed feelings that she would prefer the tremor to losing her mind to psychosis, agrees that Haldol should be restarted and is included in the following options: Haldol: right hand tremor Zyprexa Risperidone: limited benefit; continued tremor Paliperidone: theoretical concern since similar to Risperdal Ziprasidone Perphenazine Fluphenazine Depakote Clozapine (if pt willing to accept blood draws) Past trials: Haldol Dec 100mg qmonthly: did her best however severe tremor Risperdal (sustenna): tremor/akathesia Abilify: not effective Zyprexa: minimally helpful typewriter operator automatic talked with Stefano Allen, outpt prescriber who says tried haldol (tremor), then risperdal (reported akathesia); trial of abilify ineffective; he says at baseline on meds she is witty, organized, clear minded, though shy. He says she typically finds some reason to get off a medicaiton and then does so Her care is being transfered to [facility] and Dr. Carrizales 01/08: no changes to primary team treatment plan. Aware of recent transition from Clozaril to Haldol. 01/15: Continue current treatment plan and regimen I spent minutes with the patient and/or on the patient floor today, greater than?50% of which was spent counseling/coordinating care. Patient educated on: diagnosis, medication risk/benefits and therapeutic strategies Guardian/Caregiver educated on: diagnosis, medication risk/benefits and therapeutic strategies Informed Consent: understands Reason for contiued inpatient stay Substantial Risk for: med/psych decompensation
[2022-01-16] MEDS: HaloperidoL 1 MG TABLET 2 MG PO ×2 (12:44→15:44)
[2022-01-16 13:20] LABS: COVID-19 Test Negative (Negative)
[2022-01-16] MEDS: HaloperidoL 5 MG TABLET 10 MG PO (19:29)
[2022-01-16] MEDS: cloNIDine HCL 0.1 MG TABLET 0.05 MG PO (19:31)
[2022-01-16] MEDS: traZODone HCL 100 MG TABLET PO (19:32)
[2022-01-16 20:15] VITALS: BP 120/62; PULSE 73; TEMP 37.1
[2022-01-17 08:18] VITALS: BP 120/74; PULSE 81; RESP 16; O2SAT 97
[2022-01-17] MEDS: Propranolol HCL 10 MG TABLET PO (08:19)
[2022-01-17] MEDS: Metoprolol Tartrate 25 MG TABLET PO (08:19)
[2022-01-17] MEDS: HaloperidoL 1 MG TABLET 2 MG PO (08:20)
--- NOTE | 2022-01-17 10:12 | PM.PSYDC ---
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 Plan of Treatment: Transfer to [facility] Take medications as prescribed Assessment: Risk assessment at time of discharge:? Patient was interviewed prior to discharge and found to be fully oriented and without any SI or HI. Patient has insight and demonstrates good judgment in terms of wanting to pursue treatment. Patient is not in imminent risk of harm to self or others. Patient significantly improved and is discharging to a step-down. Discharge Date/Time: 01/17/22 13:10
[2022-01-17] MEDS: clonazePAM 0.5 MG TABLET PO (10:35)
[2022-01-18 11:41] LABS: TS Negative Control Passed; TS Panel A 0; TS Panel B 0; TS Positive Control Passed; TSpotTB Negative (Negative)
== END 2022-01-17 13:10 | DRG 885 ==
LOC: HO.ED 09-01 12:14 → HO.PM5 09-01 13:47 → HO.EDOVER 09-01 14:22 → HO.PM5 09-01 15:18
PROVIDERS: Clinical Nurse Specialist Psychiatric/Mental Health; Clinical Nurse Specialist Psychiatric/Mental Health, Adult; Hospitalist; Physician Assistant; Psychiatry & Neurology Psychiatry; Admitting Provider Psychiatry & Neurology Psychiatry; Emergency Provider Emergency Medicine; Visit Provider Psychiatry & Neurology Psychiatry
DX: F25.0 Schizoaffective disorder, bipolar type (principal); I47.1 Supraventricular tachycardia; Z20.822 Contact with and (suspected) exposure to COVID-19; E66.3 Overweight; Z68.37 Body mass index [BMI] 37.0-37.9, adult; Z91.14 Patient's other noncompliance with medication regimen; Z79.899 Other long term (current) drug therapy
CPT/HCPCS: 36415; 71045; 71046; 80048; 80051; 80061; 80076; 80307; 81001; 81003; 82565; 82607; 82746; 83036; 83735; 84100; 84439; 84443; 84484; 84520; 85025; 85048; 85379; 86481; 87086; 87491; 87591; 87635; 93005; 99285